=== PATIENT | female | born 2000 | race Caucasian/White ===

== ENCOUNTER 2025-03-13 12:27 | Emergency (ER) | payer MEDICAID, SELFPAY ==
[2025-03-13] VITALS (40 sets, daily range): BP systolic 80–126; BP diastolic 27–87; PULSE 64–148; RESP 12–30; TEMP 36.5–36.9; O2SAT 96–100
--- NOTE | 2025-03-13 12:30 | DI.CT_ITS ---
Exam(s) CT HEAD WO EXAM: CT HEAD WO CLINICAL HISTORY: Seizure like activity. TECHNIQUE: Imaging Protocol: Axial computed tomography images with coronal and sagittal reformatted images were created and reviewed COMPARISON: No exams were available for comparison FINDINGS: Ventricles and Extra axial spaces: Normal in size and morphology for the patient's age. Hemorrhage: None. Cerebral parenchyma: No evidence of acute infarct or mass. Midline shift: None. Brainstem/Cerebellum: Normal. Bones: No skull or facial fractures. Visualized Paranasal sinuses:Clear. Mastoids: Clear. Soft Tissues: Unremarkable. ORBITS: Unremarkable. PITUITARY: Not enlarged. IMPRESSION: No acute intracranial process. RADIATION DOSE DELIVERED: Total DLP DATA REPOSITORY: All CT scans at this facility are submitted to the National Radiology Data Registry (NRDR) Dose Index Registry (DIR) with the [employer] (A[employer]). RADIATION OPTIMIZATION: All CT scans at this facility use at least one of these dose optimization techniques: automated exposure control; mA and/or kV adjustment per patient size (includes targeted exams where dose is matched to clinical indication); or iterative reconstruction.
--- NOTE | 2025-03-13 12:30 | DI.RAD_ITS ---
Exam(s) XR CHEST 1V IN DI DEPT EXAM: XR CHEST 1V IN DI DEPT CLINICAL HISTORY: Seizure TECHNIQUE: 2D digital imaging was performed. COMPARISON: No exams were available for comparison FINDINGS: LUNGS: Clear. No pleural abnormality seen. HEART: Normal size. AORTA: Normal diameter. BONES: Unremarkable for age. Soft tissues: Unremarkable. IMPRESSION: No acute findings. DATA REPOSITORY: RADIATION DOSE DELIVERED:
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
[2025-03-13 12:46] LABS: Abs Immature Grans 0.02 10^3/uL (0.0-0.06); HCT 35.4 % (36.0-46.0); HGB 11.5 g/dL (11.2-15.7); Immature Grans % 0.3 %; MCH 28.8 pg (27.0-33.0); MCHC 32.5 % (32.0-36.0); MCV 89 fL (80-95); MPV 9.5 fL (8.0-11.0); Platelet Count 161 10^3/uL (130-400); RBC 3.99 10^6/uL (3.93-5.22); RDW 13.2 % (11.7-14.6); RDW-SD 43.0 fL; WBC 6.27 10^3/uL (4.4-10.8)
[2025-03-13 13:03] LABS: ALT 17 U/L (14-59); AST 14 U/L (15-37); Albumin 3.9 g/dL (3.4-5.0); Alkaline Phosphatase 54 U/L (46-116); Anion Gap 12.2 mmol/L (3-11); BUN 18 mg/dL (7-18); Bilirubin, Total 0.6 mg/dL (0.2-1.0); CO2 24.8 mmol/L (21.0-32.0); Calcium 9.0 mg/dL (8.5-10.1); Chloride 104 mmol/L (98-107); Estimated GFR 92.12 (mL/min/1.73m2); Glucose 126 mg/dL (74-106); Lipase 42 U/L (<78); Magnesium 1.7 mg/dL (1.8-2.4); Potassium 4.0 mmol/L (3.5-5.1); Sodium 141 mmol/L (136-145); Total Protein 7.2 g/dL (6.4-8.2)
[2025-03-13 13:06] LABS: Salicylate < 2.8 mg/dL (<2.8)
[2025-03-13 13:07] LABS: Acetaminophen < 2 ug/mL (10-30)
[2025-03-13] MEDS: diazePAM 10 MG/2 ML SYR (13:27)
[2025-03-13 13:46] LABS: INR 1.1 (0.9-1.1); PTT Activated 22.7 sec (20.6-30.2); Prothrombin Time 10.6 sec (9.1-11.1)
[2025-03-13 14:01] LABS: Glucose Negative (Negative)
[2025-03-13 14:11] LABS: RBC 0-2 HPF (0-2); WBC 0-2 HPF (0-5)
[2025-03-13 14:12] LABS: C & S Indicated? No
[2025-03-13] MEDS: Metoclopramide 10 MG/2 ML VIAL IVP (14:12)
[2025-03-13] MEDS: levETIRAcetam 1,000 MG in Normal Saline 100 ML 400 MG IVPB (14:12)
--- NOTE | 2025-03-13 14:13 | DI.US_ITS ---
Exam(s) US PELVIS EXAM: US PELVIS CLINICAL HISTORY: Lower abd PAin, Hx endometriosis TECHNIQUE: Transabdominal imaging was performed using standard protocol. COMPARISON: No exams were available for comparison FINDINGS: The bladder is unremarkable as visualized. UTERUS: Anteverted. 7.6 x 2.7 x 4.1 cm Endometrium: 6 -7 mm, homogeneous Myometrium: Unremarkable. Cervix: Unremarkable. Vagina: Tampon present. OVARIES: Right: Cyst or mass: None. Left: Cyst or mass: None. DOPPLER: Color: Symmetric and uniform flow to both ovaries. No hyperemia. CUL-DE-SAC: Free fluid: None. IMPRESSION: 1. Normal-appearing uterus with endometrial stripe within normal limits. 2. Unremarkable bilateral ovaries. DATA REPOSITORY:
[2025-03-13 14:17] LABS: Cannabinoids THC Positive (Negative); METHADONE URINE SCREEN Negative (Negative)
[2025-03-13 14:29] LABS: TSH (W/Ref FT4) 0.50 uIU/mL (0.36-3.74)
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
[2025-03-13 15:38] LABS: Creatine Kinase 61 U/L (26-192)
[2025-03-13 15:44] LABS: COVID-19 PCR Negative (Negative); RSV PCR Negative (Negative)
--- NOTE | 2025-03-13 16:49 | W.SUR.HO ---
Registration Status: REG ER Primary Language: Preferred Language: Faroese v v v v v v v v v Sending and/or Receiving Nurses: Please use comment section below to note any information pertinent to the patient hand-off not included above. Information / Comments: Report received from: Active Medications Generic Name Dose Route Start Last Admin Trade Name Freq PRN Reason Stop Dose Admin Acetaminophen 650 mg 03/13/25 15:22 Acetaminophen 325 Mg Tab PO Q4H PRN PRN Acetaminophen 0 mg 03/13/25 15:22 Acetaminophen 325 Mg Tab PO Q4H PRN PRN Al Hydrox/Mg Hydrox/Simethicone 30 ml 03/13/25 15:22 Mylanta Suspension 30 Ml Cup PO Q2H PRN PRN Docusate Sodium 100 mg 03/13/25 15:22 Docusate Sodium 100 Mg Cap PO TID PRN PRN Sodium Chloride 1,000 mls @ 125 mls/hr 03/13/25 15:30 Saline 1000ml Bag IV INFUSION [facility] IV Miscellaneous Supplies 1 each 03/13/25 12:45 Iv Access-Emergency Dept IV DIRECTED [facility] IV Miscellaneous Supplies 1 each 03/13/25 13:45 Iv Access IV DIRECTED [facility] Magnesium Hydroxide 30 ml 03/13/25 15:22 Milk Of Magnesia 30 Ml Cup PO DAILY PRN PRN Metoclopramide HCl 5 mg 03/13/25 15:36 Metoclopramide 10 Mg/2 Ml Vial IVP QID PRN Nausea / Vomiting Polyethylene Glycol 17 gm 03/13/25 15:22 Polyethylene Glycol 3350 17 Gm Packet PO DAILY PRN PRN Constipation Polyethylene Glycol 17 gm 03/13/25 15:22 Polyethylene Glycol 3350 17 Gm Packet PO DAILY PRN PRN Constipation Sodium Chloride 0 ml 03/13/25 12:34 Normal Saline Flush 10 Ml Syr IVP PRN PRN Sodium Chloride 0 ml 03/13/25 20:00 Normal Saline Flush 10 Ml Syr IVP BID COLLEEN Sodium Chloride 0 ml 03/13/25 12:34 Normal Saline 10 Ml Vial IJ DIRECTED PRN Sodium Chloride 0 ml 03/13/25 13:39 Normal Saline Flush 10 Ml Syr IVP PRN PRN Sodium Chloride 0 ml 03/13/25 20:00 Normal Saline Flush 10 Ml Syr IVP BID COLLEEN Sodium Chloride 0 ml 03/13/25 13:39 Normal Saline 10 Ml Vial IJ DIRECTED PRN Diet 03/13/25 Dinner Regular/Normal [DIET] Consults 03/13/25 15:24 TeleNeurology Consult [[facility] TeleNeurology Consult] [CONS] Routine Respiratory Pulse Oximetry 100 Pulse Oximetry 100 Pulse Oximetry 98 Pulse Oximetry 98 Pulse Oximetry 97 Pulse Oximetry 98 Pulse Oximetry 98 Pulse Oximetry 97 Pulse Oximetry 100 Pulse Oximetry 99 Pulse Oximetry 100 Pulse Oximetry 100 Pulse Oximetry 96 Pulse Oximetry 98 Pulse Oximetry 99 Pulse Oximetry 100 Pulse Oximetry 100 Pulse Oximetry 98 Pulse Oximetry 99 Pulse Oximetry 96 Pulse Oximetry 97 Pulse Oximetry 97 Pulse Oximetry 97 Pulse Oximetry 98 Pulse Oximetry 100 Oxygen Flow Rate 0 clonazepam (From Klonopin) Allergy (Unknown, Verified 03/13/25 13:45) unknown haloperidol (From Haldol) Adverse Reaction (Severe, Verified 03/13/25 13:45) Agitation hydromorphone (From Dilaudid) Adverse Reaction (Severe, Verified 03/13/25 13:45) Unknown lorazepam (From Ativan) Adverse Reaction (Intermediate, Verified 03/13/25 13:45) Agitation Resuscitation Status Full Code OXYGEN ENRICHMENT NEC (01) 03/13/25 12:24 03/13/25 13:25 03/13/25 13:32 Temperature 36.5 C Pulse 110 H 147 H Respiratory Rate 17 30 H Respiratory Effort Normal Respiratory Depth Shallow Respiratory Pattern Tachypnea Blood Pressure 95/50 L Blood Pressure Mean Blood Pressure Position Supine Pulse Oximetry 100 98 Oxygen Delivery Method Room Air Oxygen Flow Rate 0 Comment 03/13/25 13:35 03/13/25 13:37 03/13/25 13:38 Temperature Pulse 112 H 112 H 118 H Respiratory Rate 28 H 26 H Respiratory Effort Respiratory Depth Respiratory Pattern Blood Pressure 112/27 L 112/27 L 115/60 Blood Pressure Mean 57 57 69 Blood Pressure Position Pulse Oximetry 97 97 Oxygen Delivery Method Oxygen Flow Rate Comment 03/13/25 13:40 03/13/25 13:50 03/13/25 13:50 Temperature Pulse 120 H 105 H Respiratory Rate 24 19 Respiratory Effort Normal Non-Labored Respiratory Depth Normal Respiratory Pattern Normal Blood Pressure Blood Pressure Mean Blood Pressure Position Pulse Oximetry 97 96 Oxygen Delivery Method Oxygen Flow Rate Comment 03/13/25 13:52 03/13/25 14:00 03/13/25 14:01 Temperature Pulse 98 H 93 H 92 H Respiratory Rate 17 22 17 Respiratory Effort Respiratory Depth Respiratory Pattern Blood Pressure 80/47 L 98/62 L Blood Pressure Mean 56 68 Blood Pressure Position Pulse Oximetry 99 98 Oxygen Delivery Method Oxygen Flow Rate Comment provider aware continue with NS bolus 03/13/25 14:10 03/13/25 14:16 03/13/25 14:20 Temperature Pulse 87 78 88 Respiratory Rate 12 12 18 Respiratory Effort Respiratory Depth Respiratory Pattern Blood Pressure 104/62 Blood Pressure Mean 71 Blood Pressure Position Pulse Oximetry 100 100 99 Oxygen Delivery Method Oxygen Flow Rate Comment 03/13/25 14:50 03/13/25 14:53 03/13/25 15:01 Temperature Pulse 76 85 99 H Respiratory Rate 17 17 13 Respiratory Effort Respiratory Depth Respiratory Pattern Blood Pressure 93/47 L 115/63 Blood Pressure Mean 61 79 Blood Pressure Position Pulse Oximetry 98 96 100 Oxygen Delivery Method Oxygen Flow Rate Comment 03/13/25 15:02 03/13/25 15:10 03/13/25 15:16 Temperature Pulse 83 74 101 H Respiratory Rate 21 16 17 Respiratory Effort Respiratory Depth Respiratory Pattern Blood Pressure 99/61 L Blood Pressure Mean 75 Blood Pressure Position Pulse Oximetry 100 99 100 Oxygen Delivery Method Oxygen Flow Rate Comment 03/13/25 15:20 03/13/25 15:30 03/13/25 15:31 Temperature Pulse 76 75 73 Respiratory Rate 18 17 17 Respiratory Effort Respiratory Depth Respiratory Pattern Blood Pressure 102/46 L Blood Pressure Mean 65 Blood Pressure Position Pulse Oximetry 97 98 98 Oxygen Delivery Method Oxygen Flow Rate Comment 03/13/25 15:40 03/13/25 15:46 03/13/25 15:50 Temperature Pulse 71 74 77 Respiratory Rate 18 17 17 Respiratory Effort Respiratory Depth Respiratory Pattern Blood Pressure 88/50 L Blood Pressure Mean 61 Blood Pressure Position Pulse Oximetry 97 98 98 Oxygen Delivery Method Oxygen Flow Rate Comment 03/13/25 15:59 03/13/25 16:00 Temperature Pulse 72 64 Respiratory Rate 15 16 Respiratory Effort Respiratory Depth Respiratory Pattern Blood Pressure 100/62 96/52 L Blood Pressure Mean 71 64 Blood Pressure Position Pulse Oximetry 100 100 Oxygen Delivery Method Oxygen Flow Rate Comment v v v v v v v v v Sending and/or Receiving Nurses: Please use comment section below to note any information pertinent to the patient hand-off not included above. Information / Comments: Report received from: Hand off received from Ruthy prior to patient going to ultrasound approximately 1630. Awaiting arrival after ultrasound.
[2025-03-14 10:38] LABS: HSV 1 DNA Result Negative (Negative); HSV 2 DNA Result Negative (Negative)
[2025-03-14 12:11] LABS: Chlamydia Result Negative (Negative); GC Result Negative (Negative)
--- NOTE | 2025-03-14 17:10 | NUR.NOTE ---
Accessed Pt chart to check what images were taken for seizures, asked Radiology to push images to Tele Neuro for todays visit
== END 2025-03-13 17:18 | disposition short-term general hospital (02) ==
LOC: ER 15:59
PROVIDERS: Hospitalist; Emergency Provider Registered Nurse Emergency
DX: R56.9 Unspecified convulsions (principal); J02.9 Acute pharyngitis, unspecified; R11.2 Nausea with vomiting, unspecified; Z53.29 Procedure and treatment not carried out because of patient's decision for other reasons; R10.9 Unspecified abdominal pain; R19.7 Diarrhea, unspecified
CPT/HCPCS: 00123; 36416; 80053; 80307; 81025; 82550; 82962; 83690; 87491; 87529; 87591; 87637; 96365; 96375; 99291; 99292; 70450; 71045; 76856; 80185; 80320; 80329; 81003; 81015; 83605; 83735; 84146; 84443; 85025; 85610; 85730; 87070; J1953; J2765; J3360

== ENCOUNTER 2025-03-14 13:05 | Observation (INO) | payer MEDICAID, SELFPAY ==
[2025-03-14] VITALS (86 sets, daily range): BP systolic 73–127; BP diastolic 34–79; PULSE 45–113; RESP 11–24; TEMP 36.6–37.3; O2SAT 96–100
--- NOTE | 2025-03-14 13:28 | ED.GENADUL_ITS ---
Discharge Plan Discharge Details Chief Complaint: Nausea/Vomit/Diar Primary Care Provider: Tamar,Local ED Provider: Darin Barfield Home Meds and New Rx's Prescriptions: No Action Unable to Obtain HPI General Date/Time Provider Initiated Documentation: 03/14/25 13:12 . HPI Narrative: 24 year-old female presents to ED today by POV/ambulating with a chief complaint of returns after leaving AMA from the ER prior to going upstairs to Med-Surg after admission for possible seizure vs pseudo-seizure activity yesterday, having persitent nausea, and R sided abdominal pain with onset today. States she can't keep anything down. Quality described as nausea, and sharp abdominal pain with known PCOS- had U/S yesterday showing bilat normal ovaries, no radiation to chest pain, shortness of breath, further seizure activity, hematemesis, dysuria. Severity is described as severe. Palliating factors include took Zofran at home but not helping. Provoking factors include nothing specific. Patient not anticoagulated. Related Data Home Medications ?Medication ?Instructions ?Recorded ?Confirmed Unknown [Unable to Obtain] 03/13/25 Allergies Allergy/AdvReac Type Severity Reaction Status Date / Time clonazepam (From Klonopin) Allergy Unknown unknown Verified 03/13/25 13:45 haloperidol (From Haldol) AdvReac Severe Agitation Verified 03/13/25 13:45 hydromorphone (From Dilaudid) AdvReac Severe Unknown Verified 03/13/25 13:45 lorazepam (From Ativan) AdvReac Intermediate Agitation Verified 03/13/25 13:45 General Stated Complaint: Nausea/Vomit/Diar ALONA: 3 Review of Systems All systems reviewed & are unremarkable except as noted in HPI and below Exam Narrative Exam Narrative: GENERAL APPEARANCE: Well-nourished, non-toxic, awake and alert, atraumatic, mild acute distress. SKIN: Warm, pink, dry, intact, without rashes/lesions/ulcerations. HEAD: Normocephalic, atraumatic, normal hair distribution for gender/age. EYES: Normal conjunctiva, no exudates on lids/lashes. ENT: Nares patent, no circumoral cyanosis, no facial swelling NECK: Supple, trachea midline, painless cervical ROM. LUNGS/CHEST: Lungs CTA bilaterally-no rhonchi/rales/wheezes diffusely, non- labored respirations, normal A/P diameter, symmetrical expansion, no chest wall deformity HEART (CV/PV): Regular rate and rhythm without murmur, no peripheral edema, no JVD. ABDOMEN: Soft, non-distended, no guarding, right lower quadrant tenderness to McBurney's point, right upper quadrant tenderness with positive Martin sign, left CVA tenderness to percussion. MSK: Normal ROM, no swelling/deformity to bilateral UEs or LEs, moving all extremities without weakness, no cyanosis, spine midline without tenderness, normal curvature. NEURO: Mental Status AAOx4 - alert to person, place, time, events No facial droop, no forehead involvement. Motor: No focal weakness - strength 5/5 in bilateral UEs and LEs, proximal and distal, symmetric. Sensory: sensation intact to light touch globally. Gait normal: patient ambulated without ataxia into ED room. PSYCH: euthymic, cooperative, pleasant, appropriate speech Course Vital Signs Vital signs: Vital Signs Temperature 37.3 C 03/14/25 13:15 Pulse 70 03/14/25 13:15 Respiratory Rate 12 03/14/25 13:15 Blood Pressure 106/68 03/14/25 13:15 Pulse Oximetry 97 03/14/25 13:15 Temperature 37.3 C 03/14/25 13:15 Temperature Source Oral 03/14/25 13:15 Pulse 70 03/14/25 13:15 Respiratory Rate 12 03/14/25 13:15 Blood Pressure 106/68 03/14/25 13:15 Blood Pressure Position Sitting 03/14/25 13:15 Pulse Oximetry 97 03/14/25 13:15 Oxygen Delivery Method Room Air 03/14/25 13:15 Oxygen Flow Rate 0 03/14/25 13:15 Medical Decision Making This dictation utilizes [id number] dictation software and may contain unedited grammatical errors. 24 year-old female presents to ED today by POV/ambulating with a chief complaint of returns after leaving AMA from the ER prior to going upstairs to Med-Surg after admission for possible seizure vs pseudo-seizure activity yesterday, having persitent nausea, and R sided abdominal pain with onset today. States she can't keep anything down. Quality described as nausea, and sharp abdominal pain with known PCOS- had U/S yesterday showing bilat normal ovaries, no radiation to chest pain, shortness of breath, further seizure activity, hematemesis, dysuria. Severity is described as severe. Palliating factors include took Zofran at home but not helping. Provoking factors include nothing specific. Patients' medical history: Noncontributory. Family and social history: Recent emotional stressor with her partner. Pertinent exam findings / vital signs include right upper quadrant tenderness, right lower quadrant tenderness, left CVA tenderness to percussion, benign cardiopulmonary exam, neuro intact, nontoxic and afebrile. Differential / pathologies of concern include appendicitis, biliary colic, renal colic, gastritis, cyclic vomiting. Diagnostic studies of: - CBC, CMP, lactate, CRP, lipase, TSH, ultrasound of the abdomen and renal, CT ABD/pelvis with contrast. - CBC shows no leukocytosis, does show significant drop in her hemoglobin from yesterday's value of 11 today's value of 10.0 with normal platelet count - Lactate negative - CMP unremarkable - Magnesium within normal limits - CK negative - CRP negative - Lipase negative - TSH within normal limits - No abnormality of the biliary or renal system or other abdominal abnormality on ultrasound -CT pending at shift change Interventions of: -1L IVF NS, 10mg IV Reglan, 25mg IV Benadryl, 1g IV APAP, 15mg IV ketorolac. ED Course/Assessment/Plan: 24-year-old female presents with acute nausea and vomiting after being seen for possible seizure activity or pseudoseizure yesterday but left AGAINST MEDICAL ADVICE prior to being transitioned to [facility] upstairs. She reports nausea and vomiting unable to keep anything down today, she did have positive results on her UDS yesterday question cyclic vomiting versus cannabis hyperemesis, her labs are unremarkable save for an small drop in her hemoglobin without any reported symptoms of bleeding, normal pelvic ultrasound in the setting of PCOS yesterday with no ovarian cysts, normal abdominal ultrasound today, CT pending at shift change. Patient is signed out to oncoming provider Sandra Craig NP with CT pending. Findings not consistent with electrolyte abnormality, seizure activity with a negative CK and lactate, not consistent with ureteral colic or biliary colic, no hydronephrosis, patient did have a small bout of hypotension with systolic in the 80s so I do question BP cuff placement was given 1 L of fluid with improvement. Disposition of abdominal pain of unknown cause. Patient verbalized understanding of the plan and return to ED criteria and engaged in shared decision making. Medical Records Medical records reviewed: Yes I reviewed the patient's medical records. Imaging Data Radiologic Study: Attestation: I personally reviewed and interpreted this imaging study as follows: Imaging: Ultrasound Radiologist's impression: EXAM: US ABDOMEN RENAL CLINICAL HISTORY: RUQ, RLQ, flank pain TECHNIQUE: Ultrasound abdomen, kidneys and bladder performed using standard protocol. COMPARISON: No exams were available for comparison FINDINGS: LIVER: Normal size and echogenicity. No focal liver lesions are seen. GALLBLADDER: No evidence of cholelithiasis. No evidence of wall thickening. No pericholecystic fluid identified. MARTIN'S SIGN: Negative. BILIARY SYSTEM: No intrahepatic or extrahepatic biliary ductal dilation. KIDNEYS: Kidneys are symmetric in size. The right kidney measures 11.0 cm in length. The left kidney measures 9.4 cm in length. No evidence of renal calculi. No evidence of hydronephrosis. No renal mass or cyst identified. PANCREAS: Normal where visualized. SPLEEN: Not enlarged. ABDOMINAL AORTA AND IVC: Visualized portions normal caliber. ASCITES: None seen. The urinary bladder is unremarkable. Volume 27 cc. IMPRESSION: Normal sonographic appearance of the abdomen, kidneys and bladder. Lab Data Lab results reviewed: Yes I reviewed the patient's lab results. Labs: Laboratory Tests Range/Units 03/14/25 13:52 WBC (4.4-10.8) 10^3/uL 4.23 L RBC (3.93-5.22) 10^6/uL 3.49 L Hgb (11.2-15.7) g/dL 10.0 L Hct (36.0-46.0) % 31.0 L MCV (80-95) fL 89 MCH (27.0-33.0) pg 28.7 MCHC (32.0-36.0) % 32.3 RDW (11.7-14.6) % 13.3 Plt Count (130-400) 10^3/uL 151 MPV (8.0-11.0) fL 9.6 Immature Gran % % 0.2 Neutrophils % % 53.7 Lymphocytes % % 38.8 Monocytes % % 6.6 Eosinophils % % 0.5 Basophils % % 0.2 Nucleated RBC % (0.0-0.3) % 0.0 Absolute Neutrophils (1.2-6.7) 10^3/uL 2.27 Absolute Lymphocytes (1.2-3.4) 10^3/uL 1.64 Absolute Monocytes (0.1-0.8) 10^3/uL 0.28 Absolute Eosinophils (0.0-0.7) 10^3/uL 0.02 Absolute Basophils (0.0-0.2) 10^3/uL 0.01 VBG Lactate (<or=2.0) mmol/L 0.7 Sodium (136-145) mmol/L 140 Potassium (3.5-5.1) mmol/L 3.5 Chloride (98-107) mmol/L 105 Carbon Dioxide (21.0-32.0) mmol/L 28.8 Anion Gap (3-11) mmol/L 6.2 BUN (7-18) mg/dL 12 Creatinine (0.55-1.02) mg/dL 0.7 Est GFR (CKD-EPI 2020) (mL/min/1.73m2) 124.55 Glucose (74-106) mg/dL 89 Calcium (8.5-10.1) mg/dL 8.8 Magnesium (1.8-2.4) mg/dL 1.8 Total Bilirubin (0.2-1.0) mg/dL 0.6 AST (15-37) U/L 15 ALT (14-59) U/L 16 Alkaline Phosphatase (46-116) U/L 45 L Creatine Kinase (26-192) U/L 84 C-Reactive Protein (<or=0.5) mg/dL < 0.50 Total Protein (6.4-8.2) g/dL 6.4 Albumin (3.4-5.0) g/dL 3.5 Lipase (<78) U/L 39 TSH (0.36-3.74) uIU/mL 0.41 PFSH All Active Problems (Updated 03/13/25 @ 15:35 by Augusto Spencer MD) Nausea (Acute) Pharyngitis (Acute) Seizure (Acute) Social History Smoking/Tobacco Use Status: Never Smoking risk assessment performed?: Yes Alcohol Intake: never Drug use: Never Housing: other Do you feel safe at home: Yes Do you feel safe in your relationship?: Yes
--- NOTE | 2025-03-14 13:50 | DI.US_ITS ---
Exam(s) US ABDOMEN RENAL EXAM: US ABDOMEN RENAL CLINICAL HISTORY: RUQ, RLQ, flank pain TECHNIQUE: Ultrasound abdomen, kidneys and bladder performed using standard protocol. COMPARISON: No exams were available for comparison FINDINGS: LIVER: Normal size and echogenicity. No focal liver lesions are seen. GALLBLADDER: No evidence of cholelithiasis. No evidence of wall thickening. No pericholecystic fluid identified. HESS'S SIGN: Negative. BILIARY SYSTEM: No intrahepatic or extrahepatic biliary ductal dilation. KIDNEYS: Kidneys are symmetric in size. The right kidney measures 11.0 cm in length. The left kidney measures 9.4 cm in length. No evidence of renal calculi. No evidence of hydronephrosis. No renal mass or cyst identified. PANCREAS: Normal where visualized. SPLEEN: Not enlarged. ABDOMINAL AORTA AND IVC: Visualized portions normal caliber. ASCITES: None seen. The urinary bladder is unremarkable. Volume 27 cc. IMPRESSION: Normal sonographic appearance of the abdomen, kidneys and bladder. DATA REPOSITORY:
[2025-03-14 13:59] LABS: Abs Immature Grans 0.01 10^3/uL (0.0-0.06); HCT 31.0 % (36.0-46.0); HGB 10.0 g/dL (11.2-15.7); Immature Grans % 0.2 %; MCH 28.7 pg (27.0-33.0); MCHC 32.3 % (32.0-36.0); MCV 89 fL (80-95); MPV 9.6 fL (8.0-11.0); Platelet Count 151 10^3/uL (130-400); RBC 3.49 10^6/uL (3.93-5.22); RDW 13.3 % (11.7-14.6); RDW-SD 43.2 fL; WBC 4.23 10^3/uL (4.4-10.8)
[2025-03-14 14:32] LABS: ALT 16 U/L (14-59); AST 15 U/L (15-37); Albumin 3.5 g/dL (3.4-5.0); Alkaline Phosphatase 45 U/L (46-116); Anion Gap 6.2 mmol/L (3-11); BUN 12 mg/dL (7-18); Bilirubin, Total 0.6 mg/dL (0.2-1.0); CO2 28.8 mmol/L (21.0-32.0); Calcium 8.8 mg/dL (8.5-10.1); Chloride 105 mmol/L (98-107); Creatine Kinase 84 U/L (26-192); Estimated GFR 124.55 (mL/min/1.73m2); Glucose 89 mg/dL (74-106); Lipase 39 U/L (<78); Magnesium 1.8 mg/dL (1.8-2.4); Potassium 3.5 mmol/L (3.5-5.1); Sodium 140 mmol/L (136-145); TSH (W/Ref FT4) 0.41 uIU/mL (0.36-3.74); Total Protein 6.4 g/dL (6.4-8.2)
[2025-03-14 14:34] LABS: C-Reactive Protein < 0.50 mg/dL (<or=0.5)
[2025-03-14] MEDS: ACETAMINOPHEN 1,000 MG/100 ML BAG 400 MG IVPB (15:09)
[2025-03-14] MEDS: diphenhydrAMINE 50 MG/ML VIAL 25 MG IVP (15:10)
[2025-03-14] MEDS: Ketorolac 15 MG/ML VIAL IVP (15:10)
[2025-03-14] MEDS: Metoclopramide 10 MG/2 ML VIAL IVP (15:10)
[2025-03-14] MEDS: Normal Saline 1,000 ML 1000 ML IV (15:11)
[2025-03-14 15:37] LABS: Glucose Negative (Negative)
[2025-03-14 15:49] LABS: C & S Indicated? No; WBC 0-2 HPF (0-5)
--- NOTE | 2025-03-14 16:02 | W.EDPROG ---
Date of service: 03/14/25 Time of Service: 16:02 Medical Decision Making Care assumed from provider (SHAWN Siegel) Please see their initial HPI, PE, and documentation. Discussed patient details and case and pending workup and disposition. Patient is hemodynamically stable, and alert and oriented. Upon signout pending CT abdomen pelvis with IV contrast patient has had a full workup and left AMA yesterday after admission orders were placed. Today patient presents with nausea and vomiting. CBC shows white blood cell count of 4.23 hemoglobin 10.0 hematocrit 31, hemoglobin is down 1 point from yesterday, no leukocytosis or left shift, lactate within normal limits sodium potassium within normal limits urinalysis shows small blood 3-5 RBCs squamous contamination culture is not indicated at this time. There is heavy mucus noted. Patient also received an abdominal ultrasound while here today which shows nothing acute. Please see official report. 1625: Called to bedside where patient is convulsing with tonic-clonic seizure-like activity for approximately 5 minutes automated equipment engineer technician was at bedside to take patient for CT abdomen. Patient was pulling away from painful stimuli, did stop seizing with verbal reassurance. Patient did not have a telemetry neuroconsult prior to her leaving AMA yesterday. Will order that now and consider a mental health consult as well. CT Abd canceled. 174: Tele-Neuro consult in process at this time. 175: Spoke with Dr. 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 She is not currently on any antineuroleptics, antiseizure medications or any antipsychotic medications. Mental health consult ordered, will also reconsider admission if patient is agreeable. 182: Tele-psych consult ordered. 0: Called to bedside patient's blood pressure is 70/34 with repeat, patient appears pale, is nontachycardic heart rate is 61 O2 sat 99% on room air a liter of LR ordered, bedside fingerstick glucose is 75, will repeat CBC. Will call hospitalist for admission. MH is pending at this time. 2011: Spoke with Dr. Carvalho who would like to wait for CT result and then will re-convene before officially accepting patient for admission. CT shows periportal edema and inflammatory process rule out hepatitis, hepatitis panel added onto labs and tick and Lyme panel. 2114: Spoke with Dr. Carvalho again, regarding CT result and he agrees to accept patient for admission. Spoke with community health promoter page with ED who reports that Neva has no recommendations other than outpatient follow-up as far as mental health counseling and [facility] human services. Telepsych consult is pending at this time. Patient advised of admission status and is agreeable at this time of this dictation. At this time blood pressure is 98/59 MAP of 71 sinus bradycardia on the monitor, heart rate currently is 56 O2 sat 98% on room air respirate 17. Patient is resting in bed. No further episodes of seizure type activity noted for the remainder of patient's stay. No further vomiting noted. This text was generated using [id number] dictation system, please disregard any oddities of phrase or misspellings. Medical Records Medical records reviewed: Yes I reviewed the patient's medical records. Imaging Data Radiologic Study: Imaging: CT Scan Radiologist's impression: V rad CT abdomen pelvis with contrast result. 03/14/252002 p.m. US ABDOMEN RENAL 03/14/2025 1:57 PM FINDINGS: Liver: Periportal edema at the liver. Inflammatory process such as hepatitis is a consideration. Correlate clinically. No focal liver lesions present. Gallbladder and biliary ducts: Normal. No calcified stones. No ductal dilation. Pancreas: Normal. No ductal dilation. Spleen: Normal. No splenomegaly. Adrenal glands: Normal. No mass. Kidneys and ureters: Normal. No hydronephrosis. Stomach and bowel: Unremarkable. No obstruction. No mucosal thickening. Appendix: No evidence of appendicitis. Intraperitoneal space: Unremarkable. No free air. No significant fluid collection. Vasculature: Unremarkable. No abdominal aortic aneurysm. Lymph nodes: Unremarkable. No enlarged lymph nodes. Urinary bladder: Unremarkable as visualized. Reproductive: Unremarkable as visualized. Bones/joints: Unremarkable. No acute fracture. Soft tissues: Unremarkable. IMPRESSION: Periportal edema at the liver. Inflammatory process such as hepatitis is a consideration. Correlate clinically. Thank you for allowing us to participate in the care of your patient. Dictated and Authenticated by: Micha Zayas MD 03/14/2025 9:08 PM Eastern Time ([place] & [place]) Lab Data Lab results reviewed: Yes I reviewed the patient's lab results. Labs: Laboratory Tests Range/Units 03/14/25 03/14/25 13:52 15:19 WBC (4.4-10.8) 10^3/uL 4.23 L RBC (3.93-5.22) 10^6/uL 3.49 L Hgb (11.2-15.7) g/dL 10.0 L Hct (36.0-46.0) % 31.0 L MCV (80-95) fL 89 MCH (27.0-33.0) pg 28.7 MCHC (32.0-36.0) % 32.3 RDW (11.7-14.6) % 13.3 Plt Count (130-400) 10^3/uL 151 MPV (8.0-11.0) fL 9.6 Immature Gran % % 0.2 Neutrophils % % 53.7 Lymphocytes % % 38.8 Monocytes % % 6.6 Eosinophils % % 0.5 Basophils % % 0.2 Nucleated RBC % (0.0-0.3) % 0.0 Absolute Neutrophils (1.2-6.7) 10^3/uL 2.27 Absolute Lymphocytes (1.2-3.4) 10^3/uL 1.64 Absolute Monocytes (0.1-0.8) 10^3/uL 0.28 Absolute Eosinophils (0.0-0.7) 10^3/uL 0.02 Absolute Basophils (0.0-0.2) 10^3/uL 0.01 VBG Lactate (<or=2.0) mmol/L 0.7 Sodium (136-145) mmol/L 140 Potassium (3.5-5.1) mmol/L 3.5 Chloride (98-107) mmol/L 105 Carbon Dioxide (21.0-32.0) mmol/L 28.8 Anion Gap (3-11) mmol/L 6.2 BUN (7-18) mg/dL 12 Creatinine (0.55-1.02) mg/dL 0.7 Est GFR (CKD-EPI 2020) (mL/min/1.73m2) 124.55 Glucose (74-106) mg/dL 89 Calcium (8.5-10.1) mg/dL 8.8 Magnesium (1.8-2.4) mg/dL 1.8 Total Bilirubin (0.2-1.0) mg/dL 0.6 AST (15-37) U/L 15 ALT (14-59) U/L 16 Alkaline Phosphatase (46-116) U/L 45 L Creatine Kinase (26-192) U/L 84 C-Reactive Protein (<or=0.5) mg/dL < 0.50 Total Protein (6.4-8.2) g/dL 6.4 Albumin (3.4-5.0) g/dL 3.5 Lipase (<78) U/L 39 TSH (0.36-3.74) uIU/mL 0.41 Urine Color (Yellow) Yellow Urine Clarity (Clear) Clear Urine pH (5-8) 6.0 Ur Specific [place] (1.005-1.025) >= 1.030 H Urine Protein (Neg-Trace) mg/dL Negative Urine Ketones (Negative) mg/dL Negative Urine Blood (Negative) Small H Urine Nitrite (Negative) Negative Urine Bilirubin (Negative) Negative Urine Urobilinogen (Up to 0.2) mg/dL 0.2 Ur Leukocyte Esterase (Negative) Negative Urine RBC (0-2) HPF 3-5 H Urine WBC (0-5) HPF 0-2 Ur Epithelial Cells (Negative) HPF Moderate Urine Crystals (Negative) HPF Negative Urine Bacteria (Negative) HPF Moderate Urine Casts (Negative) LPF Negative Urine Mucus (Negative) Heavy Ur Culture Indicated? No Urine Glucose (Negative) mg/dL Negative Quality:SDOH Health Related Social Needs: Health related social needs inadequate housing risk of homeless food insecurity transpo insecurity house/econ circumstance finding work daily activities lonely/isolated Health related social needs details in [place] where pt was working previously Discharge Plan Disposition Patient Disposition: Admit to [facility] Condition: Stable Discharge Details Clinical Impression: Seizure Admit Date/Time: 03/14/25 21:58 Admit Provider: Micha Ceja Attending Provider: Micha Ceja Primary Care Provider: Tamar,Local ED Provider: Amna Woodruff
[2025-03-14] MEDS: Lactated Ringers 1,000 ML 1000 ML IV (19:15)
[2025-03-14 19:19] LABS: HCT 28.4 % (36.0-46.0); HGB 9.3 g/dL (11.2-15.7); MCH 28.9 pg (27.0-33.0); MCHC 32.7 % (32.0-36.0); MCV 88 fL (80-95); MPV 9.2 fL (8.0-11.0); Platelet Count 134 10^3/uL (130-400); RBC 3.22 10^6/uL (3.93-5.22); RDW 13.4 % (11.7-14.6); RDW-SD 43.9 fL; WBC 4.08 10^3/uL (4.4-10.8)
--- NOTE | 2025-03-14 19:45 | DI.CT_ITS ---
Exam(s) CT ABDOMEN PELVIS W EXAM: CT ABDOMEN PELVIS W CLINICAL HISTORY: Dropping Hbg, Abd pain. TECHNIQUE: Imaging Protocol: Axial computed tomography images with coronal and sagittal reformatted images were created and reviewed CONTRAST MATERIAL: Intravenous: Omnipaque 350 Contrast volume:75 ml Oral: no COMPARISON: CR XR CHEST 1V IN DI DEPT from 03/13/2025 US US PELVIS from 03/13/2025 US US ABDOMEN RENAL from 03/14/2025 FINDINGS: ABDOMEN and PELVIS: Lung Bases: No acute findings. Liver: Normal density. No suspicious mass. Periportal edema which could be secondary to vague wrist IV hydration. Hepatitis could also be considered. Gallbladder and biliary tract: No radiodense calculus. No wall thickening or pericholecystic fluid. No biliary dilation. Pancreas: Normal density. No abnormal calcifications or inflammatory process. No evidence of mass. Spleen: Normal. Kidneys: Normal size, contour and axis. No radiodense stones. No obstructive uropathy. No suspicious masses seen. Adrenal glands: No masses seen. Vasculature: Abdominal aorta non-dilated. The IVC is distended. This could be secondary to vigorous IV hydration. The portal and splenic veins are unremarkable. Soft tissues: Unremarkable. Bladder: No gross wall thickening. No calculi.No focal mass. Bowel: No obstruction. No bowel wall thickening. Appendix normal. Normal quantity of stool. Peritoneal cavity: No ascites. No focal collection. No mesenteric inflammatory response. No free air. Bones: Unremarkable for age. Reproductive organs: Unremarkable. Tampon in vagina. Lymph nodes: No pathologically enlarged lymph nodes. IMPRESSION:: There is periportal edema and distention of the inferior vena cava which could be secondary to visualize IV hydration. Hepatitis could also be considered. The preliminary [facility] report was reviewed. RADIATION DOSE DELIVERED: 277.63mGy.cm Total DLP DATA REPOSITORY: All CT scans at this facility are submitted to the National Radiology Data Registry (NRDR) Dose Index Registry (DIR) with the [employer] ([employer]). RADIATION OPTIMIZATION: All CT scans at this facility use at least one of these dose optimization techniques: automated exposure control; mA and/or kV adjustment per patient size (includes targeted exams where dose is matched to clinical indication); or iterative reconstruction.
[2025-03-14] MEDS: Normal Saline - Diluent 50 ML VIAL IJ (20:09)
[2025-03-14] MEDS: Normal Saline Flush 10 ML SYR IVP ×2 (20:10→23:25)
[2025-03-14] MEDS: Omnipaque 350 MG/ML 100 ML BTL IJ (20:10)
[2025-03-14 20:32] LABS: Cannabinoids THC Positive (Negative); METHADONE URINE SCREEN Negative (Negative)
--- NOTE | 2025-03-14 21:09 | DI.[facility]_ITS ---
PROCEDURE INFORMATION: Exam: CT Abdomen And Pelvis With Contrast Exam date and time: 03/14/2025 8:03 PM Age: 24 years old Clinical indication: Abdominal pain; Additional info: Dropping hbg, abd pain TECHNIQUE: Imaging protocol: Computed tomography of the abdomen and pelvis with contrast. Contrast material: OMNI 350; Contrast volume: 75 ml; Contrast route: INTRAVENOUS (IV); COMPARISON: US ABDOMEN RENAL 03/14/2025 1:57 PM FINDINGS: Liver: Periportal edema at the liver. Inflammatory process such as hepatitis is a consideration. Correlate clinically. No focal liver lesions present. Gallbladder and biliary ducts: Normal. No calcified stones. No ductal dilation. Pancreas: Normal. No ductal dilation. Spleen: Normal. No splenomegaly. Adrenal glands: Normal. No mass. Kidneys and ureters: Normal. No hydronephrosis. Stomach and bowel: Unremarkable. No obstruction. No mucosal thickening. Appendix: No evidence of appendicitis. Intraperitoneal space: Unremarkable. No free air. No significant fluid collection. Vasculature: Unremarkable. No abdominal aortic aneurysm. Lymph nodes: Unremarkable. No enlarged lymph nodes. Urinary bladder: Unremarkable as visualized. Reproductive: Unremarkable as visualized. Bones/joints: Unremarkable. No acute fracture. Soft tissues: Unremarkable. IMPRESSION: Periportal edema at the liver. Inflammatory process such as hepatitis is a consideration. Correlate clinically. Dictated and Authenticated by: Micha Zayas MD. Orderin Kacy Woo MD
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
[2025-03-14] MEDS: Normal Saline 1,000 ML 125 ML IV (23:25)
[2025-03-15 00:34] LABS: INR 1.1 (0.9-1.1); Prothrombin Time 11.3 sec (9.1-11.1)
--- NOTE | 2025-03-15 00:39 | W.PC.ACHO ---
Registration Status: ADM IN Primary Language: Preferred Language: Hungarian ED Information & Data Chief Complaint Nausea/Vomit/Diar 03/14/25 13:30 Chief Complaint Nausea/Vomit/Diar 03/14/25 13:28 Triage Note Here yesterday for seizures, 03/14/25 13:15 declined admission. Here today with nausea and vomiting. Most Recent Vital Signs Temperature 36.6 C 03/14/25 22:52 Temperature Source Tympanic 03/14/25 22:52 Pulse 62 03/14/25 22:52 Pulse 56 L 03/14/25 22:21 Respiratory Rate 16 03/14/25 22:52 Respiratory Effort Normal 03/14/25 22:57 Respiratory Depth Normal 03/14/25 22:57 Respiratory Pattern Normal 03/14/25 22:57 Blood Pressure 92/52 L 03/14/25 22:52 Blood Pressure Mean 65 03/14/25 22:52 Blood Pressure Position Sitting 03/14/25 13:15 Pulse Oximetry 96 03/14/25 22:52 Oxygen Delivery Method Room Air 03/14/25 22:24 Oxygen Flow Rate 0 03/14/25 22:24 Pain Level 0 03/14/25 22:38 Allergies clonazepam (From Klonopin) Allergy (Unknown, Verified 03/14/25 15:51) unknown haloperidol (From Haldol) Adverse Reaction (Severe, Verified 03/14/25 15:51) Agitation pt states med increases seizure activity hydromorphone (From Dilaudid) Adverse Reaction (Severe, Verified 03/14/25 15:51) Unknown pt states she lost track of days lorazepam (From Ativan) Adverse Reaction (Intermediate, Verified 03/14/25 15:51) Agitation pt states it makes me crazy Active Medications Generic Name Dose Route Start Last Admin Trade Name Freq PRN Reason Stop Dose Admin Sodium Chloride 1,000 mls @ 125 mls/hr 03/14/25 22:49 03/14/25 23:25 Saline 1000ml Bag IV 125 mls/hr INFUSION COLLEEN Administration Sodium Chloride 0 ml 03/14/25 22:49 03/14/25 23:25 Normal Saline Flush 10 Ml Syr IVP 10 ml PRN PRN Administration IV IV Catheter Type [Left Peripheral IV Antecubital] IV Catheter Gauge [Left 18 Antecubital] Diet Orders Category Date Time Status Regular/Normal [DIET] Nutrition 03/15/25 Breakfast Active Diagnostics 03/15/25 03/15/25 03/14/25 Range/Units 05:35 00:16 22:20 WBC Pending (4.4-10.8) 10^3/uL RBC Pending (3.93-5.22) 10^6/uL Hgb Pending (11.2-15.7) g/dL Hct Pending (36.0-46.0) % MCV Pending (80-95) fL MCH Pending (27.0-33.0) pg MCHC Pending (32.0-36.0) % RDW Pending (11.7-14.6) % Plt Count Pending (130-400) 10^3/uL MPV Pending (8.0-11.0) fL Immature Gran % % Neutrophils % % Lymphocytes % % Monocytes % % Eosinophils % % Basophils % % Nucleated RBC % (0.0-0.3) % Absolute Neutrophils (1.2-6.7) 10^3/uL Absolute Lymphocytes (1.2-3.4) 10^3/uL Absolute Monocytes (0.1-0.8) 10^3/uL Absolute Eosinophils (0.0-0.7) 10^3/uL Absolute Basophils (0.0-0.2) 10^3/uL PT Pending INR Pending VBG Lactate (<or=2.0) mmol/L Sodium Pending (136-145) mmol/L Potassium Pending (3.5-5.1) mmol/L Chloride Pending (98-107) mmol/L Carbon Dioxide Pending (21.0-32.0) mmol/L Anion Gap Pending (3-11) mmol/L BUN Pending (7-18) mg/dL Creatinine Pending (0.55-1.02) mg/dL Est GFR (CKD-EPI 2020) Pending (mL/min/1.73m2) Glucose Pending (74-106) mg/dL Calcium Pending (8.5-10.1) mg/dL Magnesium Pending (1.8-2.4) mg/dL Total Bilirubin Pending (0.2-1.0) mg/dL Conjugated Bilirubin Pending AST Pending (15-37) U/L ALT Pending (14-59) U/L Alkaline Phosphatase Pending (46-116) U/L Creatine Kinase (26-192) U/L C-Reactive Protein (<or=0.5) mg/dL Total Protein Pending (6.4-8.2) g/dL Albumin Pending (3.4-5.0) g/dL Lipase (<78) U/L TSH (0.36-3.74) uIU/mL Urine Color (Yellow) Urine Clarity (Clear) Urine pH (5-8) Ur Specific Ball (1.005-1.025) Urine Protein (Neg-Trace) mg/dL Urine Ketones (Negative) mg/dL Urine Blood (Negative) Urine Nitrite (Negative) Urine Bilirubin (Negative) Urine Urobilinogen (Up to 0.2) mg/dL Ur Leukocyte Esterase (Negative) Urine RBC (0-2) HPF Urine WBC (0-5) HPF Ur Epithelial Cells (Negative) HPF Urine Crystals (Negative) HPF Urine Bacteria (Negative) HPF Urine Casts (Negative) LPF Urine Mucus (Negative) Ur Culture Indicated? Urine Glucose (Negative) mg/dL U Noroxymorphone LCMSMS Urine Opiates Screen (Negative) Ur Buprenorphine Ur Norbuprenorphine U Noroxycodone LC/MS/MS Ur Oxycodone LC/MS/MS Ur Oxycodone Interp Ur Oxymorphone LC/MS/MS Urine Methadone Screen (Negative) Urine Fentanyl Screen Ur Barbiturates Screen (Negative) Ur Tricyclics Screen (Negative) Ur Amphetamines Screen (Negative) U Benzodiazepines Scrn (Negative) Urine Cocaine Screen (Negative) Ur THC Screen (Negative) Urine Xylazine B. divergens/MO-1 PCR Babesia duncani (PCR) Babesia microti DNA PCR Lyme Disease Antibody E.chaffeensis DNA (PCR) E.ewingii/canis DNA PCR E.muris eauclairensis (PCR) Hepatitis A IgM Ab Hep Bs Antigen Hep B Core Total Ab Hepatitis C Antibody A. phagocytophilum (PCR) Blood B. miyamotoi (PCR) ABO/Rh A Positive Antibody Screen NEGATIVE 03/14/25 03/14/25 03/14/25 Range/Units 21:27 19:13 15:19 WBC 4.08 L (4.4-10.8) 10^3/uL RBC 3.22 L (3.93-5.22) 10^6/uL Hgb 9.3 L (11.2-15.7) g/dL Hct 28.4 L (36.0-46.0) % MCV 88 (80-95) fL MCH 28.9 (27.0-33.0) pg MCHC 32.7 (32.0-36.0) % RDW 13.4 (11.7-14.6) % Plt Count 134 (130-400) 10^3/uL MPV 9.2 (8.0-11.0) fL Immature Gran % % Neutrophils % % Lymphocytes % % Monocytes % % Eosinophils % % Basophils % % Nucleated RBC % (0.0-0.3) % Absolute Neutrophils (1.2-6.7) 10^3/uL Absolute Lymphocytes (1.2-3.4) 10^3/uL Absolute Monocytes (0.1-0.8) 10^3/uL Absolute Eosinophils (0.0-0.7) 10^3/uL Absolute Basophils (0.0-0.2) 10^3/uL PT INR VBG Lactate (<or=2.0) mmol/L Sodium (136-145) mmol/L Potassium (3.5-5.1) mmol/L Chloride (98-107) mmol/L Carbon Dioxide (21.0-32.0) mmol/L Anion Gap (3-11) mmol/L BUN (7-18) mg/dL Creatinine (0.55-1.02) mg/dL Est GFR (CKD-EPI 2020) (mL/min/1.73m2) Glucose (74-106) mg/dL Calcium (8.5-10.1) mg/dL Magnesium (1.8-2.4) mg/dL Total Bilirubin (0.2-1.0) mg/dL Conjugated Bilirubin AST (15-37) U/L ALT (14-59) U/L Alkaline Phosphatase (46-116) U/L Creatine Kinase (26-192) U/L C-Reactive Protein (<or=0.5) mg/dL Total Protein (6.4-8.2) g/dL Albumin (3.4-5.0) g/dL Lipase (<78) U/L TSH (0.36-3.74) uIU/mL Urine Color Yellow (Yellow) Urine Clarity Clear (Clear) Urine pH 6.0 (5-8) Ur Specific Ball >= 1.030 H (1.005-1.025) Urine Protein Negative (Neg-Trace) mg/dL Urine Ketones Negative (Negative) mg/dL Urine Blood Small H (Negative) Urine Nitrite Negative (Negative) Urine Bilirubin Negative (Negative) Urine Urobilinogen 0.2 (Up to 0.2) mg/dL Ur Leukocyte Esterase Negative (Negative) Urine RBC 3-5 H (0-2) HPF Urine WBC 0-2 (0-5) HPF Ur Epithelial Cells Moderate (Negative) HPF Urine Crystals Negative (Negative) HPF Urine Bacteria Moderate (Negative) HPF Urine Casts Negative (Negative) LPF Urine Mucus Heavy (Negative) Ur Culture Indicated? No Urine Glucose Negative (Negative) mg/dL U Noroxymorphone LCMSMS Pending Urine Opiates Screen Negative (Negative) Ur Buprenorphine Pending Ur Norbuprenorphine Pending U Noroxycodone LC/MS/MS Pending Ur Oxycodone LC/MS/MS Pending Ur Oxycodone Interp Pending Ur Oxymorphone LC/MS/MS Pending Urine Methadone Screen Negative (Negative) Urine Fentanyl Screen Pending Ur Barbiturates Screen Negative (Negative) Ur Tricyclics Screen Negative (Negative) Ur Amphetamines Screen Negative (Negative) U Benzodiazepines Scrn Positive A (Negative) Urine Cocaine Screen Negative (Negative) Ur THC Screen Positive A (Negative) Urine Xylazine Pending B. divergens/MO-1 PCR Pending Babesia duncani (PCR) Pending Babesia microti DNA PCR Pending Lyme Disease Antibody Pending E.chaffeensis DNA (PCR) Pending E.ewingii/canis DNA PCR Pending E.muris eauclairensis (PCR) Pending Hepatitis A IgM Ab Pending Hep Bs Antigen Pending Hep B Core Total Ab Pending Hepatitis C Antibody Pending A. phagocytophilum (PCR) Pending Blood B. miyamotoi (PCR) Pending ABO/Rh Antibody Screen 03/14/25 Range/Units 13:52 WBC 4.23 L (4.4-10.8) 10^3/uL RBC 3.49 L (3.93-5.22) 10^6/uL Hgb 10.0 L (11.2-15.7) g/dL Hct 31.0 L (36.0-46.0) % MCV 89 (80-95) fL MCH 28.7 (27.0-33.0) pg MCHC 32.3 (32.0-36.0) % RDW 13.3 (11.7-14.6) % Plt Count 151 (130-400) 10^3/uL MPV 9.6 (8.0-11.0) fL Immature Gran % 0.2 % Neutrophils % 53.7 % Lymphocytes % 38.8 % Monocytes % 6.6 % Eosinophils % 0.5 % Basophils % 0.2 % Nucleated RBC % 0.0 (0.0-0.3) % Absolute Neutrophils 2.27 (1.2-6.7) 10^3/uL Absolute Lymphocytes 1.64 (1.2-3.4) 10^3/uL Absolute Monocytes 0.28 (0.1-0.8) 10^3/uL Absolute Eosinophils 0.02 (0.0-0.7) 10^3/uL Absolute Basophils 0.01 (0.0-0.2) 10^3/uL PT INR VBG Lactate 0.7 (<or=2.0) mmol/L Sodium 140 (136-145) mmol/L Potassium 3.5 (3.5-5.1) mmol/L Chloride 105 (98-107) mmol/L Carbon Dioxide 28.8 (21.0-32.0) mmol/L Anion Gap 6.2 (3-11) mmol/L BUN 12 (7-18) mg/dL Creatinine 0.7 (0.55-1.02) mg/dL Est GFR (CKD-EPI 2020) 124.55 (mL/min/1.73m2) Glucose 89 (74-106) mg/dL Calcium 8.8 (8.5-10.1) mg/dL Magnesium 1.8 (1.8-2.4) mg/dL Total Bilirubin 0.6 (0.2-1.0) mg/dL Conjugated Bilirubin AST 15 (15-37) U/L ALT 16 (14-59) U/L Alkaline Phosphatase 45 L (46-116) U/L Creatine Kinase 84 (26-192) U/L C-Reactive Protein < 0.50 (<or=0.5) mg/dL Total Protein 6.4 (6.4-8.2) g/dL Albumin 3.5 (3.4-5.0) g/dL Lipase 39 (<78) U/L TSH 0.41 (0.36-3.74) uIU/mL Urine Color (Yellow) Urine Clarity (Clear) Urine pH (5-8) Ur Specific Ball (1.005-1.025) Urine Protein (Neg-Trace) mg/dL Urine Ketones (Negative) mg/dL Urine Blood (Negative) Urine Nitrite (Negative) Urine Bilirubin (Negative) Urine Urobilinogen (Up to 0.2) mg/dL Ur Leukocyte Esterase (Negative) Urine RBC (0-2) HPF Urine WBC (0-5) HPF Ur Epithelial Cells (Negative) HPF Urine Crystals (Negative) HPF Urine Bacteria (Negative) HPF Urine Casts (Negative) LPF Urine Mucus (Negative) Ur Culture Indicated? Urine Glucose (Negative) mg/dL U Noroxymorphone LCMSMS Urine Opiates Screen (Negative) Ur Buprenorphine Ur Norbuprenorphine U Noroxycodone LC/MS/MS Ur Oxycodone LC/MS/MS Ur Oxycodone Interp Ur Oxymorphone LC/MS/MS Urine Methadone Screen (Negative) Urine Fentanyl Screen Ur Barbiturates Screen (Negative) Ur Tricyclics Screen (Negative) Ur Amphetamines Screen (Negative) U Benzodiazepines Scrn (Negative) Urine Cocaine Screen (Negative) Ur THC Screen (Negative) Urine Xylazine B. divergens/MO-1 PCR Babesia duncani (PCR) Babesia microti DNA PCR Lyme Disease Antibody E.chaffeensis DNA (PCR) E.ewingii/canis DNA PCR E.muris eauclairensis (PCR) Hepatitis A IgM Ab Hep Bs Antigen Hep B Core Total Ab Hepatitis C Antibody A. phagocytophilum (PCR) Blood B. miyamotoi (PCR) ABO/Rh Antibody Screen [id number] Documentation Fingerstick Glucose Start: 03/14/25 19:10 Freq: .Stat Status: Complete Protocol: Activity Type Activity Date Activity User E-sign Co-sign Detail Recorded Client Recorded Date Recorded By Document 03/14/25 19:10 NING LARIOS(3) [id number] 03/14/25 19:11 NING LARIOS(4) Intake and Output - 24 Hour Total 03/14/25 13:05 thru 03/14/25 23:53 Intake Total 2099 Balance 2099 Weight 53.524 kg Intake: IV 2099 Other: Urine Color Yellow Urine Appearance Clear Comment reported by patient Falls Risk Assessment History of Falls No History 03/14/25 22:57 Contributing Factors No Factors 03/14/25 22:57 Ambulatory Aids Independent 03/14/25 22:57 Tubes/Lines None 03/14/25 22:57 Gait Evaluation No gait disturbance 03/14/25 22:57 Cognition No cognitive impairment 03/14/25 22:57 Fall Total Score 0 03/14/25 22:57 Level of Risk Standard/Low Risk 03/14/25 22:57 Problems (Last Reviewed 03/14/25 @ 21:30 by Micha Ceja) Drug use disorder (Acute) Anemia (Acute) Abdominal pain (Acute) Acute dehydration (Acute) Seizure-like activity (Acute) Seizure (Acute) v v v v v v v v v Sending and/or Receiving Nurses: Please use comment section below to note any information pertinent to the patient hand-off not included above. Information tient patient presented to ER for nasea/vomiting, she was at ER yesterday and left AMA, not feelling good and comeback today, pt has hestory of seizures triggered by stress, pt A&Ox4 on RA, BP soft, received one littler of fluid at er, on tele she is NSR Report received from: Dolores JUNIOR
[2025-03-15 04:00] VITALS: BP 111/68; PULSE 65; RESP 16; TEMP 36.6; O2SAT 96
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
[2025-03-15 06:29] LABS: HCT 31.1 % (36.0-46.0); HGB 10.4 g/dL (11.2-15.7); MCH 29.9 pg (27.0-33.0); MCHC 33.4 % (32.0-36.0); MCV 89 fL (80-95); MPV 9.5 fL (8.0-11.0); Platelet Count 151 10^3/uL (130-400); RBC 3.48 10^6/uL (3.93-5.22); RDW 13.5 % (11.7-14.6); RDW-SD 44.3 fL; WBC 3.98 10^3/uL (4.4-10.8)
[2025-03-15 07:00] LABS: Anion Gap 7.4 mmol/L (3-11); BUN 7 mg/dL (7-18); CO2 25.6 mmol/L (21.0-32.0); Calcium 8.0 mg/dL (8.5-10.1); Chloride 109 mmol/L (98-107); Estimated GFR 124.55 (mL/min/1.73m2); Glucose 91 mg/dL (74-106); Magnesium 1.8 mg/dL (1.8-2.4); Potassium 3.5 mmol/L (3.5-5.1); Sodium 142 mmol/L (136-145)
[2025-03-15 07:05] LABS: ALT 32 U/L (14-59); AST 25 U/L (15-37); Albumin 3.0 g/dL (3.4-5.0); Alkaline Phosphatase 54 U/L (46-116); Bilirubin, Direct 0.2 mg/dL (0.0-0.2); Bilirubin, Total 0.5 mg/dL (0.2-1.0); Total Protein 5.7 g/dL (6.4-8.2)
[2025-03-15 07:51] VITALS: BP 101/65; PULSE 62; RESP 16; TEMP 36.6; O2SAT 100
[2025-03-15] MEDS: Metoclopramide 10 MG/2 ML VIAL IVP ×3 (08:02→22:26)
[2025-03-15] MEDS: Normal Saline Flush 10 ML SYR IVP ×2 (08:02→21:34)
[2025-03-15] MEDS: Normal Saline 1,000 ML 125 ML IV (08:04)
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
[2025-03-15 10:09] VITALS: BP 108/79; BP 108/91; BP 112/73; PULSE 67; PULSE 69; PULSE 74
[2025-03-15] MEDS: Ketorolac 15 MG/ML VIAL IVP (11:08)
[2025-03-15] MEDS: ACETAMINOPHEN 1,000 MG/100 ML BAG 400 MG IVPB ×3 (11:09→21:31)
[2025-03-15] MEDS: MORPHine 2 MG/ML SYR 1 MG IVP ×2 (13:19→22:39)
[2025-03-15 16:33] VITALS: BP 116/76; PULSE 72; RESP 18; TEMP 36.6; O2SAT 97
[2025-03-15] MEDS: Prochlorperazine 10 MG/2 ML VIAL 5 MG IVP (18:06)
[2025-03-15 19:03] LABS: Hepatitis A Antibody IgM Negative (Negative); Hepatitis C Ab w Rflx HCV PCR Negative (Negative)
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
[2025-03-15] MEDS: diazePAM 5 MG TAB PO (22:47)
[2025-03-16] MEDS: ACETAMINOPHEN 1,000 MG/100 ML BAG 400 MG IVPB ×2 (04:46→10:08)
[2025-03-16 07:21] LABS: HCT 32.3 % (36.0-46.0); HGB 10.6 g/dL (11.2-15.7); MCH 29.0 pg (27.0-33.0); MCHC 32.8 % (32.0-36.0); MCV 89 fL (80-95); MPV 9.4 fL (8.0-11.0); Platelet Count 170 10^3/uL (130-400); RBC 3.65 10^6/uL (3.93-5.22); RDW 13.2 % (11.7-14.6); RDW-SD 43.3 fL; WBC 3.70 10^3/uL (4.4-10.8)
[2025-03-16 08:29] LABS: ALT 28 U/L (14-59); AST 20 U/L (15-37); Albumin 3.4 g/dL (3.4-5.0); Alkaline Phosphatase 54 U/L (46-116); Anion Gap 8.7 mmol/L (3-11); BUN 5 mg/dL (7-18); Bilirubin, Total 0.6 mg/dL (0.2-1.0); CO2 26.3 mmol/L (21.0-32.0); Calcium 8.8 mg/dL (8.5-10.1); Chloride 107 mmol/L (98-107); Estimated GFR 124.55 (mL/min/1.73m2); Glucose 92 mg/dL (74-106); Magnesium 1.9 mg/dL (1.8-2.4); Potassium 3.7 mmol/L (3.5-5.1); Sodium 142 mmol/L (136-145); Total Protein 6.2 g/dL (6.4-8.2)
[2025-03-16 08:30] LABS: ALT 29 U/L (14-59); AST 19 U/L (15-37); Albumin 3.4 g/dL (3.4-5.0); Alkaline Phosphatase 55 U/L (46-116); Bilirubin, Direct 0.2 mg/dL (0.0-0.2); Bilirubin, Total 0.6 mg/dL (0.2-1.0); Total Protein 6.2 g/dL (6.4-8.2)
[2025-03-16] MEDS: Enoxaparin 40 MG/0.4 ML SYR SC (08:45)
[2025-03-16] MEDS: Normal Saline Flush 10 ML SYR IVP (08:46)
--- NOTE | 2025-03-16 09:18 | W.PM.PROGNOT ---
Date of Service Date of service: 03/16/25 Time of Service: 09:19 Objective Last Vital Signs Temp 36.6 C 03/15/25 16:33 Pulse 72 03/15/25 16:33 Resp 18 03/15/25 16:33 BP 116/76 03/15/25 16:33 Pulse Ox 97 03/15/25 16:33 Laboratory Results - last 24 hr 03/14/25 03/16/25 03/16/25 21:27 07:02 07:02 WBC 3.70 L RBC 3.65 L Hgb 10.6 L Hct 32.3 L MCV 89 MCH 29.0 MCHC 32.8 RDW 13.2 Plt Count 170 MPV 9.4 Sodium Cancelled 142 Potassium Cancelled Chloride Carbon Dioxide Anion Gap BUN Creatinine Est GFR (CKD-EPI 2020) Glucose Calcium Magnesium Total Bilirubin Conjugated Bilirubin AST ALT Alkaline Phosphatase Total Protein Albumin Hepatitis A IgM Ab Negative Hep Bs Antigen Negative Hep B Core Total Ab Negative Hepatitis C Antibody Negative 03/16/25 03/16/25 03/16/25 07:02 07:02 07:02 WBC RBC Hgb Hct MCV MCH MCHC RDW Plt Count MPV Sodium Potassium 3.7 Chloride Cancelled 107 Carbon Dioxide Cancelled 26.3 Anion Gap Cancelled BUN Creatinine Est GFR (CKD-EPI 2020) Glucose Calcium Magnesium Total Bilirubin Conjugated Bilirubin AST ALT Alkaline Phosphatase Total Protein Albumin Hepatitis A IgM Ab Hep Bs Antigen Hep B Core Total Ab Hepatitis C Antibody 03/16/25 03/16/25 03/16/25 07:02 07:02 07:02 WBC RBC Hgb Hct MCV MCH MCHC RDW Plt Count MPV Sodium Potassium Chloride Carbon Dioxide Anion Gap 8.7 BUN Cancelled 5 L Creatinine Cancelled 0.7 Est GFR (CKD-EPI 2020) Cancelled Glucose Calcium Magnesium Total Bilirubin Conjugated Bilirubin AST ALT Alkaline Phosphatase Total Protein Albumin Hepatitis A IgM Ab Hep Bs Antigen Hep B Core Total Ab Hepatitis C Antibody 03/16/25 03/16/25 03/16/25 07:02 07:02 07:02 WBC RBC Hgb Hct MCV MCH MCHC RDW Plt Count MPV Sodium Potassium Chloride Carbon Dioxide Anion Gap BUN Creatinine Est GFR (CKD-EPI 2020) 124.55 Glucose Cancelled 92 Calcium Cancelled 8.8 Magnesium Cancelled Total Bilirubin Conjugated Bilirubin AST ALT Alkaline Phosphatase Total Protein Albumin Hepatitis A IgM Ab Hep Bs Antigen Hep B Core Total Ab Hepatitis C Antibody 03/16/25 03/16/25 03/16/25 07:02 07:02 07:02 WBC RBC Hgb Hct MCV MCH MCHC RDW Plt Count MPV Sodium Potassium Chloride Carbon Dioxide Anion Gap BUN Creatinine Est GFR (CKD-EPI 2020) Glucose Calcium Magnesium 1.9 Total Bilirubin 0.6 0.6 Conjugated Bilirubin 0.2 AST 19 20 ALT 29 Alkaline Phosphatase Total Protein Albumin Hepatitis A IgM Ab Hep Bs Antigen Hep B Core Total Ab Hepatitis C Antibody 03/16/25 03/16/25 03/16/25 07:02 07:02 07:02 WBC RBC Hgb Hct MCV MCH MCHC RDW Plt Count MPV Sodium Potassium Chloride Carbon Dioxide Anion Gap BUN Creatinine Est GFR (CKD-EPI 2020) Glucose Calcium Magnesium Total Bilirubin Conjugated Bilirubin AST ALT 28 Alkaline Phosphatase 55 54 Total Protein 6.2 L 6.2 L Albumin 3.4 Hepatitis A IgM Ab Hep Bs Antigen Hep B Core Total Ab Hepatitis C Antibody 03/16/25 07:02 WBC RBC Hgb Hct MCV MCH MCHC RDW Plt Count MPV Sodium Potassium Chloride Carbon Dioxide Anion Gap BUN Creatinine Est GFR (CKD-EPI 2020) Glucose Calcium Magnesium Total Bilirubin Conjugated Bilirubin AST ALT Alkaline Phosphatase Total Protein Albumin 3.4 Hepatitis A IgM Ab Hep Bs Antigen Hep B Core Total Ab Hepatitis C Antibody
[2025-03-16] MEDS: Prochlorperazine 10 MG/2 ML VIAL 5 MG IVP ×2 (10:06→12:58)
[2025-03-16 10:30] LABS: Lyme Ab w Rflx to Lyme Confirm Negative (Negative)
[2025-03-16 11:31] LABS: Fentanyl Scr w/Rfx Confirm Negative ng/mL (<1)
[2025-03-16 12:07] VITALS: BP 122/54; PULSE 87; RESP 16; TEMP 37.1; O2SAT 99
[2025-03-16] MEDS: diazePAM 2 MG TAB PO (12:58)
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
--- NOTE | 2025-03-16 14:24 | PDOC.CMDIS ---
Date of service: 03/16/25 Time of Service: 15:20 LACE Index Scoring Tool Questions: Length of Stay (in days): 2 Was the patient admitted via the E.D.?: Yes Comorbidities: Mild Liver/Renal Disease E.D. Visits: 1 Answers: Total Score: 8 Risk of Readmission: Low Risk Care Management Discharge Plan Reason for Hospitalization: seizure like activity, dehydration, nausea Discharge Plan: Tash was discharged today with no new home care services. She was referred to [facility] today, referral and release were received as confirmed by email. She has been referred to [facility] to establish with a new PCP, and [facility] has been in contact with them as well to stress the importance of follow up. Yesterday she completed her intake with [facility], and she will be referred to psychiatry, therapy and a watch caser. This was confirmed by CM with [facility]. She was also given a copy of the local bus schedule, and her appointment stops were marked for her. Tash is fully aware of all of these referrals. Tash transported home with [employer] in a private vehicle, with the intent of stopping at the pharmacy for her medications. Patient/Family Education Needs: Review of discharge instructions, activity, limitations and discuss Ask me 3. SDOH Health Related Social Needs: Health related social needs inadequate housing risk of homeless food insecurity transpo insecurity house/econ circumstance finding work daily activities lonely/isolated Health related social needs details in [place] where pt was working previously Health related social needs details: in [place] where pt was working previously
[2025-03-17 09:41] LABS: Xylazine, Confirmation Urine Negative ng/mL (<50)
[2025-03-18 00:43] LABS: B. miyamotoi PCR Negative (Negative); Babesia divergens/MO-1 Negative (Negative); Ehrlichia muris eauclairensis Negative (Negative)
[2025-03-18 12:43] LABS: Noroxycodone-by LC-MS/MS Negative ng/mL (Cutoff: 25); Noroxymorphone-by LC-MS/MS Negative ng/mL (Cutoff: 25); Oxycodone-by LC-MS/MS Negative ng/mL (Cutoff: 25); Oxymorphone-by LC-MS/MS Negative ng/mL (Cutoff: 25)
== END 2025-03-16 14:33 | disposition home or self-care (01) ==
LOC: ER 22:16 → MS 03-15 08:30
PROVIDERS: Physician Assistant; Admitting Provider Family Medicine; Emergency Provider Registered Nurse Emergency; Responsible Provider Nurse Practitioner Acute Care; Visit Provider Family Medicine
DX: F44.5 Conversion disorder with seizures or convulsions (principal); E86.0 Dehydration; R10.30 Lower abdominal pain, unspecified; D72.819 Decreased white blood cell count, unspecified; Z79.899 Other long term (current) drug therapy; R11.2 Nausea with vomiting, unspecified; Z59.82 Transportation insecurity; F31.9 Bipolar disorder, unspecified; F43.10 Post-traumatic stress disorder, unspecified; F42.9 Obsessive-compulsive disorder, unspecified; F60.3 Borderline personality disorder; F12.90 Cannabis use, unspecified, uncomplicated; Z91.51 Personal history of suicidal behavior; F41.0 Panic disorder [episodic paroxysmal anxiety]; J02.9 Acute pharyngitis, unspecified; D64.9 Anemia, unspecified; F19.90 Other psychoactive substance use, unspecified, uncomplicated; E28.2 Polycystic ovarian syndrome; K58.9 Irritable bowel syndrome, unspecified; Z59.811 Housing instability, housed, with risk of homelessness; Z59.41 Food insecurity
CPT/HCPCS: 00123; 36415; 36416; 76770; 80048; 80053; 80076; 80307; 80348; 80365; 80375; 82550; 82962; 83690; 85027; 86704; 86709; 86803; 86850; 86900; 86901; 87340; 87798; 96127; 96361; 96365; 96366; 96372; 96375; 96376; 99285; J1650; 74177; 76700; 81003; 81015; 83605; 83735; 84443; 85025; 85610; 86140; 86618; 99223; 99233; 99239; G0378; J0131; J0780; J1200; J1885; J2270; J2765; J3490

== ENCOUNTER 2025-03-20 | Emergency (ER) | payer MEDICAID, SELFPAY ==
[2025-03-20] VITALS (25 sets, daily range): BP systolic 79–118; BP diastolic 39–70; PULSE 52–95; RESP 13–28; TEMP 36.6; O2SAT 96–100
--- NOTE | 2025-03-20 00:09 | W.ED.GENAD ---
Discharge Plan Disposition Patient Disposition: Home Condition: Improving Discharge Details Clinical Impression: Abdominal pain, Nausea and vomiting Primary Care Provider: Tamar,Local ED Provider: Augusto Williamson Meds and New Rx's Prescriptions: New metoclopramide HCl 10 mg tablet 10 mg PO QACHS Qty: 90 0RF sucralfate 1 gram tablet 1 g PO QAC Qty: 60 0RF omeprazole 20 mg capsule,delayed release(DR/EC) 20 mg PO BID Qty: 60 0RF Continued diazepam 2 mg Tablet 2 mg PO BID Qty: 30 0RF Rx Instructions: Take one in AM and one at bedtime acetaminophen 500 mg capsule 1,000 mg PO Q6H PRNQty: 30 0RF Discontinued prochlorperazine maleate [Compazine] 5 mg tablet 5 mg PO TID PRNQty: 30 0RF metoclopramide HCl [Reglan] 5 mg tablet 5 mg PO QAC Qty: 30 0RF Rx Instructions: administer 30 minutes before meals Discharge Instructions Additional Instructions: You were seen for recurrent abdominal pain and vomiting. Your exam and laboratory studies are reassuring and previous imaging was normal. It is possible that these symptoms are acid related in nature. As such I am adding 2 new medications and changing your dosing of the Reglan. Continue to work on securing primary care for follow-up. Stick with a bland diet over the next 1 to 2 weeks as you start these new medications. Return to ED for any significantly worsening or new pain, persistent vomiting, black or bloody stool, other concerns. HPI General Mode of arrival: ambulatory. Date/Time Provider Initiated Documentation: 03/20/25 00:01. Limitations to Documentation: no limitations. Information obtained by: patient, RN notes reviewed and old records reviewed. HPI Narrative: Patient presenting to ED with complaint of recurrent abdominal pain, nausea and vomiting. Patient had been admitted to this hospital on the to the for similar presentation. Workup at that time pretty unremarkable. She was discharged home on metoclopramide and acetaminophen and diazepam. She reports not taking any other medications. She had pizza and popcorn tonight which seem to set things off again. She feels that most of the pain is in her right upper quadrant. She does have some left sided back pain. She has no fever, cough, chest pain, shortness of breath. She took her metoclopramide and acetaminophen prior to coming in. Related Data Home Medications ?Medication ?Instructions ?Recorded ?Confirmed acetaminophen 500 mg capsule 1,000 mg (2 x 500 mg) PO Q6H PRN 03/16/25 03/20/25 #30 caps diazepam 2 mg tablet 2 mg PO BID #30 tabs 03/16/25 03/20/25 metoclopramide HCl 10 mg tablet 10 mg PO QACHS #90 tabs 03/20/25 omeprazole 20 mg capsule,delayed 20 mg PO BID #60 caps 03/20/25 release sucralfate 1 gram tablet 1 g PO QAC #60 tabs 03/20/25 Previous Rx's ?Medication ?Instructions ?Recorded acetaminophen 500 mg capsule 1,000 mg (2 x 500 mg) PO Q6H PRN 03/16/25 #30 caps diazepam 2 mg tablet 2 mg PO BID #30 tabs 03/16/25 metoclopramide HCl 10 mg tablet 10 mg PO QACHS #90 tabs 03/20/25 omeprazole 20 mg capsule,delayed 20 mg PO BID #60 caps 03/20/25 release sucralfate 1 gram tablet 1 g PO QAC #60 tabs 03/20/25 Allergies Allergy/AdvReac Type Severity Reaction Status Date / Time haloperidol (From Haldol) Allergy Severe Agitation Verified 03/20/25 00:16 gabapentin AdvReac Intermediate Agitation Verified 03/20/25 00:16 lorazepam (From Ativan) AdvReac Intermediate Agitation Verified 03/20/25 00:16 midazolam (From Versed) AdvReac Intermediate Psychosis Verified 03/20/25 00:16 clonazepam (From Klonopin) AdvReac Unknown unknown Verified 03/20/25 00:16 hydromorphone (From Dilaudid) AdvReac Unknown Unknown Verified 03/20/25 00:16 General ALONA: 3 Exam Narrative Exam Narrative: Const: WDWN female in NAD. VS per triage. HEENT: NC/AT. Normal facial exam. Neck: Supple. Trachea midline. Lungs: Normal respiratory effort. Lungs are clear. Cor: RRR without murmur. Good radial pulses. GI: Soft/ND. Complains of pain/tenderness throughout but has soft abdomen and no guarding. Neuro: A+O x 3. Normal speech, mentation, gait. Cranial nerves II - XII grossly intact. No gross motor or sensory deficit. Ext: No C/C/E. Medical Decision Making Patient to ED complaining of recurrent abdominal pain and vomiting. Previously admitted for same and had workup which included labs, CAT scan, ultrasound. I have reviewed these results. While the CT scan suggested some periportal findings her ultrasound was completely normal. She also had a pelvic ultrasound which was normal. This was done on the on her ED visit. At this time we will plan to place IV and medicate. She reports allergies to medications such as Haldol as well as benzodiazepines though she is taking Valium orally. She is already taking her metoclopramide. Will obtain EKG but plan for ondansetron, famotidine, prochlorperazine. Will recheck laboratory studies. Patient feeling the nurse that she does not like prochlorperazine. Was given diphenhydramine instead along with ondansetron and famotidine. Laboratory studies remained stable. She is anemic but baseline. VBG and lactic acid normal. Very slightly low potassium, calcium and magnesium. Liver function, lipase, kidney function normal. test negative. Patient had been sleeping but got up to use the restroom. Now complaining of abdominal pain once again. Will give Mylanta and pantoprazole, given that previous workup was pretty unremarkable we will treat for presumed acid related disease. Patient does report feeling better. She has not had any vomiting here. I have discussed that this may be acid related. I would like her to start a bland diet for the time being. Will start her on a PPI and Carafate as well as change her metoclopramide to 4 times daily. She is still in the process of obtaining primary care and follow-up from her discharge. Return precautions provided. Medical Records Medical records reviewed: Yes I reviewed the patient's medical records. Lab Data Lab results reviewed: Yes I reviewed the patient's lab results. ECG Data Attestation: I personally reviewed and interpreted this ECG (s) as follows: Quality:SDOH Health Related Social Needs: Health related social needs inadequate housing risk of homeless food insecurity transpo insecurity house/econ circumstance finding work daily activities lonely/isolated Health related social needs details in [place] where pt was working previously [facility] All Active Problems (Updated 03/20/25 @ 03:39 by Augusto Williamson MD) Nausea and vomiting (Acute) Abdominal pain (Acute) Leukocytosis (Acute) Anemia (Acute) Seizure-like activity (Acute) Nausea (Acute) Pharyngitis (Acute) Medical History Leukopenia Psychogenic nonepileptic seizure Drug use disorder Abdominal pain Seizure Social History Smoking/Tobacco Use Status: Never Smoking risk assessment performed?: Yes Alcohol Intake: current Alcohol Intake frequency: holidays/special occasions only Drug use: Never Substance use type: does not use Housing: homeless Do you feel safe at home: Yes Do you feel safe in your relationship?: Yes
--- NOTE | 2025-03-20 00:30 | RT.EKG_ITS ---
APPROVED REPORT Exam: Resting ECG Reason for Exam: interval monitoring Patient Location: E HR:77 bpm ECG Measurements Heart Rate 77 AXIS CO 161 P 66 QRSd 81 QRS 76 QT 383 T 57 QTc 435 Conclusion Sinus rhythm...normal P axis, V-rate 60- 99 Normal Electrocardiogram
[2025-03-20] MEDS: Normal Saline 1,000 ML 1000 ML IV (00:54)
[2025-03-20] MEDS: Famotidine 20 MG/2 ML VIAL IVP (00:55)
[2025-03-20] MEDS: diphenhydrAMINE 50 MG/ML VIAL IM/IVP (00:55)
[2025-03-20] MEDS: Ondansetron 4 MG/2 ML VIAL IVP (00:55)
[2025-03-20 01:02] LABS: BE (Venous) 1 mmol/L (-2-3); HCO3 (Venous) 26 mmol/L (23-28); O2 Sat (Venous) 84 %; TCO2 (Venous) 24 mmol/L (24-29); pCO2 (Venous) 46 mmHg (41-51); pO2 (Venous) 48 mmHg
[2025-03-20 01:04] LABS: Abs Immature Grans 0.02 10^3/uL (0.0-0.06); HCT 31.2 % (36.0-46.0); HGB 10.1 g/dL (11.2-15.7); Immature Grans % 0.3 %; MCH 28.7 pg (27.0-33.0); MCHC 32.4 % (32.0-36.0); MCV 89 fL (80-95); MPV 9.1 fL (8.0-11.0); Platelet Count 196 10^3/uL (130-400); RBC 3.52 10^6/uL (3.93-5.22); RDW 13.7 % (11.7-14.6); RDW-SD 44.5 fL; WBC 5.87 10^3/uL (4.4-10.8)
[2025-03-20 01:14] LABS: HCG Qual (Serum) Negative
[2025-03-20 01:21] LABS: ALT 17 U/L (14-59); AST 10 U/L (15-37); Albumin 3.3 g/dL (3.4-5.0); Alkaline Phosphatase 54 U/L (46-116); Anion Gap 7.5 mmol/L (3-11); BUN 12 mg/dL (7-18); Bilirubin, Total 0.3 mg/dL (0.2-1.0); CO2 28.5 mmol/L (21.0-32.0); Calcium 8.3 mg/dL (8.5-10.1); Chloride 105 mmol/L (98-107); Estimated GFR 106.11 (mL/min/1.73m2); Glucose 84 mg/dL (74-106); Lipase 70 U/L (<78); Magnesium 1.7 mg/dL (1.8-2.4); Potassium 3.4 mmol/L (3.5-5.1); Sodium 141 mmol/L (136-145); Total Protein 6.1 g/dL (6.4-8.2)
[2025-03-20] MEDS: Pantoprazole 40 MG VIAL IVP (03:05)
[2025-03-20] MEDS: Mylanta Suspension 30 ML CUP PO (03:05)
== END 2025-03-20 03:57 | disposition home or self-care (01) ==
PROVIDERS: Emergency Provider Emergency Medicine
DX: R10.11 Right upper quadrant pain (principal); R11.2 Nausea with vomiting, unspecified
CPT/HCPCS: 99284 ×2; 36415; 96374; 96375; 96372; 80053; 82805; 83690; 93005; 96361; 83605; 83735; 84703; 85025; 93010; J1200; J2405; J2470

== ENCOUNTER 2025-03-23 18:23 | Emergency (ER) | payer MEDICAID, SELFPAY ==
[2025-03-23] VITALS (42 sets, daily range): BP systolic 81–128; BP diastolic 45–73; PULSE 55–120; RESP 13–25; TEMP 37.1; O2SAT 94–100
--- NOTE | 2025-03-23 18:15 | RT.EKG_ITS ---
APPROVED REPORT Exam: Resting ECG Reason for Exam: Seizure Patient Location: E HR:100 bpm ECG Measurements Heart Rate 100 AXIS FL 155 P 67 QRSd 72 QRS 75 QT 329 T 58 QTc 425 Conclusion Sinus tachycardia...rate> 99 No STEMI
[2025-03-23] MEDS: levETIRAcetam 3,000 MG in Normal Saline 100 ML 400 MG IVPB (18:38)
[2025-03-23] MEDS: Lactated Ringers 1,000 ML 2000 ML IV (18:39)
[2025-03-23 18:43] LABS: Abs Immature Grans 0.03 10^3/uL (0.0-0.06); HCT 34.9 % (36.0-46.0); HGB 11.1 g/dL (11.2-15.7); Immature Grans % 0.4 %; MCH 28.5 pg (27.0-33.0); MCHC 31.8 % (32.0-36.0); MCV 90 fL (80-95); MPV 9.2 fL (8.0-11.0); Platelet Count 252 10^3/uL (130-400); RBC 3.90 10^6/uL (3.93-5.22); RDW 13.3 % (11.7-14.6); RDW-SD 44.2 fL; WBC 8.47 10^3/uL (4.4-10.8)
[2025-03-23 19:03] LABS: HCG Qual (Serum) Negative
--- NOTE | 2025-03-23 19:05 | W.ED.GENAD ---
Discharge Plan Disposition Patient Disposition: Home Discharge Details Clinical Impression: Seizure-like activity Primary Care Provider: Tamar,Local ED Provider: Dagoberto Chambers Home Meds and New Rx's Prescriptions: Continued diazepam 2 mg Tablet 2 mg PO BID Qty: 30 0RF Rx Instructions: Take one in AM and one at bedtime acetaminophen 500 mg capsule 1,000 mg PO Q6H PRNQty: 30 0RF metoclopramide HCl 10 mg tablet 10 mg PO QACHS Qty: 90 0RF sucralfate 1 gram tablet 1 g PO QAC Qty: 60 0RF omeprazole 20 mg capsule,delayed release(DR/EC) 20 mg PO BID Qty: 60 0RF Discharge Instructions Instructions: Seizures, Time to stop driving? Additional Instructions: Please follow-up with your primary care provider regarding your visit to the emergency department today. Be sure to discuss results of all test performed here today to include radiology, and laboratory testing as well as results for any pending cultures. Should your symptoms worsen, or if you develop new concerning symptoms, please return immediately emergency department for further evaluation. Given that you have had multiple seizures recently you should not operate a motor vehicle until you are cleared by neurologist. HPI General Date/Time Provider Initiated Documentation: 03/23/25 18:27. HPI Narrative: MDM/Narrative: 24-year-old female who is well-known to the emergency department for history of seizure versus pseudoseizure, and medication noncompliance, presents for seizure-like activity. Report from EMS meets criteria for status. Patient initially treated with midazolam 20 mg total by EMS. Will load of Keppra, and screen for metabolic infectious causes of her symptoms. During initial evaluation patient is not postictal is following directions and able to converse. She also notes that she had a syncopal episode several days ago and fell. Upon arrival patient is tachycardic. Differential: Epilepsy with medication noncompliance: Will load of Keppra continue to monitor Pseudoseizure: Will continue to monitor, patient without acute SI or HI currently with recent psychiatric evaluation several days ago during her ER stay. Tachycardia/syncope: Will obtain D-dimer to assess for potential PE. 2144 Results reviewed, D-dimer is negative, EKG without any evidence of arrhythmia, or ischemia. On reassessment patient is resting comfortably and sleeping Disposition: Home HPI: 24-year-old female with a past medical history of seizure disorder versus pseudoseizures, bipolar disorder, borderline personality, chronic abdominal pain, presents for evaluation of seizure-like activity. As per EMS, patient was at her mother living in the local hotel, when she suddenly had a tonic-clonic seizure event lasting several minutes. Upon arrival patient was no longer seizing and was treated with 10 mg of Ativan IM. Shortly thereafter patient again had another tonic-clonic seizure lasting approximately 10 minutes as per EMS and was treated again with 10 mg of Ativan. Chart review shows that patient has been evaluated in the emergency department several times for similar complaints, with no significant findings on her workup however with continued medication noncompliance. Patient also admits to a lengthy behavioral health history to include borderline personality syndrome, bipolar disorder, anxiety disorder for which she is currently being treated with Ativan 2 mg p.o. She denies any SI or HI. She does note several days ago she at some point was climbing a hill developed a rapid heart rate and passed out and states that she hit her head when she fell. ROS: Negative besides as mentioned above Exam: Gen: A&O NAD HEENT: NCAT, EOMI, not icteric. External ears normal. No rhinorrhea. Moist mucous membranes. Neck: Supple, full range of motion, no observable masses, No meningeal sign. Lungs: No Respiratory distress. CV: RRR, no edema. Abdomen: Soft, nondistended, No rebound tenderness. MSK: No joint swelling, no redness. Skin: No rashes, petechiae, lesions. Normal color per patient. Neuro: Normal Gait, Grossly intact. Psych: Appropriate for situation. Rhythm: Sinus tachycardia Rate: 100 bpm Leslie: Normal axis Intervals: Normal intervals Other findings: No acute ST segment or T wave changes to suggest acute ischemia. Labs: [] Radiology: [] Related Data Home Medications ?Medication ?Instructions ?Recorded ?Confirmed acetaminophen 500 mg capsule 1,000 mg (2 x 500 mg) PO Q6H PRN 03/16/25 03/23/25 #30 caps diazepam 2 mg tablet 2 mg PO BID #30 tabs 03/16/25 03/23/25 metoclopramide HCl 10 mg tablet 10 mg PO QACHS #90 tabs 03/20/25 03/23/25 omeprazole 20 mg capsule,delayed 20 mg PO BID #60 caps 03/20/25 03/23/25 release sucralfate 1 gram tablet 1 g PO QAC #60 tabs 03/20/25 03/23/25 Previous Rx's ?Medication ?Instructions ?Recorded acetaminophen 500 mg capsule 1,000 mg (2 x 500 mg) PO Q6H PRN 03/16/25 #30 caps diazepam 2 mg tablet 2 mg PO BID #30 tabs 03/16/25 metoclopramide HCl 10 mg tablet 10 mg PO QACHS #90 tabs 03/20/25 omeprazole 20 mg capsule,delayed 20 mg PO BID #60 caps 03/20/25 release sucralfate 1 gram tablet 1 g PO QAC #60 tabs 03/20/25 Allergies Allergy/AdvReac Type Severity Reaction Status Date / Time haloperidol (From Haldol) Allergy Severe Agitation Verified 03/23/25 21:10 gabapentin AdvReac Intermediate Agitation Verified 03/23/25 21:10 lorazepam (From Ativan) AdvReac Intermediate Agitation Verified 03/23/25 21:10 midazolam (From Versed) AdvReac Intermediate Psychosis Verified 03/20/25 00:16 clonazepam (From Klonopin) AdvReac Unknown unknown Verified 03/20/25 00:16 hydromorphone (From Dilaudid) AdvReac Unknown Unknown Verified 03/20/25 00:16 General Stated Complaint: Seizure ALONA: 3 Course Vital Signs Vital signs: Vital Signs Temperature 37.1 C 03/23/25 18:24 Pulse 120 H 03/23/25 18:24 Respiratory Rate 17 03/23/25 18:24 Pulse Oximetry 99 03/23/25 18:24 Temperature 37.1 C 03/23/25 18:24 Pulse 90 03/23/25 18:50 Pulse 90 03/23/25 18:50 Respiratory Rate 16 03/23/25 18:50 Respiratory Effort Normal, Non-Labored 03/23/25 18:57 Respiratory Depth Normal 03/23/25 18:57 Respiratory Pattern Normal 03/23/25 18:57 Blood Pressure 105/52 L 03/23/25 18:46 Blood Pressure Mean 67 03/23/25 18:46 Blood Pressure Position Supine 03/23/25 18:24 Pulse Oximetry 94 03/23/25 18:50 Oxygen Delivery Method Nasal Cannula 03/23/25 18:24 Oxygen Flow Rate 2 03/23/25 18:24 Lab/Test Results Lab/Test Results: Laboratory Tests Range/Units 03/23/25 18:25 WBC (4.4-10.8) 10^3/uL 8.47 RBC (3.93-5.22) 10^6/uL 3.90 L Hgb (11.2-15.7) g/dL 11.1 L Hct (36.0-46.0) % 34.9 L MCV (80-95) fL 90 MCH (27.0-33.0) pg 28.5 MCHC (32.0-36.0) % 31.8 L RDW (11.7-14.6) % 13.3 Plt Count (130-400) 10^3/uL 252 MPV (8.0-11.0) fL 9.2 Immature Gran % % 0.4 Neutrophils % % 61.2 Lymphocytes % % 28.9 Monocytes % % 6.6 Eosinophils % % 2.5 Basophils % % 0.4 Nucleated RBC % (0.0-0.3) % 0.0 Absolute Neutrophils (1.2-6.7) 10^3/uL 5.19 Absolute Lymphocytes (1.2-3.4) 10^3/uL 2.45 Absolute Monocytes (0.1-0.8) 10^3/uL 0.56 Absolute Eosinophils (0.0-0.7) 10^3/uL 0.21 Absolute Basophils (0.0-0.2) 10^3/uL 0.03 Serum HCG, Qual Negative Medical Decision Making Quality:SDOH Health Related Social Needs: Health related social needs inadequate housing risk of homeless food insecurity transpo insecurity house/econ circumstance finding work daily activities lonely/isolated Health related social needs details in [place] where pt was working previously PFSH All Active Problems (Updated 03/23/25 @ 22:21 by Dagoberto Chambers MD) Nausea and vomiting (Acute) Abdominal pain (Acute) Leukocytosis (Acute) Anemia (Acute) Seizure-like activity (Acute) Nausea (Acute) Pharyngitis (Acute) Medical History Leukopenia Psychogenic nonepileptic seizure Drug use disorder Abdominal pain Seizure Social History Smoking/Tobacco Use Status: Never Smoking risk assessment performed?: Yes Alcohol Intake: current Alcohol Intake frequency: holidays/special occasions only Drug use: Socially Substance use type: marijuana Housing: homeless Do you feel safe at home: Yes Do you feel safe in your relationship?: Yes
[2025-03-23 19:09] LABS: ALT 19 U/L (14-59); AST 15 U/L (15-37); Albumin 3.6 g/dL (3.4-5.0); Alkaline Phosphatase 59 U/L (46-116); Anion Gap 8.0 mmol/L (3-11); BUN 11 mg/dL (7-18); Bilirubin, Total 0.4 mg/dL (0.2-1.0); CO2 27.0 mmol/L (21.0-32.0); Calcium 8.7 mg/dL (8.5-10.1); Chloride 104 mmol/L (98-107); Estimated GFR 92.12 (mL/min/1.73m2); Glucose 91 mg/dL (74-106); Magnesium 1.6 mg/dL (1.8-2.4); Potassium 3.8 mmol/L (3.5-5.1); Sodium 139 mmol/L (136-145); TSH 0.71 uIU/mL (0.36-3.74); Total Protein 6.7 g/dL (6.4-8.2)
[2025-03-23 19:12] LABS: Troponin I < 4 ng/L (<or=51)
[2025-03-23 19:16] LABS: D-Dimer 180 ng/mlFEU (<500)
[2025-03-23 19:58] LABS: Troponin I < 4 ng/L (<or=51)
[2025-03-23] MEDS: MAGNESIUM SULFATE 2 GM/50 ML BAG IV_INF (20:24)
== END 2025-03-23 22:50 | disposition home or self-care (01) ==
PROVIDERS: Emergency Provider General Practice
DX: R56.9 Unspecified convulsions (principal); Z59.10 Inadequate housing, unspecified; Z59.41 Food insecurity; Z59.82 Transportation insecurity
CPT/HCPCS: 80053; 93005; 96365; 96366; 96367; 99284; 83735; 84443; 84484; 84703; 85025; 85379; 93010; J1953; J3475

== ENCOUNTER 2025-03-29 14:08 | Emergency (ER) | payer MEDICAID, SELFPAY ==
[2025-03-29 14:11] VITALS: BP 113/68; PULSE 105; RESP 15; TEMP 35.7; O2SAT 98
--- NOTE | 2025-03-29 14:15 | DI.RAD_ITS ---
Exam(s) XR HAND RT COMPLETE XR WRIST RT COMPLETE EXAM: XR WRIST RT COMPLETE CLINICAL HISTORY: trauma. TECHNIQUE: 2D digital imaging was performed. Three views of the wrist and hand. COMPARISON: CR XR HAND RT COMPLETE from 03/29/2025 FINDINGS: BONES: No acute fracture is present. No bony destructive lesion is seen. Chronic appearing deformity of the 5th metacarpal which could be congenital. JOINTS: The carpal bones are normally aligned. SOFT TISSUE: Normal. IMPRESSION: No acute abnormality in the hand or wrist. DATA REPOSITORY: RADIATION DOSE DELIVERED:
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
[2025-03-29] MEDS: Ibuprofen 600 MG TAB PO (14:35)
== END 2025-03-29 15:29 | disposition home or self-care (01) ==
PROVIDERS: Emergency Provider General Practice
DX: S60.221A Contusion of right hand, initial encounter (principal); W22.01XA Walked into wall, initial encounter
CPT/HCPCS: 99284; 99283; 73110; 73130

== ENCOUNTER 2025-03-30 21:25 | Emergency (ER) | payer MEDICAID, SELFPAY ==
[2025-03-30 21:25] VITALS: BP 134/74; PULSE 96; RESP 15; TEMP 36.8; O2SAT 97
[2025-03-30 22:01] LABS: Abs Immature Grans 0.01 10^3/uL (0.0-0.06); HCT 34.0 % (36.0-46.0); HGB 11.0 g/dL (11.2-15.7); Immature Grans % 0.2 %; MCH 28.7 pg (27.0-33.0); MCHC 32.4 % (32.0-36.0); MCV 89 fL (80-95); MPV 9.5 fL (8.0-11.0); Platelet Count 208 10^3/uL (130-400); RBC 3.83 10^6/uL (3.93-5.22); RDW 13.2 % (11.7-14.6); RDW-SD 43.1 fL; WBC 6.24 10^3/uL (4.4-10.8)
--- NOTE | 2025-03-30 22:19 | NUR.NOTE ---
Provider, Lico notified in person of lactate of 4.1 as reported by lab. Read back acknowledgement.
[2025-03-30 22:26] LABS: ALT 18 U/L (14-59); AST 13 U/L (15-37); Albumin 3.8 g/dL (3.4-5.0); Alkaline Phosphatase 56 U/L (46-116); Anion Gap 11.2 mmol/L (3-11); BUN 10 mg/dL (7-18); Bilirubin, Total 0.6 mg/dL (0.2-1.0); CO2 26.8 mmol/L (21.0-32.0); Calcium 9.1 mg/dL (8.5-10.1); Chloride 102 mmol/L (98-107); Creatine Kinase 72 U/L (26-192); Estimated GFR 81.18 (mL/min/1.73m2); Glucose 75 mg/dL (74-106); Lipase 45 U/L (<78); Magnesium 1.6 mg/dL (1.8-2.4); Potassium 3.7 mmol/L (3.5-5.1); Sodium 140 mmol/L (136-145); TSH (W/Ref FT4) 0.92 uIU/mL (0.36-3.74); Total Protein 7.0 g/dL (6.4-8.2)
[2025-03-30 22:30] LABS: Ammonia < 10 umol/L (11-32)
--- NOTE | 2025-03-30 22:34 | ED.GENADUL_ITS ---
Discharge Plan Disposition Patient Disposition: Home Condition: Stable Discharge Details Clinical Impression: Seizure-like activity Primary Care Provider: Tamar,Local ED Provider: Darin Barfield Home Meds and New Rx's Prescriptions: Continued diazepam 2 mg Tablet 2 mg PO BID Qty: 30 0RF Rx Instructions: Take one in AM and one at bedtime metoclopramide HCl 10 mg tablet 10 mg PO QACHS Qty: 90 0RF ibuprofen 600 mg tablet 600 mg PO Q6H PRNQty: 30 0RF Discharge Instructions Instructions: Time to stop driving?, Seizures, Adult ED Additional Instructions: You were seen in the emergency department for your seizure-like activity, you are on your 2 mg twice daily Valium, you refused Keppra here, I am referring you to [facility] for help in obtaining counseling plus or minus psychiatry, you can talk to your primary care provider which I am recommending you establish and I have sent a referral for about outpatient referral to neurology for EEG to definitively rule out any physiologic seizures. Referrals: [facility] [Provider Group] [facility] [Provider Group] [facility] [Provider Group] [facility] [Outside] HPI General Date/Time Provider Initiated Documentation: 03/30/25 21:34 . HPI Narrative: 24 year-old female presents to ED today by EMS with a chief complaint of witnessed seizure activity while on video chat with her boyfriend, then further witnessed brief seizure activity by EMS en route with onset tonight. Patient has been seen multiple times for this in the past few months question seizure vs pseudoseizure- seen by [facility] tele-neuro recommended against starting Keppra but was started on 2mg BID valium which she missed a dose of today. Quality described as doesn't remember what happened, no radiation to bite of tongue, incontinence, fever, profound weakness, denies intoxication, endorses trouble sleeping lately. Severity is described as unable to quantify. Palliating factors include nothing given en route. Provoking factors include nothing specific. Patient not anticoagulated. Related Data Home Medications ?Medication ?Instructions ?Recorded ?Confirmed diazepam 2 mg tablet 2 mg PO BID #30 tabs 5 03/30/25 metoclopramide HCl 10 mg tablet 10 mg PO QACHS #90 tab s 03/20/25 03/30/25 ibuprofen 600 mg tablet 600 mg PO Q6H PRN #30 tabs 0 9/03/25 09/04/25 Previous Rx's ?Medication ?Instructions ?Recorded diazepam 2 mg tablet 2 mg PO BID #30 tabs 5 metoclopramide HCl 10 mg tablet 10 mg PO QACHS #90 tab s 03/20/25 ibuprofen 600 mg tablet 600 mg PO Q6H PRN #30 tabs 0 03/29/25 Allergies Allergy/AdvReac Type Severity Reaction Status Date / Time haloperidol (From Haldol) Allergy Severe Agitation Verified 03/30/25 21:31 gabapentin AdvReac Intermediate Agitation Verified 03/30/25 21:31 lorazepam (From Ativan) AdvReac Intermediate Agitation Verified 03/30/25 21:31 midazolam (From Versed) AdvReac Intermediate Psychosis Verified 03/30/25 21:31 clonazepam (From Klonopin) AdvReac Unknown unknown Verified 03/30/25 21:31 hydromorphone (From Dilaudid) AdvReac Unknown Unknown Verified 03/30/25 21:31 General Stated Complaint: Seizure ALONA: 2 Review of Systems All systems reviewed & are unremarkable except as noted in HPI and below Exam Narrative Exam Narrative: GENERAL APPEARANCE: Well-nourished, non-toxic, awake and alert but slow to respond, atraumatic, mild acute distress. SKIN: Warm, pink, dry, intact, without rashes/lesions/ulcerations. HEAD: Normocephalic, atraumatic, normal hair distribution for gender/age. EYES: Normal conjunctiva, no exudates on lids/lashes. ENT: Nares patent, no circumoral cyanosis, no facial swelling NECK: Supple, trachea midline, painless cervical ROM. LUNGS/CHEST: Lungs CTA bilaterally- no rhonchi/rales/wheezes diffusely, non- labored respirations, normal A/P diameter, symmetrical expansion, no chest wall deformity HEART (CV/PV): Regular rate and rhythm without murmur, no peripheral edema, no JVD. ABDOMEN: Soft, non-distended, no guarding. MSK: Normal ROM, no swelling/deformity to bilateral UEs or LEs, moving all extremities without weakness, no cyanosis, spine midline without tenderness, normal curvature. NEURO: Mental Status AAOx4 - alert to person, place, time, events No facial droop, no forehead involvement. Motor: No focal weakness - strength 5/5 in bilateral UEs and LEs, proximal and distal, symmetric. Sensory: sensation intact to light touch globally. Gait normal: patient ambulated without ataxia into ED room. PSYCH: dysthymic, cooperative, pleasant, appropriate speech Course Vital Signs Vital signs: Vital Signs Temperature 36.8 C 03/30/25 21:25 Pulse 96 H 03/30/25 21:25 Respiratory Rate 15 03/30/25 21:25 Blood Pressure 134/74 03/30/25 21:25 Pulse Oximetry 97 03/30/25 21:25 Temperature 36.8 C 03/30/25 21:25 Temperature Source Tympanic 03/30/25 21: Pulse 96 H 03/30/25 21:25 Respiratory Rate 15 03/30/25 21:25 Respiratory Effort Normal, Non-Labored 03/30/25 21:34 Respiratory Depth Normal 03/30/25 21:34 Respiratory Pattern Normal 03/30/25 21:34 Blood Pressure 134/74 03/30/25 21:25 Blood Pressure Position Sitting 03/30/25 21:25 Pulse Oximetry 97 03/30/25 21:25 Oxygen Delivery Method Room Air 03/30/25 21:25 Oxygen Flow Rate 0 03/30/25 21:25 Lab/Test Results Lab/Test Results: Laboratory Tests Range/Units 03/30/25 03/30/25 21:33 22:10 WBC (4.4-10.8) 10^3/uL 6.24 RBC (3.93-5.22) 10^6/uL 3.83 L Hgb (11.2-15.7) g/dL 11.0 L Hct (36.0-46.0) % 34.0 L MCV (80-95) fL 89 MCH (27.0-33.0) pg 28.7 MCHC (32.0-36.0) % 32.4 RDW (11.7-14.6) % 13.2 Plt Count (130-400) 10^3/uL 208 MPV (8.0-11.0) fL 9.5 Immature Gran % % 0.2 Neutrophils % % 58.0 Lymphocytes % % 30.6 Monocytes % % 8.7 Eosinophils % % 2.2 Basophils % % 0.3 Nucleated RBC % (0.0-0.3) % 0.0 Absolute Neutrophils (1.2-6.7) 10^3/uL 3.62 Absolute Lymphocytes (1.2-3.4) 10^3/uL 1.91 Absolute Monocytes (0.1-0.8) 10^3/uL 0.54 Absolute Eosinophils (0.0-0.7) 10^3/uL 0.14 Absolute Basophils (0.0-0.2) 10^3/uL 0.02 VBG Lactate (<or=2.0) mmol/L 4.1 H* Sodium (136-145) mmol/L 140 Potassium (3.5-5.1) mmol/L 3.7 Chloride (98-107) mmol/L 102 Carbon Dioxide (21.0-32.0) mmol/L 26.8 Anion Gap (3-11) mmol/L 11.2 H BUN (7-18) mg/dL 10 Creatinine (0.55-1.02) mg/dL 1.0 Est GFR (CKD-EPI 2020) (mL/min/1.73m2) 81.18 Glucose (74-106) mg/dL 75 Calcium (8.5-10.1) mg/dL 9.1 Magnesium (1.8-2.4) mg/dL 1.6 L Total Bilirubin (0.2-1.0) mg/dL 0.6 AST (15-37) U/L 13 L ALT (14-59) U/L 18 Alkaline Phosphatase (46-116) U/L 56 Ammonia (11-32) umol/L < 10 L Creatine Kinase (26-192) U/L 72 Total Protein (6.4-8.2) g/dL 7.0 Albumin (3.4-5.0) g/dL 3.8 Lipase (<78) U/L 45 TSH (0.36-3.74) uIU/mL 0.92 Medical Decision Making This dictation utilizes [id number] dictation software and may contain unedited grammatical errors. 24 year-old female presents to ED today by EMS with a chief complaint of witnessed seizure activity while on video chat with her boyfriend, then further witnessed brief seizure activity by EMS en route with onset tonight. Patient has been seen multiple times for this in the past few months question seizure vs pseudoseizure- seen by [facility] tele-neuro recommended against starting Keppra but was started on 2mg BID valium which she missed a dose of today. Quality described as doesn't remember what happened, no radiation to bite of tongue, incontinence, fever, profound weakness, denies intoxication, endorses trouble sleeping lately. Severity is described as unable to quantify. Palliating factors include nothing given en route. Provoking factors include nothing specific. Patients' medical history: Psychogenic nonepileptic seizure, drug use disorder. Family and social history: Lives at home with family, denies EtOH or illicit substance use. Pertinent exam findings / vital signs include semipostictal on arrival, does not remember events, mild tachycardia 102, benign abdomen, no focal weakness. Differential / pathologies of concern include seizure activity, pseudoseizure, not stroke, not syncope. Diagnostic studies of: - CBC, CMP, CK, lactate, ammonia, UDS, alcohol level, lipase, magnesium, TSH, urinalysis, urine test -CBC shows no leukocytosis - Lactate 4.1 - CK within normal limits - Ammonia negative - CMP without actionable abnormality - Alcohol level negative - UDS pending - Urinalysis pending - Urine test pending - TSH within normal limits - Magnesium mildly low at 1.6 Interventions of: -2 g loading dose of Keppra, patient refused initially but I counseled her that she is refusing a possibly life-saving medication should she have another further seizure event here and she might end up intubated, she reluctantly excepted Keppra. - Patient became irate, refused orange juice despite a blood sugar on arrival of 80- refused to eat or drink anything. Refused Keppra- then reluctantly agreed to it, then started having a tantrum when tele-neuro came on screen as she was on videochat with her boyfriend and possibly recording the visit through these means. Her keppra was stopped by request, she had received minimal amounts- and took her own 2mg Valium in ED. She continued to yell at RN and provider. - Patient was then informed if she would not engage with the visit she would be signing out against medical advice with short-term referral to outpatient neurology for EEG study, with no change advised by [facility] tele-neuro to her BID valium. She reneg'd and agreed to see tele-neurology. - Patient did later calm down and engaged with teleneuro, likely psychogenic nonepileptic episodes, patient is not taking any medications for her psych conditions, I will have [facility] follow-up with her to arrange her for counseling plus or minus psychiatry, as well as PCP and care management for complex issues. Patient needs guidance for obtaining proper consults and care. Needs non- emergent possible referral to Neuro for EEG at some point. ED Course/Assessment/Plan: 24-year-old female presents by EMS with seizure-like activity, has question of seizure versus pseudoseizure, recent admission for this started on Valium twice daily, missed a dose. Performing teleneurology for recommendation on EEG, they recommend psychiatry and other mental health referrals. No med changes recommended. Findings not consistent with status epilepticus. Disposition of Seizure-like Activity. Patient verbalized understanding of the plan and return to ED criteria and engaged in shared decision making. Medical Records Medical records reviewed: Yes I reviewed the patient's medical records. Lab Data Lab results reviewed: Yes I reviewed the patient's lab results. Labs: Laboratory Tests Range/Units 03/30/25 03/30/25 21:33 22:10 WBC (4.4-10.8) 10^3/uL 6.24 RBC (3.93-5.22) 10^6/uL 3.83 L Hgb (11.2-15.7) g/dL 11.0 L Hct (36.0-46.0) % 34.0 L MCV (80-95) fL 89 MCH (27.0-33.0) pg 28.7 MCHC (32.0-36.0) % 32.4 RDW (11.7-14.6) % 13.2 Plt Count (130-400) 10^3/uL 208 MPV (8.0-11.0) fL 9.5 Immature Gran % % 0.2 Neutrophils % % 58.0 Lymphocytes % % 30.6 Monocytes % % 8.7 Eosinophils % % 2.2 Basophils % % 0.3 Nucleated RBC % (0.0-0.3) % 0.0 Absolute Neutrophils (1.2-6.7) 10^3/uL 3.62 Absolute Lymphocytes (1.2-3.4) 10^3/uL 1.91 Absolute Monocytes (0.1-0.8) 10^3/uL 0.54 Absolute Eosinophils (0.0-0.7) 10^3/uL 0.14 Absolute Basophils (0.0-0.2) 10^3/uL 0.02 VBG Lactate (<or=2.0) mmol/L 4.1 H* Sodium (136-145) mmol/L 140 Potassium (3.5-5.1) mmol/L 3.7 Chloride (98-107) mmol/L 102 Carbon Dioxide (21.0-32.0) mmol/L 26.8 Anion Gap (3-11) mmol/L 11.2 H BUN (7-18) mg/dL 10 Creatinine (0.55-1.02) mg/dL 1.0 Est GFR (CKD-EPI 2020) (mL/min/1.73m2) 81.18 Glucose (74-106) mg/dL 75 Calcium (8.5-10.1) mg/dL 9.1 Magnesium (1.8-2.4) mg/dL 1.6 L Total Bilirubin (0.2-1.0) mg/dL 0.6 AST (15-37) U/L 13 L ALT (14-59) U/L 18 Alkaline Phosphatase (46-116) U/L 56 Ammonia (11-32) umol/L < 10 L Creatine Kinase (26-192) U/L 72 Total Protein (6.4-8.2) g/dL 7.0 Albumin (3.4-5.0) g/dL 3.8 Lipase (<78) U/L 45 TSH (0.36-3.74) uIU/mL 0.92 Ethyl Alcohol (<10) mg/dL < 3.0 Quality:SDOH Health Related Social Needs: Health related social needs inadequate housing risk of homeless food insecurity transpo insecurity house/econ circumstance finding work daily acti vities lonely/isolated Health related social needs details in [place] w here pt was working previously PFSH All Active Problems (Updated 03/30/25 @ 23:04 by SHAWN Delaney) Seizure-like activity (Acute) Contusion of hand, right (Acute) Nausea and vomiting (Acute) Abdominal pain (Acute) Leukocytosis (Acute) Anemia (Acute) Seizure-like activity (Acute) Nausea (Acute) Pharyngitis (Acute) Medical History Leukopenia Psychogenic nonepileptic seizure Drug use disorder Abdominal pain Seizure Social History Smoking/Tobacco Use Status: Never Smoking risk assessment performed?: Yes Alcohol Intake: current Alcohol Intake frequency: holidays/special occasions only Drug use: Socially Substance use type: marijuana Housing: homeless Do you feel safe at home: Yes Do you feel safe in your relationship?: Yes
[2025-03-30] MEDS: levETIRAcetam 2,000 MG in Normal Saline 100 ML 400 MG IVPB (22:36)
[2025-03-31 00:48] VITALS: BP 148/68; PULSE 104; RESP 16; TEMP 36.8; O2SAT 100
== END 2025-03-31 01:29 | disposition home or self-care (01) ==
PROVIDERS: Emergency Provider Physician Assistant
DX: R56.9 Unspecified convulsions (principal); Z59.10 Inadequate housing, unspecified; Z59.41 Food insecurity; Z59.82 Transportation insecurity; Z59.89 Other problems related to housing and economic circumstances; Z60.8 Other problems related to social environment
CPT/HCPCS: 80053; 82550; 83690; 96365; 99284; 80320; 82140; 83605; 83735; 84443; 85025; J1953

== ENCOUNTER 2025-04-11 11:13 | Emergency (ER) | payer MEDICAID, SELFPAY ==
[2025-04-11] VITALS (16 sets, daily range): BP systolic 86–130; BP diastolic 35–80; PULSE 57–88; RESP 12–21; TEMP 36.8–37; O2SAT 96–100
--- NOTE | 2025-04-11 11:39 | W.ED.GENAD ---
Discharge Plan Disposition Patient Disposition: Home Discharge Details Clinical Impression: History of benzodiazepine use Primary Care Provider: Tamar,Local ED Provider: Frankie Cunningham Home Meds and New Rx's Prescriptions: Continued metoclopramide HCl 10 mg tablet 10 mg PO QACHS Qty: 90 0RF ibuprofen 600 mg tablet 600 mg PO Q6H PRNQty: 30 0RF Discontinued diazepam 2 mg Tablet 2 mg PO BID Qty: 30 0RF Rx Instructions: Take one in AM and one at bedtime Discharge Instructions Additional Instructions: You are seen in the emergency department for your nausea. Your blood work shows your kidneys are working well. Please return to the emergency department if you develop any fevers chills nausea or vomiting. Otherwise please follow-up with your primary care provider later this week. Discharge Data Discharge Date/Time-TO BE ENTERED AT DEPARTURE: 04/11/25 14:17 HPI General Date/Time Provider Initiated Documentation: 04/11/25 11:39. HPI Narrative: MDM This is an overall quite well-appearing afebrile and not tachycardic female with subjective nausea and visual disturbances for which patient will undergo ED observation. With nursing patient scored in the mid 30s for CIWA score. On my exam she did endorse visual hallucinations this morning but has no tongue fasciculations nor tremors no diaphoresis nor hypertension nor tachycardia to suggest withdrawal from benzodiazepines. Furthermore patient has been on a low dose of benzodiazepines which she reportedly last took last week. In the absence of concomitant alcohol use I am not suspicious for benzodiazepine withdrawal. Furthermore I feel that the risk of additional benzodiazepine prescription outweigh the benefits. I talked to Dr. Guadalupe from [facility] with patient has seen Dr. Erazo in the past. Dr. Guadalupe will help to arrange close outpatient follow-up for the patient later this week. I considered seizure however the patient has no signs of any tongue trauma to tongue and denies any loss of bowel or bladder control. Furthermore she does not appear postictal so I did not feel that she required a neurological consultation in the ED. She did endorse visual hallucinations I offered to have her seen by a painter plate. She declined. She was not suicidal nor homicidal. I considered sepsis however the patient did not have vitals consistent with sepsis. I considered intra-abdominal infection however the patient has soft, nontender abdomen with no rebound or guarding so I did not feel that she required an emergent CT scan of her abdomen. Specifically in the absence of right lower quadrant tenderness I was not suspicious for appendicitis. No right upper quadrant tenderness to suggest acute cholecystitis. Patient not alcoholic and has no epigastric tenderness so is not suspicious for pancreatitis and did not send a lipase. Given the patient's age I felt that the risks of ongoing benzodiazepines outweighed the benefits. Given that the patient appears quite well off of benzodiazepines the risks of possible addiction to benzodiazepines outweighed the benefits of further prescribing. Will obtain basic labs treat nausea with ondansetron and reassess. 12:33 PM CBC with mild improved normocytic anemia. No leukocytosis nor thrombocytopenia. 12:47 PM I was called to the patient's room. She was initially nonverbal. She had some facial grimacing. She was able to follow commands squeeze my hands. I offered her something to drink. She responded and said that she wanted to go to the bathroom. This did not appear consistent with a seizure given no postictal state and no tonic clonic activity. I reviewed the [facility] EMR. Patient has had multiple ED encounters at [facility], since February 24. Chart review indicates that she has a history of chronic abdominal pain. Of note patient was on diazepam 5 mg tablets 1 tablet by mouth daily as needed. Patient was in the emergency department at [facility] on March 07, 2025. Patient reportedly has followed with neurology at [facility] and has had negative EEGs during prior episodes of convulsions. She was suspected to have nonepileptic seizures.Comprehensive metabolic panel showing no SHERMAN. No acute LFT abnormalities. No acute electrolyte abnormalities. 1:07 PM I reassessed the patient. She was on her phone in no acute distress. Her heart rates were in the 70s. 1:55 PM Urinalysis nitrite negative, not consistent with UTI. Microscopy showing rare bacteria. Mild hematuria. Reassessed the patient. She was feeling improved. Of note her blood pressure was 89/60 at the time of discharge. This is quite in range with multiple prior episodes of hypotension in the recent past for the patient in the ED. She was not symptomatic given her weight at 56 kg and her age I do not feel that this is an unreasonable blood pressure for her at this time. She is tolerating p.o. and certainly not at risk for ongoing hypotension. In reviewing patient's multiple ED visits in [place] in the recent past she has also had episodes of hypotension with pressures of 92/61. Repeat CIWA score with nursing was 18. Given that these are not primarily based upon subjective components I do not feel that the patient is at risk for withdrawal from benzodiazepines. We discussed that she should return if she developed any fevers chills nausea or vomiting that did not stop. She understood the return indications and was discharged with an empiric trial of expectant outpatient management. HPI This is a patient with a history of seizures presenting with tremors, confusion, and difficulty sleeping. The patient reports experiencing constant tremors, shaking, and confusion. She has been having trouble sleeping for several days and started feeling nauseated, leading to vomiting today. She mentions intermittent headaches and visual hallucinations, such as seeing a black cat that was not present, which she finds very frightening. Additionally, she describes feeling dizzy, weak, and disconnected from her body, as if she is present but not fully aware. Her mood has been unstable, with increased feelings of depression. She stopped taking Valium about a week ago due to running out of the medication and has noticed these symptoms since then. She also reports a burning and poking sensation on her scalp. She does not drink alcohol or use tobacco. Her breathing is generally fine, although she experienced shallow breathing on one or two occasions. She is currently seeking a primary care physician. She is new to this area and currently resides in a group home. She was staying with her mother when the incident occurred. She experienced a seizure this morning, which lasted about 5 minutes, during which she was shaking. She did not bite her tongue or lose control of her bowels or bladder. She has a history of seizures and is currently trying to see a neurologist. Exam General: Well-appearing in no acute distress speaking in complete sentences. Head: Normocephalic, atraumatic. Eye:[Pupils equal, round reactive to light.] Extraocular eye movements intact. No conjunctival injection. No scleral icterus. Ear, nose, mouth, throat: Grossly normal inspection. Normal voice, handling secretions normally. No sign of trauma to the tongue. No tongue fasciculations. Neck: Trachea midline. Cardiovascular: Well-perfused distal extremities. Respiratory: Nonlabored respiration. Gastrointestinal: Nondistended abdomen.Endorses visual but not auditory hallucinations. Denies suicidal ideation. Musculoskeletal: No edema. Moving all 4 extremities spontaneously. Skin: Normal for age and race, grossly normal temperature and turgor. No acute rash.Not diaphoretic. Neurologic: Alert and appropriate, no apparent acute deficits.GCS 15. Cranial nerves II through XII intact grossly. No tremor. Psychiatric: Mood and manner are appropriate. Grooming and personal hygiene are appropriate.Endorses visual but not auditory hallucinations. Denies suicidal ideation. Related Data Home Medications ?Medication ?Instructions ?Recorded ?Confirmed metoclopramide HCl 10 mg tablet 10 mg PO QACHS #90 tabs 03/20/25 04/11/25 ibuprofen 600 mg tablet 600 mg PO Q6H PRN #30 tabs 03/29/25 04/11/25 Previous Rx's ?Medication ?Instructions ?Recorded metoclopramide HCl 10 mg tablet 10 mg PO QACHS #90 tabs 03/20/25 ibuprofen 600 mg tablet 600 mg PO Q6H PRN #30 tabs 03/29/25 Allergies Allergy/AdvReac Type Severity Reaction Status Date / Time haloperidol (From Haldol) Allergy Severe Agitation Verified 04/11/25 11:59 gabapentin AdvReac Intermediate Agitation Verified 04/11/25 11:59 lorazepam (From Ativan) AdvReac Intermediate Agitation Verified 04/11/25 11:59 midazolam (From Versed) AdvReac Intermediate Psychosis Verified 04/11/25 11:59 clonazepam (From Klonopin) AdvReac Unknown unknown Verified 04/11/25 11:59 hydromorphone (From Dilaudid) AdvReac Unknown Unknown Verified 04/11/25 11:59 General Stated Complaint: DrugWithdr/MAT ALONA: 4 Course Vital Signs Vital signs: Vital Signs Temperature 36.8 C 04/11/25 11:16 Pulse 88 04/11/25 11:16 Respiratory Rate 16 04/11/25 11:16 Blood Pressure 130/80 04/11/25 11:16 Pulse Oximetry 96 04/11/25 11:16 Temperature 36.8 C 04/11/25 11:16 Pulse 88 04/11/25 11:16 Respiratory Rate 16 04/11/25 11:16 Blood Pressure 130/80 04/11/25 11:16 Pulse Oximetry 96 04/11/25 11:16 Pain Level 0 04/11/25 11:16 Medical Decision Making Quality:SDOH Health Related Social Needs: Health related social needs inadequate housing risk of homeless food insecurity transpo insecurity house/econ circumstance finding work daily activities lonely/isolated Health related social needs details in [place] where pt was working previously PFSH All Active Problems (Updated 04/11/25 @ 13:58 by Frankie Cunningham MD) History of benzodiazepine use (Acute) Seizure-like activity (Acute) Contusion of hand, right (Acute) Nausea and vomiting (Acute) Abdominal pain (Acute) Leukocytosis (Acute) Anemia (Acute) Seizure-like activity (Acute) Nausea (Acute) Pharyngitis (Acute) Medical History Leukopenia Psychogenic nonepileptic seizure Drug use disorder Abdominal pain Seizure Social History Smoking/Tobacco Use Status: Never Smoking risk assessment performed?: Yes Alcohol Intake: current Alcohol Intake frequency: holidays/special occasions only Drug use: Daily Substance use type: marijuana Housing: homeless Do you feel safe at home: Yes Do you feel safe in your relationship?: Yes
[2025-04-11 12:19] LABS: Abs Immature Grans 0.01 10^3/uL (0.0-0.06); HCT 33.7 % (36.0-46.0); HGB 11.1 g/dL (11.2-15.7); Immature Grans % 0.2 %; MCH 28.6 pg (27.0-33.0); MCHC 32.9 % (32.0-36.0); MCV 87 fL (80-95); MPV 9.5 fL (8.0-11.0); Platelet Count 175 10^3/uL (130-400); RBC 3.88 10^6/uL (3.93-5.22); RDW 13.0 % (11.7-14.6); RDW-SD 40.8 fL; WBC 4.64 10^3/uL (4.4-10.8)
[2025-04-11 12:38] LABS: ALT 13 U/L (14-59); AST 12 U/L (15-37); Albumin 3.6 g/dL (3.4-5.0); Alkaline Phosphatase 51 U/L (46-116); Anion Gap 8.8 mmol/L (3-11); BUN 11 mg/dL (7-18); Bilirubin, Total 0.6 mg/dL (0.2-1.0); CO2 27.2 mmol/L (21.0-32.0); Calcium 8.8 mg/dL (8.5-10.1); Chloride 104 mmol/L (98-107); Estimated GFR 124.55 (mL/min/1.73m2); Glucose 90 mg/dL (74-106); Potassium 4.0 mmol/L (3.5-5.1); Sodium 140 mmol/L (136-145); Total Protein 7.0 g/dL (6.4-8.2)
[2025-04-11] MEDS: Ondansetron 4 MG/2 ML VIAL IVP (12:53)
[2025-04-11] MEDS: Normal Saline 1,000 ML 1000 ML IV (12:53)
[2025-04-11 13:03] LABS: HCG Qual (Serum) Negative
[2025-04-11 13:39] LABS: Glucose Negative (Negative)
[2025-04-11 13:44] LABS: C & S Indicated? No; WBC 0-2 HPF (0-5)
== END 2025-04-11 14:17 | disposition home or self-care (01) ==
PROVIDERS: Emergency Provider Emergency Medicine
DX: R11.0 Nausea (principal); Z59.41 Food insecurity; Z59.82 Transportation insecurity; Z59.811 Housing instability, housed, with risk of homelessness; Z59.89 Other problems related to housing and economic circumstances; Z60.8 Other problems related to social environment; Z87.898 Personal history of other specified conditions
CPT/HCPCS: 36415; 80053; 96361; 96374; 99284; 81003; 81015; 84703; 85025; 99283; J2405

== ENCOUNTER 2025-05-01 23:14 | Emergency (ER) | payer MEDICAID, SELFPAY ==
[2025-05-01] VITALS (8 sets, daily range): BP systolic 109–122; BP diastolic 66–91; PULSE 101–126; RESP 15–27; TEMP 36.9; O2SAT 94–98
--- NOTE | 2025-05-01 23:00 | RT.EKG_ITS ---
APPROVED REPORT Exam: Resting ECG Reason for Exam: overdose Patient Location: E HR:119 bpm ECG Measurements Heart Rate 119 AXIS HI 157 P 75 QRSd 81 QRS 69 QT 307 T 48 QTc 431 Conclusion Sinus tachycardia...rate> 99 Normal [place]/Interval NS ST changes likely rate related
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
[2025-05-01 23:47] LABS: BE (Venous) -4 mmol/L (-2-3); HCO3 (Venous) 22 mmol/L (23-28); O2 Sat (Venous) 86 %; TCO2 (Venous) 21 mmol/L (24-29); pCO2 (Venous) 43 mmHg (41-51); pO2 (Venous) 54 mmHg
[2025-05-01 23:49] LABS: Abs Immature Grans 0.02 10^3/uL (0.0-0.06); HCT 35.1 % (36.0-46.0); HGB 11.5 g/dL (11.2-15.7); Immature Grans % 0.3 %; MCH 28.2 pg (27.0-33.0); MCHC 32.8 % (32.0-36.0); MCV 86 fL (80-95); MPV 9.5 fL (8.0-11.0); Platelet Count 237 10^3/uL (130-400); RBC 4.08 10^6/uL (3.93-5.22); RDW 13.0 % (11.7-14.6); RDW-SD 40.0 fL; WBC 6.85 10^3/uL (4.4-10.8)
[2025-05-02] VITALS (22 sets, daily range): BP systolic 87–138; BP diastolic 50–109; PULSE 62–132; RESP 8–24; O2SAT 93–99
[2025-05-02 00:08] LABS: Magnesium 1.5 mg/dL (1.8-2.4)
[2025-05-02 00:09] LABS: Salicylate < 2.8 mg/dL (<2.8)
[2025-05-02 00:10] LABS: Acetaminophen < 2 ug/mL (10-30)
[2025-05-02 00:12] LABS: ALT 14 U/L (14-59); AST 15 U/L (15-37); Albumin 3.7 g/dL (3.4-5.0); Alkaline Phosphatase 63 U/L (46-116); Anion Gap 12.6 mmol/L (3-11); BUN 12 mg/dL (7-18); Bilirubin, Total 0.6 mg/dL (0.2-1.0); CO2 24.4 mmol/L (21.0-32.0); Calcium 8.4 mg/dL (8.5-10.1); Chloride 103 mmol/L (98-107); Estimated GFR 72.41 (mL/min/1.73m2); Glucose 147 mg/dL (74-106); Potassium 3.2 mmol/L (3.5-5.1); Sodium 140 mmol/L (136-145); Total Protein 6.9 g/dL (6.4-8.2)
[2025-05-02 00:44] LABS: Glucose Negative (Negative)
[2025-05-02] MEDS: diazePAM 2 MG TAB PO (00:44)
[2025-05-02] MEDS: MAGNESIUM SULFATE 2 GM/50 ML BAG IV_INF (00:44)
[2025-05-02 00:53] LABS: RBC Negative HPF (0-2); WBC 0-2 HPF (0-5)
[2025-05-02 01:06] LABS: Cannabinoids THC Positive (Negative); METHADONE URINE SCREEN Positive (Negative)
== END 2025-05-02 02:51 | disposition home or self-care (01) ==
PROVIDERS: Emergency Provider Emergency Medicine
DX: F41.9 Anxiety disorder, unspecified (principal); R11.0 Nausea; E83.42 Hypomagnesemia
CPT/HCPCS: 99284 ×2; 36415; 82962; 36416; 80053; 80307; 82805; 93005; 96365; 96366; 80320; 80329; 81003; 81015; 83735; 85025; 93010; J3475

== ENCOUNTER 2025-05-12 10:53 | Emergency (ER) | payer MEDICAID, SELFPAY ==
[2025-05-12] VITALS (35 sets, daily range): BP systolic 94–125; BP diastolic 50–80; PULSE 55–144; RESP 13–34; TEMP 36.7; O2SAT 85–100
--- NOTE | 2025-05-12 11:00 | DI.CT_ITS ---
Exam(s) CT BRAIN NECK CTA EXAM: CT BRAIN NECK CTA CLINICAL HISTORY: [employer] [place], seizure. TECHNIQUE: Imaging Protocol: Axial CT angiography was performed with multi- slice acquisition and multi-planar and MIP reconstructions. CONTRAST MATERIAL: Intravenous: Omnipaque 350 Contrast volume:70 mL COMPARISON: CT CT HEAD WO from 03/13/2025 FINDINGS: CT Head W/O and W contrast: Ventricles and Extra axial spaces: Normal in size and morphology for the patient's age. Hemorrhage: None. Cerebral parenchyma: No evidence of acute infarct or mass. Midline shift: None. Brainstem/Cerebellum: No acute findings.. Calvarium: Normal. Visualized Paranasal sinuses/Mastoids: Clear. Soft Tissues: Unremarkable. Enhancement: Normal. Venous sinuses are patent. CTA Brain W: Internal Carotid Arteries: Right: No aneurysm, occlusion or significant stenosis. Left: No aneurysm, occlusion or significant stenosis. Middle Cerebral Arteries: Right: No aneurysm, occlusion or significant stenosis. Left: No aneurysm, occlusion or significant stenosis. Anterior Cerebral Arteries: Right: No aneurysm, occlusion or significant stenosis. Left: No aneurysm, occlusion or significant stenosis. Posterior cerebral Arteries: Right: No aneurysm, occlusion or significant stenosis. Left: No aneurysm, occlusion or significant stenosis. Vertebral Arteries: Right: No aneurysm, occlusion or significant stenosis. Left: No aneurysm, occlusion or significant stenosis. Basilar Artery: No aneurysm, occlusion or significant stenosis. CTA Neck W: Visualized aorta: Unremarkable. Visualized pulmonary arteries: Unremarkable. Subclavian arteries: Unremarkable. Common Carotid: Right: No dissection, occlusion or significant stenosis. Left: No dissection, occlusion or significant stenosis. External Carotid: Right: No dissection, occlusion or significant stenosis. Left: No dissection, occlusion or significant stenosis. Internal Carotid: Right: No dissection, occlusion or significant stenosis. Left: No dissection, occlusion or significant stenosis. Vertebral Artery: Right: No dissection, occlusion or significant stenosis. Left: No dissection, occlusion or significant stenosis. Lung Apices: No acute findings. Bones: No acute abnormality. Soft Tissues: Normal. IMPRESSION: 1. CTA brain: Normal CTA examination of the [place]. 2. Head CT: No acute abnormality. 3. CTA neck: No evidence of occlusion, significant stenosis or dissection. RADIATION DOSE DELIVERED: 1,920.21mGy.cm Total DLP DATA REPOSITORY: All CT scans at this facility are submitted to the National Radiology Data Registry (NRDR) Dose Index Registry (DIR) with the [employer] (ACR). RADIATION OPTIMIZATION: All CT scans at this facility use at least one of these dose optimization techniques: automated exposure control; mA and/or kV adjustment per patient size (includes targeted exams where dose is matched to clinical indication); or iterative reconstruction.
[2025-05-12] MEDS: Midazolam 2 MG/2 ML VIAL 5 MG IVP ×2 (11:20→11:45)
[2025-05-12 11:46] LABS: Abs Immature Grans 0.01 10^3/uL (0.0-0.06); HCT 34.7 % (36.0-46.0); HGB 11.3 g/dL (11.2-15.7); Immature Grans % 0.2 %; MCH 27.8 pg (27.0-33.0); MCHC 32.6 % (32.0-36.0); MCV 86 fL (80-95); MPV 9.8 fL (8.0-11.0); Platelet Count 167 10^3/uL (130-400); RBC 4.06 10^6/uL (3.93-5.22); RDW 13.1 % (11.7-14.6); RDW-SD 40.5 fL; WBC 5.64 10^3/uL (4.4-10.8)
[2025-05-12 11:52] LABS: Glucose Negative (Negative)
[2025-05-12 12:00] LABS: ALT 12 U/L (14-59); AST 12 U/L (15-37); Albumin 3.6 g/dL (3.4-5.0); Alkaline Phosphatase 55 U/L (46-116); Anion Gap 9.9 mmol/L (3-11); BUN 12 mg/dL (7-18); Bilirubin, Total 0.4 mg/dL (0.2-1.0); CO2 25.1 mmol/L (21.0-32.0); Calcium 8.8 mg/dL (8.5-10.1); Chloride 105 mmol/L (98-107); Estimated GFR 92.12 (mL/min/1.73m2); Glucose 85 mg/dL (74-106); HCG Qual (Serum) Negative; Magnesium 1.8 mg/dL (1.8-2.4); Potassium 4.1 mmol/L (3.5-5.1); Sodium 140 mmol/L (136-145); Total Protein 7.0 g/dL (6.4-8.2)
[2025-05-12 12:01] LABS: C & S Indicated? No; WBC 0-2 HPF (0-5)
[2025-05-12] MEDS: ACETAMINOPHEN 1,000 MG/100 ML BAG 400 MG IVPB (12:08)
[2025-05-12] MEDS: Normal Saline - Diluent 50 ML VIAL IJ (12:08)
[2025-05-12] MEDS: Omnipaque 350 MG/ML 100 ML BTL IJ (12:09)
--- NOTE | 2025-05-12 12:11 | RESPIRATORY ---
Addendum entered by Nadia Mcintosh 05/12/25 12:20: Approx [id number] checked in on patient to find patient had fallen on floor. MANAGER DEVELOPMENTAL had called for RN and RNs/MD responded to room and patient was lifted back into bed. Pt maintaining airway/oxygenation. This RT went to CT with patient and RN and returned with no complications. Original Note: 05/12/2025 Approx 1055 Responded to ED for seizure patient. Airway supplies, suction, BVM at bedside. Patient placed on ETCO2 monitoring and room air. Patient protecting airway and maintaining oxygenation/ventilation. Checked in with MD before leaving.
[2025-05-12 12:12] LABS: Cannabinoids THC Positive (Negative); METHADONE URINE SCREEN Negative (Negative)
[2025-05-12] MEDS: Lactated Ringers 1,000 ML 1000 ML IV (12:12)
--- NOTE | 2025-05-12 12:16 | ED.GENADUL_ITS ---
Discharge Plan Disposition Patient Disposition: Against Medical Advice Condition: Stable Discharge Details Clinical Impression: Seizure-like activity Primary Care Provider: TamarLocal ED Provider: Suad Churchill Home Meds and New Rx's Prescriptions: No Action diazepam 2 mg tablet 2 mg PO BID Patient Comments: 2 mg orally twice a day; Take one in AM and one at bedtime metoclopramide HCl 10 mg tablet 10 mg PO QACHS Qty: 90 0RF ibuprofen 600 mg tablet 600 mg PO Q6H PRNQty: 30 0RF HPI General Mode of arrival: EMS . Date/Time Provider Initiated Documentation: 05/12/25 11:00 . Limitations to Documentation: no limitations . Information obtained by: patient, EMS and old records reviewed . HPI Narrative: This is a 24-year-old female patient with a past medical history significant for PNES, anemia, anxiety, brought in by EMS for seizure activity. The patient was at her workplace, and had an approximately 5-minute episode of seizure activity. Per EMS, when they arrived the patient appeared postictal, but began to have tonic-clonic activity shortly after they arrived. She received 10 mg of intramuscular Versed, with resolution of the seizure. She reports that she typically takes diazepam for seizure management, recently moved up here and has not had a prescriber who can give her this medication. On arrival at our facility the patient is awake and able to answer questions. She states that prior to the seizure she did experience a severe and sudden headache, which is not typical for her. She reports no other significant changes in her health, no recent illnesses. Related Data Home Medications ?Medication ?Instructions ?Recorded ?Confirmed metoclopramide HCl 10 mg tablet 10 mg PO QACHS #90 tab s 03/20/25 05/12/25 ibuprofen 600 mg tablet 600 mg PO Q6H PRN #30 tabs 0 03/29/25 05/12/25 diazepam 2 mg tablet 2 mg PO BID 05/01/25 5 Previous Rx's ?Medication ?Instructions ?Recorded metoclopramide HCl 10 mg tablet 10 mg PO QACHS #90 tab s 03/20/25 ibuprofen 600 mg tablet 600 mg PO Q6H PRN #30 tabs 0 03/29/25 Allergies Allergy/AdvReac Type Severity Reaction Status Date / Time haloperidol (From Haldol) Allergy Severe Agitation Verified 05/12/25 12:35 gabapentin AdvReac Intermediate Agitation Verified 05/12/25 12:35 lorazepam (From Ativan) AdvReac Intermediate Agitation Verified 05/12/25 12:35 midazolam (From Versed) AdvReac Intermediate Psychosis Verified 05/12/25 12:35 clonazepam (From Klonopin) AdvReac Unknown unknown Verified 05/12/25 12:35 hydromorphone (From Dilaudid) AdvReac Unknown Unknown Verified 05/12/25 12:35 General Stated Complaint: Seizure ALONA: 2 Exam Narrative Exam Narrative: Gen: Awake and alert HEENT: Non-icteric sclera, PERRL at 4 mm, patient endorsing photophobia. EOMs full, tracks appropriately Neck: Supple, full range of motion without meningismus Lungs: No apparent respiratory distress, normal respiratory effort. Lung sounds clear and equal bilaterally without wheezes, rhonchi, rales CV: Appears well perfused, heart with tachycardic rate but regular rhythm, strong distal pulses Abdomen: Non-distended, soft, nontender MSK: Moves 4 extremities without apparent limitation in ROM. No peripheral edema Skin: Visualized skin without rashes, cyanosis. Neuro: No obvious focal deficits or facial asymmetry, follows commands x 4 extremities, denies sensory deficits. Speaks in full, clear sentences. Psych: Appropriate for situation. Course Vital Signs Vital signs: Vital Signs Temperature 36.7 C 05/12/25 10:59 Pulse 106 H 05/12/25 10:59 Respiratory Rate 23 05/12/25 10:59 Blood Pressure 125/62 05/12/25 10:59 Pulse Oximetry 98 05/12/25 10:59 Temperature 36.7 C 05/12/25 10:59 Temperature Source Tympanic 05/12/25 10:59 Pulse 94 H 05/12/25 11:45 Respiratory Rate 17 05/12/25 11:45 Blood Pressure 113/60 05/12/25 11:45 Blood Pressure Position Sitting 05/12/25 10:59 Pulse Oximetry 99 05/12/25 11:45 Oxygen Delivery Method Room Air 05/12/25 11:45 Oxygen Flow Rate 0 05/12/25 11:45 Lab/Test Results Lab/Test Results: Laboratory Tests Range/Units 05/12/25 05/12/25 11:25 11:40 WBC (4.4-10.8) 10^3/uL 5.64 RBC (3.93-5.22) 10^6/uL 4.06 Hgb (11.2-15.7) g/dL 11.3 Hct (36.0-46.0) % 34.7 L MCV (80-95) fL 86 MCH (27.0-33.0) pg 27.8 MCHC (32.0-36.0) % 32.6 RDW (11.7-14.6) % 13.1 Plt Count (130-400) 10^3/uL 167 MPV (8.0-11.0) fL 9.8 Immature Gran % % 0.2 Neutrophils % % 66.0 Lymphocytes % % 27.0 Monocytes % % 5.9 Eosinophils % % 0.7 Basophils % % 0.2 Nucleated RBC % (0.0-0.3) % 0.0 Absolute Neutrophils (1.2-6.7) 10^3/uL 3.73 Absolute Lymphocytes (1.2-3.4) 10^3/uL 1.52 Absolute Monocytes (0.1-0.8) 10^3/uL 0.33 Absolute Eosinophils (0.0-0.7) 10^3/uL 0.04 Absolute Basophils (0.0-0.2) 10^3/uL 0.01 VBG Lactate (<or=2.0) mmol/L 2.8 H* Sodium (136-145) mmol/L 140 Potassium (3.5-5.1) mmol/L 4.1 Chloride (98-107) mmol/L 105 Carbon Dioxide (21.0-32.0) mmol/L 25.1 Anion Gap (3-11) mmol/L 9.9 BUN (7-18) mg/dL 12 Creatinine (0.55-1.02) mg/dL 0.9 Est GFR (CKD-EPI 2020) (mL/min/1.73m2) 92.12 Glucose (74-106) mg/dL 85 Calcium (8.5-10.1) mg/dL 8.8 Magnesium (1.8-2.4) mg/dL 1.8 Total Bilirubin (0.2-1.0) mg/dL 0.4 AST (15-37) U/L 12 L ALT (14-59) U/L 12 L Alkaline Phosphatase (46-116) U/L 55 Total Protein (6.4-8.2) g/dL 7.0 Albumin (3.4-5.0) g/dL 3.6 Serum HCG, Qual Negative Urine Color (Yellow) Yellow Urine Clarity (Clear) Sl Cloudy Urine pH (5-8) 5.5 Ur Specific [place] (1.005-1.025) >= 1.030 H Urine Protein (Neg-Trace) mg/dL Negative Urine Ketones (Negative) mg/dL Trace H Urine Blood (Negative) Trace-intact H Urine Nitrite (Negative) Negative Urine Bilirubin (Negative) Negative Urine Urobilinogen (Up to 0.2) mg/dL 0.2 Ur Leukocyte Esterase (Negative) Negative Urine RBC (0-2) HPF 5-10 H Urine WBC (0-5) HPF 0-2 Ur Epithelial Cells (Negative) HPF Moderate Urine Crystals (Negative) HPF Negative Urine Bacteria (Negative) HPF Few Urine Casts (Negative) LPF Negative Urine Mucus (Negative) Trace Ur Culture Indicated? No Urine Glucose (Negative) mg/dL Negative Urine Opiates Screen (Negative) Negative Urine Methadone Screen (Negative) Negative Ur Barbiturates Screen (Negative) Negative Ur Tricyclics Screen (Negative) Negative Ur Amphetamines Screen (Negative) Negative U Benzodiazepines Scrn (Negative) Positive A Urine Cocaine Screen (Negative) Negative Ur THC Screen (Negative) Positive A POC- Test(urine) Negative Medical Decision Making This is a 24-year-old female patient presenting for evaluation after seizure- like activity. Differential includes but is not limited to seizure, PNES episode, certainly considered benzodiazepine withdrawal given the patient's history of chronic benzodiazepine use and recent loss of that prescription. Considered metabolic and electrolyte derangement, especially hypoglycemia and hyponatremia. Considered intracranial abnormalities including subarachnoid hemorrhage, dissection/aneurysm, mass effect. No neurodeficits to significantly increase my concern for stroke. We will obtain a CT of the brain and neck to evaluate for intracranial pathology, and obtain labs to include CBC, CMP, magnesium, lactate, beta hCG, and urinalysis with UDS. The patient did have an episode of tonic-clonic seizure activity shortly after arrival to the hospital, received 5 mg of Versed IV to good effect, did have a rather rapid return to awareness and was able to answer questions, denies recollection of the event. Will load the patient with Keppra, 60 mg/kg. - While attempting to provide a urine sample, the patient experienced another episode of tonic-clonic seizure activity, and fell to the ground. Her head was protected by the staff member who was with her. Received a second dose of IV Versed. - I independently interpreted the laboratory studies, which show no significant leukocytosis, anemia, or thrombocytopenia. The chemistry panel is without evidence of electrolyte abnormality, kidney dysfunction, or liver injury. Lactate slightly elevated at 2.8, will provide her with IV fluids. The patient endorsing a headache for which she will receive Tylenol. Serum hCG was negative, urinalysis noninfectious, though she does have trace blood. UDS positive for THC and benzodiazepines (given by EMS). CTA of the brain and neck reviewed and read as normal by radiology. Teleneurology was consulted and evaluated the patient. He feels that these episodes are most likely development representative of PNES, but given the significant increase in frequency the patient would benefit from transfer to an EEG capable facility. I did discuss this case with Dr. Heredia, who after discussion with the teleneurologist feel that this patient does not require inpatient EEG nor transfer given the significant concern for PNES rather than epileptic seizures. I attempted to reach out to the neurology team at [facility] where the patient is establishing care, as I am unable to have EEG performed in this facility over t he weekend. Unfortunately, while attempting to complete this coordination of care, the patient states that she will not be waiting in the ED any longer, pulled out her IV and left this hospital AGAINST MEDICAL ADVICE. I was able to have an AMA discussion with her, but she refused to sign the paperwork, her coworker was present and witnessed the discussion and provided a signature that it had occurred. This was witnessed by her nurse as well. The patient left our facility after this discussion, did not stay for any printed paperwork. We were able to provide a new contact number to [facility] and I hope that she will be able to follow-up with them in a timely fashion. She was also informed that she could always return to care for reevaluation if she had recurrence of her symptoms. Suad Churchill MD Quality:SDOH Health Related Social Needs: Health related social needs inadequate housing risk of homeless food insecurity transpo insecurity house/econ circumstance finding work daily activities lonely/isolated Health related social needs details in [place] w here pt was working previously [facility] All Active Problems (Updated 05/12/25 @ 15:26 by Suad Churchill MD) Hypomagnesemia (Acute) Anxiety (Chronic) Leukopenia (Acute) Leukocytosis (Acute) Anemia (Acute) Seizure-like activity (Acute) Nausea (Acute) Medical History (Updated 05/12/25 @ 15:26 by Suad Churchill MD) POTS (postural orthostatic tachycardia syndrome) ISAÍAS (generalized anxiety disorder) PTSD (post-traumatic stress disorder) OCD (obsessive compulsive disorder) Psychogenic nonepileptic seizure Social History Smoking/Tobacco Use Status: Never Smoking risk assessment performed?: Yes Alcohol Intake: current Alcohol Intake frequency: holidays/special occasions only Drug use: Daily Substance use type: marijuana Housing: homeless Do you feel safe at home: Yes Do you feel safe in your relationship?: Yes
--- NOTE | 2025-05-12 12:17 | NUR.NOTE ---
Jose pt nurse asked me to help pt use bedside commode to get Ua, Patient got up okay to use bedside comode provides ua, when pt got up she fell, I called for help, pt was assistied back up to bed.Nursing Note:
== END 2025-05-12 15:20 | disposition left against medical advice (07) ==
PROVIDERS: Emergency Provider Emergency Medicine
DX: R56.9 Unspecified convulsions (principal); Z53.29 Procedure and treatment not carried out because of patient's decision for other reasons; Z59.10 Inadequate housing, unspecified; Z59.811 Housing instability, housed, with risk of homelessness; Z59.41 Food insecurity; Z59.82 Transportation insecurity; Z59.89 Other problems related to housing and economic circumstances; Z60.8 Other problems related to social environment; Z73.9 Problem related to life management difficulty, unspecified
CPT/HCPCS: 36416; 70496; 70498; 80053; 80307; 81025; 82962; 96361; 96365; 96375; 99285; 81003; 81015; 83605; 83735; 84703; 85025; 99284; J0131; J1953; J2250; J3490

== ENCOUNTER 2025-05-13 22:31 | Emergency (ER) | payer MEDICAID, SELFPAY ==
[2025-05-13] VITALS (15 sets, daily range): BP systolic 81–103; BP diastolic 42–62; PULSE 57–122; RESP 15–21; TEMP 36.9; O2SAT 94–100
--- NOTE | 2025-05-13 22:15 | RT.EKG_ITS ---
APPROVED REPORT Exam: Resting ECG Reason for Exam: Seizure Patient Location: E HR:105 bpm ECG Measurements Heart Rate 105 AXIS HI 161 P 61 QRSd 80 QRS 75 QT 333 T 52 QTc 439 Conclusion Sinus tachycardia...rate> 99 Probable left atrial enlargement...P >50mS, <-0.10mV V1 no ST segment or T wave abnormalities to suggest occlusive NE
--- NOTE | 2025-05-13 22:28 | ED.GENADUL_ITS ---
Discharge Plan Disposition Patient Disposition: Home Condition: Good Discharge Details Clinical Impression: Witnessed seizure-like activity [facility]: Amita Willson Home Meds and New Rx's Prescriptions: New levetiracetam [Keppra] 500 mg tablet 500 mg PO BID Qty: 60 0RF Continued metoclopramide HCl 10 mg tablet 10 mg PO QACHS Qty: 90 0RF ibuprofen 600 mg tablet 600 mg PO Q6H PRNQty: 30 0RF Discontinued diazepam 2 mg tablet 2 mg PO BID Patient Comments: 2 mg orally twice a day; Take one in AM and one at bedtime Discharge Instructions Instructions: Seizures, Adult ED Additional Instructions: -Start taking 500mg of Keppra twice a day for seizures. -Do not drive, swim, take baths, operate machinery, or engage in any activity during which losing consciousnesses could result in injury or to yourself of others until cleared by neurology or your PCP. Do not use alcohol or recreational drugs. -You will need to followup with neurology to get an EEG, MRI, and to manage your medications. A referral was sent to [facility] yesterday; please call them at [phone] on Thursday morning to schedule an appointment for as soon as possible. -Call your primary care doctor in the morning to schedule an appointment for within the next 72 hours to followup on your visit here. At that visit discuss your seizures and your potassium and magnesium which were low here today. You may need to have these levels rechecked. Electrolyte abnormalities such as these can lead to seizures, cardiac arrhythmias, or . -Return to the emergency department for new or worsening symptoms, including if you have another seizure, develop any of the symptoms listed on your discharge paperwork, or if you have any other concerns. Stand Alone Forms: Work Release HPI General Mode of arrival: EMS . Date/Time Provider Initiated Documentation: 05/13/25 22:44 . Limitations to Documentation: no limitations . Information obtained by: patient, EMS and old records reviewed (ED visit note yesterday) . 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 Was at work this evening when around 2145 began to have tonic-clonic motions for about 5 minutes, per EMS was post-ictal on arrival and then began to have seizure like activity again for about 3 minutes for which she was given 10mg IM Versed and again appeared post ictal. Did not fall or strike her head. She again developed seizure like activity just prior to arrival, ongoing while being wheeled into the ED. Similar presentation yesterday (see that note for details); seizure like activity at work and appeared post-ictal for EMS and then more seizure like activity, given 10mg of IM Versed. Alert and oriented on arrival to the ED though had another episode of seizure like activity for which she recieved 5mg IV Versed and was loaded with keppra. Workup with reassuring labs and head CT; saw teleneurology with sergey for outpatient EEG with referral sent to [place]. Today after sternal rub on arrival, alert and oriented x 3, reports nausea and fatigue. Denies any other symptoms currently including no headache, numbness, weakness, vertigo, or vision changes. States she takes valium for seizures but has not had it for several months; no other seizure medications. States no one will prescribe me anything for my seizures they just send me to mental health. She was in her usual state of health today before this event with no fevers, chills, rash, nausea, vomiting, abodminal pain, chest pain, shortness of breath, dysuria, hematuria, or other concerns. Related Data Home Medications ?Medication ?Instructions ?Recorded ?Confirmed metoclopramide HCl 10 mg tablet 10 mg PO QACHS #90 tab s 03/20/25 05/13/25 ibuprofen 600 mg tablet 600 mg PO Q6H PRN #30 tabs 0 03/29/25 05/13/25 levetiracetam 500 mg tablet 500 mg PO BID #60 tabs (Keppra) Previous Rx's ?Medication ?Instructions ?Recorded metoclopramide HCl 10 mg tablet 10 mg PO QACHS #90 tab s 03/20/25 ibuprofen 600 mg tablet 600 mg PO Q6H PRN #30 tabs 0 03/29/25 levetiracetam 500 mg tablet 500 mg PO BID #60 tabs (Keppra) Allergies Allergy/AdvReac Type Severity Reaction Status Date / Time haloperidol (From Haldol) Allergy Severe Agitation Verified 05/13/25 23:40 gabapentin AdvReac Intermediate Agitation Verified 05/13/25 23:40 lorazepam (From Ativan) AdvReac Intermediate Agitation Verified 05/13/25 23:40 midazolam (From Versed) AdvReac Intermediate Psychosis Verified 05/13/25 23:40 clonazepam (From Klonopin) AdvReac Unknown unknown Verified 05/13/25 23:40 hydromorphone (From Dilaudid) AdvReac Unknown Unknown Verified 05/13/25 23:40 General ALONA: 2 Review of Systems Narrative: see HPI Exam Narrative Exam Narrative: General: Alert, well appearing, well nourished, in no acute distress. Head: Normocephalic, atraumatic Neck: Trachea midline, ?Neck supple. ENT: ?MMM.? No oropharygeal lesions or exudate. Cardiac: ?RRR, no murmurs appreciated Resp: No respiratory distress. CTAB. Abd: ?Soft, non-distended, nontender : ?No suprapubic tenderness. No CVA tenderness. Extremities: ?No deformities.? No peripheral edema. Neuro: ? GCS 15.? PERRL.? EOMI.? Fluent speech, no dysarthria. Motor- 5/5 strength symmetric bilateral upper and lower extrmeties including shoulder abductors/adductors, elbow flexors/extensors, wrist flexors/extensors, finger abductors/adductors, hipflexors/extensors, knee flexors/extensors, ankle dorsiflexors and planter flexors. Sensation- ?Intact to light touch and symmetric multiple dermatomes including upper and lower extrmeities Coordination- No dysmetria on finger to nose Reflexes- 2/4 achilles & patellar, no clonus Gait/station: ?Normal stance.? No truncal ataxia. Steady gait with equal normal steps CRANIAL NERVES: II: Pupils equal and reactive, III, IV, : EOM intact, no gaze preference or deviation, no nystagmus. V: normal sensation in V1, V2, and V3 segments bilaterally VII: no asymmetry, no nasolabial fold flattening VIII: normal hearing to speech IX, X: normal palatal elevation, no uvular deviation XI: 5/5 head turn and 5/5 shoulder shrug bilaterally XII: midline tongue protrusion Medical Decision Making 24yo F with hx PNES, anemia, presenting via EMS for seizure like activity; received 10mg IM Versed prior to arrival. Alert and oriented on arrival to the ED though had another episode of seizure like activity for which she received 5mg IV Versed and was loaded with keppra. Workup at that visit with reassuring labs and head CT; saw teleneurology with plain for outpatient EEG with referral sent to [place]. Tachycardiac to 120's on arrival (rapidly improved to low 100's without intervention) with borderline hypotension 96/42 in the setting of recent IM versed. She arrives with mild whole-body tonic clonic activity and eyes closed; sternal rubbed and became responsive, alert, not post-ictal. Normal neurologic exam. Will give 1L IVFB and 4mg IV zofran for symptoms. Plan for EKG, labs, UA; with normal head CT yesterday and no head injury today will not repeat at this time. Will hold off on keppra or other anti-epileptics pending teleneuro consult; my exam and ED provider exam yesterday are more suggestive of PNES rather than epileptic seizures however EMS has reported that she did seem post- ictal to them on their evaluation. Based on whole of provided history and my exam, I think it is unlikely that she has been in status. -EKG sinus tachcyardia to 100's, appropriate intervals, no ST segment or T wave abnormalities to suggest occlusive MA. -Labs reviewed as below, CBC reassuring with no leukocytosis or anemia, CMP with borderline hypokalemia at 3.4 (oral replacement ordered), Mg slightly low at 1.7 (oral replacement ordered), VBG with slight metabolic acidosis with respiratory compensation, lactate markedly elevated at 8.6 (explains VBG and elevated anion gap) , negative, UA not infected. -HR improved 70's-80's, BP good after fluids. Repeat lactate normalized. -Despite seemingly most consistent with PNES here, cannot disregard EMS report as well as elevated lactate; will get repeat teleneurology consult today. Teleneurology evaluated patient (see their note for details) and discussed with me; also feel this is not status, concerned for PNES vs epileptic seizures or combination of the two. Advised outpatient neurology referral for EEG and MRI (this was sent to [facility] yesterday) as well as 1000mg IV keppra load and starting 500mg keppra PO BID. Hospitalization/transfer for further workup not indicated at this time. On reassessment patient awake, alert, normal neurologic exam, reassuring vital signs, requests discharge home which is reasonable. Discharge instructions including the importance of outpatient followup and adhering to seizure precautions was reviewed with patient who verbalized understanding. All qeustio ns were answered and she is in full agreement with the plan. Lab Data Lab results reviewed: Yes I reviewed the patient's lab results. Labs: Laboratory Tests Range/Units 05/13/25 05/13/25 05/14/25 22:31 23:36 00:12 WBC (4.4-10.8) 10^3/uL 6.04 RBC (3.93-5.22) 10^6/uL 4.09 Hgb (11.2-15.7) g/dL 11.3 Hct (36.0-46.0) % 35.4 L MCV (80-95) fL 87 MCH (27.0-33.0) pg 27.6 MCHC (32.0-36.0) % 31.9 L RDW (11.7-14.6) % 13.2 Plt Count (130-400) 10^3/uL 174 MPV (8.0-11.0) fL 9.9 Immature Gran % % 0.2 Neutrophils % % 47.0 Lymphocytes % % 43.4 Monocytes % % 7.8 Eosinophils % % 1.3 Basophils % % 0.3 Nucleated RBC % (0.0-0.3) % 0.0 Absolute Neutrophils (1.2-6.7) 10^3/uL 2.84 Absolute Lymphocytes (1.2-3.4) 10^3/uL 2.62 Absolute Monocytes (0.1-0.8) 10^3/uL 0.47 Absolute Eosinophils (0.0-0.7) 10^3/uL 0.08 Absolute Basophils (0.0-0.2) 10^3/uL 0.02 VBG pH (7.31-7.41) 7.32 VBG pCO2 (41-51) mmHg 34 L VBG pO2 mmHg 94 VBG HCO3 (23-28) mmol/L 18 L VBG Total CO2 (24-29) mmol/L 16 L VBG O2 Saturation % 98 VBG Base Excess (-2-3) mmol/L -9 L VBG Lactate (<or=2.0) mmol/L 8.6 H* 1.3 Sodium (136-145) mmol/L 142 Potassium (3.5-5.1) mmol/L 3.4 L Chloride (98-107) mmol/L 105 Carbon Dioxide (21.0-32.0) mmol/L 18.4 L Anion Gap (3-11) mmol/L 18.6 H BUN (7-18) mg/dL 12 Creatinine (0.55-1.02) mg/dL 1.0 Est GFR (CKD-EPI 2020) (mL/min/1.73m2) 81.18 Glucose (74-106) mg/dL 77 Calcium (8.5-10.1) mg/dL 8.4 L Magnesium (1.8-2.4) mg/dL 1.7 L Total Bilirubin (0.2-1.0) mg/dL 0.3 AST (15-37) U/L 19 ALT (14-59) U/L 13 L Alkaline Phosphatase (46-116) U/L 55 Total Protein (6.4-8.2) g/dL 6.9 Albumin (3.4-5.0) g/dL 3.6 Urine Color (Yellow) Yellow Urine Clarity (Clear) Clear Urine pH (5-8) 6.0 Ur Specific Karthaus (1.005-1.025) >= 1.030 H Urine Protein (Neg-Trace) mg/dL Negative Urine Ketones (Negative) mg/dL Negative Urine Blood (Negative) Trace-intact H Urine Nitrite (Negative) Negative Urine Bilirubin (Negative) Negative Urine Urobilinogen (Up to 0.2) mg/dL 0.2 Ur Leukocyte Esterase (Negative) Negative Urine RBC (0-2) HPF 3-5 H Urine WBC (0-5) HPF Negative Ur Epithelial Cells (Negative) HPF Rare Urine Crystals (Negative) HPF Negative Urine Bacteria (Negative) HPF Rare Urine Casts (Negative) LPF Negative Urine Mucus (Negative) Trace Ur Culture Indicated? No Urine Glucose (Negative) mg/dL Negative Quality:SDOH Health Related Social Needs: Health related social needs inadequate housing risk of homeless food insecurity transpo insecurity house/econ circumstance finding work daily activities lonely/isolated Health related social needs details in [place] w here pt was working previously [employer] All Active Problems (Updated 05/14/25 @ 00:36 by Amita Willson MD) Witnessed seizure-like activity (Acute) Hypomagnesemia (Acute) Anxiety (Chronic) Leukopenia (Acute) Leukocytosis (Acute) Anemia (Acute) Seizure-like activity (Acute) Nausea (Acute) Medical History (Updated 05/14/25 @ 00:36 by Amita Willson MD) POTS (postural orthostatic tachycardia syndrome) ISAÍAS (generalized anxiety disorder) PTSD (post-traumatic stress disorder) OCD (obsessive compulsive disorder) Psychogenic nonepileptic seizure Social History Smoking/Tobacco Use Status: Never Smoking risk assessment performed?: Yes Alcohol Intake: current Alcohol Intake frequency: holidays/special occasions only Drug use: Daily Substance use type: marijuana Housing: homeless Do you feel safe at home: Yes Do you feel safe in your relationship?: Yes
[2025-05-13 22:40] LABS: BE (Venous) -9 mmol/L (-2-3); HCO3 (Venous) 18 mmol/L (23-28); O2 Sat (Venous) 98 %; TCO2 (Venous) 16 mmol/L (24-29); pCO2 (Venous) 34 mmHg (41-51); pO2 (Venous) 94 mmHg
[2025-05-13] MEDS: Normal Saline 1,000 ML 1000 ML IV ×2 (22:40→23:16)
[2025-05-13 22:41] LABS: Abs Immature Grans 0.01 10^3/uL (0.0-0.06); HCT 35.4 % (36.0-46.0); HGB 11.3 g/dL (11.2-15.7); Immature Grans % 0.2 %; MCH 27.6 pg (27.0-33.0); MCHC 31.9 % (32.0-36.0); MCV 87 fL (80-95); MPV 9.9 fL (8.0-11.0); Platelet Count 174 10^3/uL (130-400); RBC 4.09 10^6/uL (3.93-5.22); RDW 13.2 % (11.7-14.6); RDW-SD 41.9 fL; WBC 6.04 10^3/uL (4.4-10.8)
[2025-05-13] MEDS: Ondansetron 4 MG/2 ML VIAL (22:50)
[2025-05-13 22:59] LABS: ALT 13 U/L (14-59); AST 19 U/L (15-37); Albumin 3.6 g/dL (3.4-5.0); Alkaline Phosphatase 55 U/L (46-116); Anion Gap 18.6 mmol/L (3-11); BUN 12 mg/dL (7-18); Bilirubin, Total 0.3 mg/dL (0.2-1.0); CO2 18.4 mmol/L (21.0-32.0); Calcium 8.4 mg/dL (8.5-10.1); Chloride 105 mmol/L (98-107); Estimated GFR 81.18 (mL/min/1.73m2); Glucose 77 mg/dL (74-106); Magnesium 1.7 mg/dL (1.8-2.4); Potassium 3.4 mmol/L (3.5-5.1); Sodium 142 mmol/L (136-145); Total Protein 6.9 g/dL (6.4-8.2)
[2025-05-14] VITALS (10 sets, daily range): BP systolic 94–107; BP diastolic 51–66; PULSE 66–106; RESP 12–22; O2SAT 97–100
[2025-05-14] MEDS: levETIRAcetam 1,000 MG in Normal Saline 100 ML 400 MG IVPB
[2025-05-14 00:21] LABS: Glucose Negative (Negative)
[2025-05-14 00:25] LABS: WBC Negative HPF (0-5)
[2025-05-14 00:26] LABS: C & S Indicated? No
[2025-05-14] MEDS: levETIRAcetam 500 MG TAB 2000 MG PO (00:49)
[2025-05-14] MEDS: Potassium Chloride 20 MEQ TABCR PO (00:55)
[2025-05-14] MEDS: Magnesium Gluconate 500 MG TAB 1000 MG PO (00:55)
== END 2025-05-14 01:26 | disposition home or self-care (01) ==
PROVIDERS: Emergency Provider Student in an Organized Health Care Education/Training Program
DX: R56.9 Unspecified convulsions (principal)
CPT/HCPCS: 99284 ×2; 36415; 81025; 80053; 82805; 93005; 96361; 96365; 81003; 81015; 83605; 83735; 85025; 93010; J1953; J2405

== ENCOUNTER 2025-05-18 12:07 | Emergency (ER) | payer MEDICAID, SELFPAY ==
[2025-05-18 12:26] VITALS: BP 114/78; PULSE 98; RESP 20; TEMP 37.3; O2SAT 99
--- NOTE | 2025-05-18 12:39 | W.ED.GENAD ---
Discharge Plan Disposition Patient Disposition: Home Discharge Details Clinical Impression: Follow-up exam Primary Care Provider: Glenn Roy ED Provider: Frankie Cunningham Home Meds and New Rx's Prescriptions: Continued metoprolol succinate 25 mg tablet extended release 24 hr 25 mg PO DAILY Qty: 90 1RF albuterol sulfate [Ventolin HFA] 90 mcg/actuation HFA aerosol inhaler 2 puff inhalation Q6H PRN (Reason: shortness of breath or wheezing) Qty: 8.5 0RF levetiracetam [Keppra] 500 mg tablet 500 mg PO BID Qty: 60 0RF Discharge Instructions Additional Instructions: Patient seen in the emergency department for follow-up. She is cleared to return to work. If she has any concerns she may return to the emergency department. I have spoken with a imaging account manager at [facility] for [facility]. They will accept this note and allow you to return to work. Stand Alone Forms: Work Release HPI General Date/Time Provider Initiated Documentation: 05/18/25 12:39. HPI Narrative: MDM This is an overall quite well-appearing normothermic and not tachycardic 24-year-old female with no acute medical complaints here for a work release. Chart review indicates patient has a history of POTS and seizure-like activity. Patient was seen in the emergency department on 05/12/2025. She had a 5-minute episode of seizure activity. She had a CT scan performed of her head. She had a normal CT angiogram. Neurology was consulted at patient's visit last week. Neurology felt that episodes were [employer] service of PNES. Neurology nonetheless recommended EEG be performed. Neurology did not feel that the patient required inpatient EEG. Patient ultimately signed out AGAINST MEDICAL ADVICE. She subsequently was back in the emergency department and then discharged. Patient works in housekeeping. With her permission I called [facility]. I advised that patient was cleared for working. I advised patient to return to the emergency department if she had any other concerns. HPI This is a patient presenting for a work note. The patient is accompanied by her mother. She is employed at [employer] and requires a work note to resume her duties. Her imaging account manager provided her with specific forms last Thursday, which she has been attempting to complete over the past few days. However, she was informed that these forms were not initially available, a claim she disputes. She is unable to return to work until these forms are completed, as per her employer's protocol. Despite her efforts to contact her workplace to request a reissue of the forms, she has received no response. She has previously attempted to use a doctor's note to return to work, but her employer insists on their own specific paperwork. Exam General: Well-appearing in no acute distress speaking in complete sentences. Head: Normocephalic, atraumatic. Eye: Extraocular eye movements intact. No conjunctival injection. No scleral icterus. Ear, nose, mouth, throat: Grossly normal inspection. Normal voice, handling secretions normally. Neck: Trachea midline. Cardiovascular: Well-perfused distal extremities. Respiratory: Nonlabored respiration. Gastrointestinal: Nondistended abdomen. Musculoskeletal: No edema. Moving all 4 extremities spontaneously. Skin: Normal for age and race, grossly normal temperature and turgor. No acute rash. Neurologic: Alert and appropriate, no apparent acute deficits. Related Data Home Medications ?Medication ?Instructions ?Recorded ?Confirmed levetiracetam 500 mg tablet 500 mg PO BID #60 tabs 05/13/25 05/18/25 (Keppra) albuterol sulfate 90 mcg/actuation 2 puff inhalation Q6H PRN 05/16/25 05/18/25 aerosol inhaler (Ventolin HFA) shortness of breath or wheezing #8.5 grams metoprolol succinate 25 mg 25 mg PO DAILY #90 tabs 05/16/25 05/18/25 tablet,extended release 24 hr Previous Rx's ?Medication ?Instructions ?Recorded levetiracetam 500 mg tablet 500 mg PO BID #60 tabs 05/13/25 (Keppra) albuterol sulfate 90 mcg/actuation 2 puff inhalation Q6H PRN 05/16/25 aerosol inhaler (Ventolin HFA) shortness of breath or wheezing #8.5 grams metoprolol succinate 25 mg 25 mg PO DAILY #90 tabs 05/16/25 tablet,extended release 24 hr Allergies Allergy/AdvReac Type Severity Reaction Status Date / Time haloperidol (From Haldol) Allergy Severe Agitation Verified 05/18/25 12:32 prochlorperazine (From AdvReac Severe Anaphylaxis Verified 05/18/25 12:32 Compazine) gabapentin AdvReac Intermediate Agitation Verified 05/18/25 12:32 lorazepam (From Ativan) AdvReac Intermediate Agitation Verified 05/18/25 12:32 midazolam (From Versed) AdvReac Intermediate Psychosis Verified 05/18/25 12:32 clonazepam (From Klonopin) AdvReac Unknown unknown Verified 05/18/25 12:32 hydromorphone (From Dilaudid) AdvReac Unknown Unknown Verified 05/18/25 12:32 General Stated Complaint: Seizure ALONA: 3 Course Vital Signs Vital signs: Vital Signs Temperature 37.3 C 05/18/25 12:26 Pulse 98 H 05/18/25 12:26 Respiratory Rate 20 05/18/25 12:26 Blood Pressure 114/78 05/18/25 12:26 Pulse Oximetry 99 05/18/25 12:26 Temperature 37.3 C 05/18/25 12:26 Pulse 98 H 05/18/25 12:26 Respiratory Rate 20 05/18/25 12:26 Blood Pressure 114/78 05/18/25 12:26 Blood Pressure Position Sitting 05/18/25 12:26 Pulse Oximetry 99 05/18/25 12:26 Oxygen Delivery Method Room Air 05/18/25 12:26 Oxygen Flow Rate 0 05/18/25 12:26 Medical Decision Making Quality:SDOH Health Related Social Needs: Health related social needs inadequate housing risk of homeless food insecurity transpo insecurity house/econ circumstance finding work daily activities lonely/isolated Health related social needs details in [place] where pt was working previously [facility] All Active Problems (Updated 05/18/25 @ 12:53 by Frankie Cunningham MD) Follow-up exam (Acute) POTS (postural orthostatic tachycardia syndrome) (Acute) Witnessed seizure-like activity (Acute) Hypomagnesemia (Acute) Anxiety (Chronic) Leukopenia (Acute) Leukocytosis (Acute) Anemia (Acute) Seizure-like activity (Acute) Nausea (Acute) Medical History (Updated 05/18/25 @ 12:53 by Frankie Cunningham MD) ISAÍAS (generalized anxiety disorder) PTSD (post-traumatic stress disorder) OCD (obsessive compulsive disorder) Psychogenic nonepileptic seizure Social History Smoking/Tobacco Use Status: Never Smoking risk assessment performed?: Yes Alcohol Intake: current Alcohol Intake frequency: holidays/special occasions only Drug use: Daily Substance use type: marijuana Housing: homeless Do you feel safe at home: Yes Do you feel safe in your relationship?: Yes
== END 2025-05-18 13:18 | disposition home or self-care (01) ==
PROVIDERS: Emergency Provider Emergency Medicine; PCP Family Medicine
DX: G40.909 Epilepsy, unspecified, not intractable, without status epilepticus (principal); G90.A Postural orthostatic tachycardia syndrome [POTS]
CPT/HCPCS: 99282

== ENCOUNTER 2025-05-21 21:01 | Emergency (ER) | payer MEDICAID, SELFPAY ==
--- NOTE | 2025-05-21 21:00 | DI.CT_ITS ---
Exam(s) CT ABDOMEN PELVIS W EXAM: CT ABDOMEN PELVIS W CLINICAL HISTORY: RLQ pain with poor appetite, diarrhea TECHNIQUE: Imaging Protocol: Axial computed tomography images with coronal and sagittal reformatted images were created and reviewed. CONTRAST MATERIAL: Intravenous: Omnipaque 350 Contrast volume:75 mL Oral: No COMPARISON: CT CT ABDOMEN PELVIS W from 03/14/2025 FINDINGS: ABDOMEN: Lung Bases: No acute abnormality. Liver: Normal density. No measurable mass. Portal, Superior Mesenteric, and Splenic Veins: Unremarkable. Gallbladder and Biliary Tract: No radiodense calculus or dilation. Pancreas: Normal density, no abnormal calcifications or inflammatory process. Spleen: Normal. Adrenals: No masses seen. Kidneys: Normal size, contour and axis. No radiodense stones or obstructive uropathy. No masses seen. Abdominal Aorta: Abdominal portion non-dilated. Bowel: No obstruction or bowel wall thickening. The appendix appears unremarkable. Peritoneal Cavity: There is a trace amount of fluid in the cul-de-sac which is likely physiologic. No free air. Lymph Nodes: Within normal limits. Bones: Within normal limits for the patient's age. Soft Tissues: There is a small fat containing umbilical hernia. PELVIS: Bladder: Symmetric distention, no gross wall thickening. Reproductive Organs: There is a 3.5 x 3 cm simple left ovarian cyst. Lymph Nodes: Within normal limits. Bones: Within normal limits for the patient's age. IMPRESSION: 1. No acute abdominal or pelvic process. 2. There is a 3.5 x 3 cm simple left ovarian cyst which is likely physiologic. 3. There is a normal appendix present. 4. The preliminary [facility] report was reviewed. RADIATION DOSE DELIVERED: 279.46mGy.cm Total DLP DATA REPOSITORY: All CT scans at this facility are submitted to the National Radiology Data Registry (NRDR) Dose Index Registry (DIR) with the [employer] (A[employer]). RADIATION OPTIMIZATION: All CT scans at this facility use at least one of these dose optimization techniques: automated exposure control; mA and/or kV adjustment per patient size (includes targeted exams where dose is matched to clinical indication); or iterative reconstruction.
[2025-05-21 21:01] VITALS: BP 106/82; PULSE 74; RESP 18; TEMP 36.8; O2SAT 99
[2025-05-21 21:16] VITALS: BP 106/82; PULSE 74; RESP 18; TEMP 36.8; O2SAT 99
[2025-05-21 21:22] LABS: Abs Immature Grans 0.01 10^3/uL (0.0-0.06); HCT 36.0 % (36.0-46.0); HGB 11.8 g/dL (11.2-15.7); Immature Grans % 0.2 %; MCH 28.3 pg (27.0-33.0); MCHC 32.8 % (32.0-36.0); MCV 86 fL (80-95); MPV 9.3 fL (8.0-11.0); Platelet Count 191 10^3/uL (130-400); RBC 4.17 10^6/uL (3.93-5.22); RDW 13.5 % (11.7-14.6); RDW-SD 42.0 fL; WBC 4.73 10^3/uL (4.4-10.8)
[2025-05-21] MEDS: Ondansetron 4 MG/2 ML VIAL IVP ×2 (21:24→22:32)
[2025-05-21] MEDS: ACETAMINOPHEN 1,000 MG/100 ML BAG 400 MG IVPB (21:24)
[2025-05-21] MEDS: HYDROmorphone 2 MG/ML SYR 0.5 MG IVP (21:32)
[2025-05-21] MEDS: Lactated Ringers 1,000 ML 1000 ML IV (21:32)
[2025-05-21 21:39] LABS: HCG Qual (Serum) Negative
[2025-05-21 21:44] LABS: ALT 19 U/L (14-59); AST 14 U/L (15-37); Albumin 3.6 g/dL (3.4-5.0); Alkaline Phosphatase 58 U/L (46-116); Anion Gap 9.6 mmol/L (3-11); BUN 13 mg/dL (7-18); Bilirubin, Total 0.6 mg/dL (0.2-1.0); CO2 26.4 mmol/L (21.0-32.0); Calcium 8.3 mg/dL (8.5-10.1); Chloride 105 mmol/L (98-107); Estimated GFR 106.11 (mL/min/1.73m2); Glucose 84 mg/dL (74-106); Lipase 59 U/L (<78); Magnesium 1.9 mg/dL (1.8-2.4); Potassium 3.8 mmol/L (3.5-5.1); Sodium 141 mmol/L (136-145); Total Protein 7.0 g/dL (6.4-8.2)
--- NOTE | 2025-05-21 21:45 | W.ED.GENAD ---
Discharge Plan Disposition Patient Disposition: Home Condition: Stable Discharge Details Clinical Impression: Abdominal pain of unknown etiology, Nausea vomiting and diarrhea, Fatty liver, Cyst of left ovary Primary Care Provider: Glenn Roy ED Provider: Suad Churchill Home Meds and New Rx's Prescriptions: No Action metoprolol succinate 25 mg tablet extended release 24 hr 25 mg PO DAILY Qty: 90 1RF albuterol sulfate [Ventolin HFA] 90 mcg/actuation HFA aerosol inhaler 2 puff inhalation Q6H PRN (Reason: shortness of breath or wheezing) Qty: 8.5 0RF levetiracetam [Keppra] 500 mg tablet 500 mg PO BID Qty: 60 0RF Discharge Instructions Instructions: Abdominal Pain, Adult ED Additional Instructions: You were seen in the emergency department today for evaluation of abdominal pain with nausea, vomiting, and diarrhea. In our department he had a full physical examination performed, and had laboratory studies that were quite reassuring. You had a CT scan that did not show any sign of appendicitis, blockages in your colon, or other concerning symptoms that would explain your pain. I did note incidentally that you have changes in your liver consistent with fatty liver disease, as well as an ovarian cyst on the left side, which is the opposite side from your pain. You received medications for management of your nausea and were able to tolerate oral liquids. I recommend that you continue to maintain good hydration and nutrition, take all of your medications as prescribed, and follow-up with your primary care provider to discuss this visit and any symptoms that change, worsen, or persist. Thank you for allowing us to be part of your care. HPI General Mode of arrival: EMS. Date/Time Provider Initiated Documentation: 05/21/25 21:02. Limitations to Documentation: no limitations. Information obtained by: patient, EMS and old records reviewed. HPI Narrative: This is a 24-year-old female patient with a past medical history significant for PNES, anemia, and POTS, presenting for evaluation of abdominal pain. Her pain started tonight, is located in her right inguinal region and radiates up towards her mid and upper right sided abdomen. This pain seems to come in waves and she has not identified any propagating or palliating factors. She reports that she was supposed to get her period 8 days ago, but has not. She had a small amount of blood in her urine at her last ER visit and she suspected that she was going to start it but never did. She has not had her typical breast tenderness that she expects around this time of the month. Denies sexual activity and has no concern for . She reports that she has had some diarrhea, and nausea. Related Data Home Medications ?Medication ?Instructions ?Recorded ?Confirmed levetiracetam 500 mg tablet 500 mg PO BID #60 tabs 05/13/25 05/21/25 (Keppra) albuterol sulfate 90 mcg/actuation 2 puff inhalation Q6H PRN 05/16/25 05/21/25 aerosol inhaler (Ventolin HFA) shortness of breath or wheezing #8.5 grams metoprolol succinate 25 mg 25 mg PO DAILY #90 tabs 05/16/25 05/21/25 tablet,extended release 24 hr Previous Rx's ?Medication ?Instructions ?Recorded levetiracetam 500 mg tablet 500 mg PO BID #60 tabs 05/13/25 (Keppra) albuterol sulfate 90 mcg/actuation 2 puff inhalation Q6H PRN 05/16/25 aerosol inhaler (Ventolin HFA) shortness of breath or wheezing #8.5 grams metoprolol succinate 25 mg 25 mg PO DAILY #90 tabs 05/16/25 tablet,extended release 24 hr Allergies Allergy/AdvReac Type Severity Reaction Status Date / Time haloperidol (From Haldol) Allergy Severe Agitation Verified 05/21/25 21:07 prochlorperazine (From AdvReac Severe Anaphylaxis Verified 05/21/25 21:07 Compazine) gabapentin AdvReac Intermediate Agitation Verified 05/21/25 21:07 lorazepam (From Ativan) AdvReac Intermediate Agitation Verified 05/21/25 21:07 midazolam (From Versed) AdvReac Intermediate Psychosis Verified 05/21/25 21:07 clonazepam (From Klonopin) AdvReac Unknown unknown Verified 05/21/25 21:07 hydromorphone (From Dilaudid) AdvReac Unknown Unknown Verified 05/21/25 21:07 General Stated Complaint: Abd Prob ALONA: 3 Exam Narrative Exam Narrative: Gen: Awake and alert, in no apparent distress HEENT: Non-icteric sclera Neck: Supple Lungs: No apparent respiratory distress, normal respiratory effort. CV: Appears well perfused, heart with regular rate and rhythm, strong distal pulses Abdomen: Non-distended, soft, tender to palpation in the right lower and right upper quadrants without rigidity, rebound, though the patient does have some guarding. MSK: Moves 4 extremities without apparent limitation in ROM Skin: Visualized skin without rashes, cyanosis. Neuro: Normal Gait, no obvious focal deficits or facial asymmetry. Speaks in full, clear sentences. Psych: Appropriate for situation. Course Vital Signs Vital signs: Vital Signs Temperature 36.8 C 05/21/25 21:01 Pulse 74 05/21/25 21:01 Respiratory Rate 18 05/21/25 21:01 Blood Pressure 106/82 05/21/25 21:01 Pulse Oximetry 99 05/21/25 21:01 Temperature 36.8 C 05/21/25 21:16 Pulse 74 05/21/25 21:16 Respiratory Rate 18 05/21/25 21:16 Blood Pressure 106/82 05/21/25 21:16 Pulse Oximetry 99 05/21/25 21:16 Oxygen Delivery Method Room Air 05/21/25 21:16 Oxygen Flow Rate 0 05/21/25 21:16 Pain Level 5 05/21/25 21:16 Lab/Test Results Lab/Test Results: Laboratory Tests Range/Units 05/21/25 21:15 WBC (4.4-10.8) 10^3/uL 4.73 RBC (3.93-5.22) 10^6/uL 4.17 Hgb (11.2-15.7) g/dL 11.8 Hct (36.0-46.0) % 36.0 MCV (80-95) fL 86 MCH (27.0-33.0) pg 28.3 MCHC (32.0-36.0) % 32.8 RDW (11.7-14.6) % 13.5 Plt Count (130-400) 10^3/uL 191 MPV (8.0-11.0) fL 9.3 Immature Gran % % 0.2 Neutrophils % % 49.3 Lymphocytes % % 39.3 Monocytes % % 8.9 Eosinophils % % 2.1 Basophils % % 0.2 Nucleated RBC % (0.0-0.3) % 0.0 Absolute Neutrophils (1.2-6.7) 10^3/uL 2.33 Absolute Lymphocytes (1.2-3.4) 10^3/uL 1.86 Absolute Monocytes (0.1-0.8) 10^3/uL 0.42 Absolute Eosinophils (0.0-0.7) 10^3/uL 0.10 Absolute Basophils (0.0-0.2) 10^3/uL 0.01 Serum HCG, Qual Negative Medical Decision Making This is a 24-year-old female patient presenting for evaluation of nausea with vomiting, diarrhea, and abdominal pain. My differential includes, but is not limited to, gastritis/PUD, gastroenteritis, pancreatitis, cholecystitis and gallbladder pathology, hepatitis, appendicitis, diverticulitis, small bowel obstruction. Considered urinary pathology including UTI, nephrolithiasis. Considered mesenteric ischemia, aortic pathology, though this is less concerning based on the patient's history and physical exam. Considered ectopic , PID/TOA, ovarian cyst, ovarian torsion. Also considered cyclical vomiting syndrome, metabolic electrolyte derangement, dehydration. We will provide the patient with a liter of IV fluids, as well as Tylenol and Zofran. If Tylenol is not successful in managing her symptoms she will be provided with a small dose of Dilaudid. We will obtain labs to include CBC, CMP, magnesium, lipase, beta-hCG, and urinalysis. I will obtain a CT scan of the abdomen and pelvis. - I independently interpreted the laboratory studies, which show no significant leukocytosis, anemia, or thrombocytopenia. The chemistry panel is without evidence of electrolyte abnormality, kidney dysfunction, or liver injury. Lipase is low, beta qual is negative, and the urinalysis shows trace blood but actually fewer RBCs than were noted on her most recent urinalysis. No infectious findings appreciated. CT scan was obtained and reviewed by myself, does show an incidental note of fatty liver disease and a left ovarian cyst, which is opposite the location of the patient's pain. She does not have any evidence of right ovarian pathology, appendicitis, bowel obstruction, or other acute abnormalities identified on CT scan to explain her symptoms. She continues to complain of nausea despite redosing of Zofran, she was provided with droperidol and Benadryl to good effect. She tolerated oral fluids well in the emergency department, and is desiring of discharge home. I feel that this is reasonable even though her etiology of her abdominal pain has not been definitively elucidated. She will contact her primary care provider tomorrow to schedule a reevaluation visit. At this time, the patient has had a full medical evaluation and is safe for discharge to home. They are hemodynamically stable, ambulatory, and tolerating PO. They are understanding of the follow-up plan and return precautions. They left our facility without incident. Suad Churchill MD Quality:SDOH Health Related Social Needs: Health related social needs inadequate housing risk of homeless food insecurity transpo insecurity house/econ circumstance finding work daily activities lonely/isolated Health related social needs details in [place] where pt was working previously PFS All Active Problems (Updated 05/22/25 @ 00:20 by Suad Churchill MD) Cyst of left ovary (Acute) Fatty liver (Acute) Nausea vomiting and diarrhea (Acute) Abdominal pain of unknown etiology (Acute) Follow-up exam (Acute) POTS (postural orthostatic tachycardia syndrome) (Acute) Witnessed seizure-like activity (Acute) Hypomagnesemia (Acute) Anxiety (Chronic) Leukopenia (Acute) Leukocytosis (Acute) Anemia (Acute) Seizure-like activity (Acute) Nausea (Acute) Medical History (Updated 05/22/25 @ 00:20 by Suad Churchill MD) ISAÍAS (generalized anxiety disorder) PTSD (post-traumatic stress disorder) OCD (obsessive compulsive disorder) Psychogenic nonepileptic seizure Social History Smoking/Tobacco Use Status: Never Smoking risk assessment performed?: Yes Alcohol Intake: current Alcohol Intake frequency: holidays/special occasions only Drug use: Daily Substance use type: marijuana Housing: homeless Do you feel safe at home: Yes Do you feel safe in your relationship?: Yes
[2025-05-21] MEDS: Omnipaque 350 MG/ML 100 ML BTL IJ (21:57)
[2025-05-21] MEDS: Normal Saline - Diluent 50 ML VIAL IJ (21:57)
[2025-05-21] MEDS: Ketorolac 15 MG/ML VIAL IVP (22:33)
--- NOTE | 2025-05-21 22:45 | DI.VRAD_ITS ---
PROCEDURE INFORMATION: Exam: CT Abdomen And Pelvis With Contrast Exam date and time: 05/21/2025 9:48 PM Age: 24 years old Clinical indication: Other: Rlq pain with poor appetite, diarrhea TECHNIQUE: Imaging protocol: Computed tomography of the abdomen and pelvis with contrast. Contrast material: 350; Contrast volume: 75 ml; Contrast route: INTRAVENOUS (IV); COMPARISON: CT ABDOMEN PELVIS W 03/14/2025 8:03 PM FINDINGS: Lungs: Lung bases are clear. Pleural spaces: No pleural effusion. Heart: Normal heart size. No pericardial effusion. No coronary artery atherosclerotic calcium. Liver: Diffuse moderate fat liver change. Gallbladder and biliary ducts: The gallbladder is normal in size and shape. No stones or inflammatory changes. Pancreas: The pancreas is normal in contour and attenuation. Spleen: The spleen is normal in size, contour and attenuation. Adrenal glands: The adrenal glands are normal in size and contour bilaterally. Kidneys and ureters: The kidneys bilaterally are unremarkable. Normal attenutation. No hydronephrosis. No calculi. Stomach and bowel: Gastric morphology is unremarkable. No edema. No gastric outlet obstruction.Small bowel loops are normal in course and caliber. There is no mucosal edema or bowel wall thickening. No obstructive features.The colon contains formed fecal material. There is no bowel wall thickening. No inflammatory features. No obstruction. Appendix: A non inflamed appendix is identified containing air. See coronal series 4: Images 30 through 32. Intraperitoneal space: Unremarkable. No free air. No significant fluid collection. Vasculature: Unremarkable. No abdominal aortic aneurysm. Lymph nodes: Unremarkable. No enlarged lymph nodes. Urinary bladder: Unremarkable as visualized. Reproductive: Uterus is unremarkable. A nonspecific left ovarian cyst is identified measuring 36 x 31 mm. Series 8: Image 78. Bones/joints: Unremarkable. No acute fracture. Soft tissues: Abdominal wall soft tissues are unremarkable. IMPRESSION: 1. No bowel inflammation, edema, or obstructive features. 2. A non inflamed appendix is identified. 3. Fatty liver. 4. No acute biliary tract findings. 5. No acute urinary tract findings. 6. Incidental note of a left ovarian 36 x 31 mm thin walled cyst. 7. No free fluid. No free air. Dictated and Authenticated by: Vikram Yanes MD. Orderin St. Medhat Borjas MD
[2025-05-21 22:57] LABS: Glucose Negative (Negative)
[2025-05-21 23:07] LABS: C & S Indicated? No; RBC 0-2 HPF (0-2); WBC Negative HPF (0-5)
[2025-05-21] MEDS: Droperidol 5 MG/2 ML VIAL 1.25 MG IVP (23:33)
[2025-05-21] MEDS: diphenhydrAMINE 50 MG/ML VIAL 25 MG IVP (23:33)
[2025-05-22 00:37] VITALS: BP 96/50; PULSE 70; RESP 16; O2SAT 100
== END 2025-05-22 01:17 | disposition home or self-care (01) ==
PROVIDERS: Emergency Provider Emergency Medicine; PCP Family Medicine
DX: R10.31 Right lower quadrant pain (principal); R11.2 Nausea with vomiting, unspecified; R19.7 Diarrhea, unspecified; K76.0 Fatty (change of) liver, not elsewhere classified; N83.202 Unspecified ovarian cyst, left side; Z59.10 Inadequate housing, unspecified; Z59.41 Food insecurity; Z59.82 Transportation insecurity; Z59.811 Housing instability, housed, with risk of homelessness
CPT/HCPCS: 99284; 99285; 36415; 96375; 96376; 80053; 83690; 96365; 74177; 81003; 81015; 83735; 84703; 85025; J0131; J1171; J1200; J1790; J1885; J2405; J3490

== ENCOUNTER 2025-05-25 10:36 | Emergency (ER) | payer MEDICAID, SELFPAY ==
[2025-05-25 10:39] VITALS: BP 136/87; PULSE 108; RESP 20; TEMP 36.7; O2SAT 95
[2025-05-25 10:59] VITALS: BP 136/87; PULSE 108; RESP 20; TEMP 36.7; O2SAT 95
--- NOTE | 2025-05-25 11:30 | DI.US_ITS ---
Exam(s) US PELVIS EXAM: US PELVIS CLINICAL HISTORY: LLQ pain, hx ovarian cyst, ?torsion TECHNIQUE: Ultrasound of the pelvis was performed transabdominally. Patient apparently declined transvaginal study.. COMPARISON: US US ABDOMEN RENAL from 03/14/[address] ABDOMEN PELVIS W from 05/21/2025 FINDINGS: UTERUS: Anteverted and nongravid Measures 6.6 cm length x 3.1 cm AP x 0.3 cm wide. There are no uterine fibroids. Endometrial thickness measures 3 mm. There is no fluid in the endometrial canal. CERVIX: There are no obvious nabothian cysts. RIGHT OVARY: Measures 2.7 x 2.6 x 2.0 cm No significant cysts nor masses evident in the right ovary. Normal vascular flow. LEFT OVARY: Measures 2.8 x 3.1 x 3.5 cm. Normal vascular flow. The previously described 3.5 x 3 cm left ovarian cyst seen on recent CT scan appears to have decreased in size, presently measuring 2 x 1.3 x 1.1 cm. There are no other ovarian nor extra ovarian adnexal masses and there is no free fluid in the adnexal regions. CUL-DE-SAC: No free fluid evident. IMPRESSION: 1. Normal appearing uterus and age-appropriate endometrium. 2. The recently described a 3.5 x 3.0 cm left ovarian cyst appears to have decreased in size when compared to 05/21/2025, presently measuring 2.0 x 1.3 x 1.1 cm. No additional ovarian findings. Normal blood flow demonstrated in both ovaries and there is no free adnexal fluid nor fluid in the cul-de-sac. DATA REPOSITORY:
--- NOTE | 2025-05-25 11:34 | W.ED.GENAD ---
Discharge Plan Disposition Patient Disposition: Home Condition: Good Discharge Details Clinical Impression: Cyst of left ovary, Abdominal pain Primary Care Provider: Glenn Roy ED Provider: Yin Rodriguez Home Meds and New Rx's Prescriptions: Continued metoprolol succinate 25 mg tablet extended release 24 hr 25 mg PO DAILY Qty: 90 1RF albuterol sulfate [Ventolin HFA] 90 mcg/actuation HFA aerosol inhaler 2 puff inhalation Q6H PRN (Reason: shortness of breath or wheezing) Qty: 8.5 0RF levetiracetam [Keppra] 500 mg tablet 500 mg PO BID Qty: 60 0RF Discharge Instructions Instructions: Ovarian Cyst ED Additional Instructions: As we discussed, your labs and imaging are reassuring here today. The cyst appears to be shrinking some on the left side, this could be associated with changes in your hormones which is normal throughout the course of a month. The bleeding you are experiencing is likely menstrual bleeding. I would like for you to follow-up with women's wellness, number listed below. Please call to schedule follow-up appointment. If you develop any increased pain, inability stay hydrated or other new/worsening symptom please seek care urgently once again. Please continue to try and request your records from your previous FACILITIES DIRECTOR provider so that these may be reviewed by the care team here. Stand Alone Forms: Work Release Referrals: Shanti Hobbs NP [NURSE PRACTITIONER, Gynecology Medical] Discharge Data Discharge Date/Time-TO BE ENTERED AT DEPARTURE: 05/25/25 14:19 HPI General Date/Time Provider Initiated Documentation: 05/25/25 11:34. Limitations to Documentation: no limitations. Information obtained by: patient, family, RN notes reviewed and old records reviewed. History of Present Illness 24 year old F presents to the emergency department with the chief complaint of LLQ pain, described as severe, Quality is described as stabbing, and is localized to the abdomen. Patient reports no radiation. Patient started experiencing this day(s) (1) and it has been constant. No relieving factors improve symptom(s), No exacerbating factors reported . Patient notes loss of appetite, malaise and nausea/vomiting; denies chest pain, diaphoresis, fever/chills, rash, shortness of breath and syncope. Patient did receive the following treatments prior to arrival, none Related Data Home Medications Medication Instructions Recorded Confirmed levetiracetam 500 mg tablet 500 mg PO BID #60 tabs 05/13/25 05/25/25 (Keppra) albuterol sulfate 90 mcg/actuation 2 puff inhalation Q6H PRN 05/16/25 05/25/25 aerosol inhaler (Ventolin HFA) shortness of breath or wheezing #8.5 grams metoprolol succinate 25 mg 25 mg PO DAILY #90 tabs 05/16/25 05/25/25 tablet,extended release 24 hr Previous Rx's Medication Instructions Recorded levetiracetam 500 mg tablet 500 mg PO BID #60 tabs 05/13/25 (Keppra) albuterol sulfate 90 mcg/actuation 2 puff inhalation Q6H PRN 05/16/25 aerosol inhaler (Ventolin HFA) shortness of breath or wheezing #8.5 grams metoprolol succinate 25 mg 25 mg PO DAILY #90 tabs 05/16/25 tablet,extended release 24 hr Allergies Allergy/AdvReac Type Severity Reaction Status Date / Time haloperidol (From Haldol) Allergy Severe Agitation Verified 05/25/25 10:43 prochlorperazine (From AdvReac Severe Anaphylaxis Verified 05/25/25 10:43 Compazine) gabapentin AdvReac Intermediate Agitation Verified 05/25/25 10:43 lorazepam (From Ativan) AdvReac Intermediate Agitation Verified 05/25/25 10:43 midazolam (From Versed) AdvReac Intermediate Psychosis Verified 05/25/25 10:43 clonazepam (From Klonopin) AdvReac Unknown unknown Verified 05/25/25 10:43 hydromorphone (From Dilaudid) AdvReac Unknown Unknown Verified 05/25/25 10:43 General Stated Complaint: Abd Prob ALONA: 3 Review of Systems Constitutional Constitutional: Reports as per HPI, Denies chills and Denies fever(s) Cardiovascular Cardiovascular: Reports as per HPI, Denies chest pain and Denies dyspnea Respiratory Respiratory: Reports as per HPI, Denies cough and Denies dyspnea Gastrointestinal Gastrointestinal: Reports as per HPI Musculoskeletal Musculoskeletal: Reports as per HPI and Denies back pain Integumentary/Breasts Skin/Breast: Reports as per HPI and Denies rash Neurologic Neurologic: Reports as per HPI Exam Const General: cooperative, healthy appearing, uncomfortable, no acute distress, well developed and anxious Nutritional Appearance: average body habitus and well nourished Orientation: alert and awake [facility] Head: normal to inspection Mouth: moist mucous membranes Resp Effort & Inspection: normal respiratory effort, able to speak in complete sentences and no respiratory distress Auscultation: clear to auscultation bilaterally, no rales, no rhonchi and no wheezes Cardio Rate: regular rate Rhythm: regular rhythm Heart Sounds: S1 normal and S2 normal GI Inspection: normal to inspection Palpation: soft, no hepatosplenomegaly, no guarding, no masses, no pulsatile masses, not rigid and tender in the LLQ Percussion: normal to percussion Auscultation: normal bowel sounds Back/Spine/Pelvis Back: no CVA tenderness Skin General skin exam: no rashes or lesions noted Trauma: no lacerations or abrasions Neuro General: patient alert and patient awake Cognition: normal cognition Speech: speech normal Gait: normal gait Course Vital Signs Vital signs: Vital Signs Temperature 36.7 C 05/25/25 10:39 Pulse 108 H 05/25/25 10:39 Respiratory Rate 20 05/25/25 10:39 Blood Pressure 136/87 05/25/25 10:39 Pulse Oximetry 95 05/25/25 10:39 Temperature 36.7 C 05/25/25 10:59 Pulse 108 H 05/25/25 10:59 Respiratory Rate 20 05/25/25 10:59 Blood Pressure 136/87 05/25/25 10:59 Blood Pressure Position Sitting 05/25/25 10:59 Pulse Oximetry 95 05/25/25 10:59 Oxygen Delivery Method Room Air 05/25/25 10:59 Oxygen Flow Rate 0 05/25/25 10:59 Medical Decision Making Patient is a pleasant 24-year-old female, accompanied by friend, presenting chief complaint of left lower quadrant pain. She reports that she never had pain like this before it is quite sharp and has been persistent after starting yesterday. She reports she also had abnormal uterine bleeding that started yesterday that is not in alignment with her normal menses. Patient reports she is not sexually active. Her last typical menses was started on 16 April. No fevers or chills. No previous abdominal surgeries. She reports that she had been previously being worked up for potential endometriosis. Also recently had a ultrasound showing a 3.5 cm left ovarian cyst. States she has had nausea, no vomiting. She has had some diarrhea but no blood in her stool. No change in urinary habits. Denies any history of STIs. On exam, patient appears very uncomfortable, holding her abdomen and writhing. Abdominal exam shows to be fairly diffusely tender but primarily in the left lower quadrant her pain is maximal and patient does have some guarding. She reports some nausea currently. Primarily concern for ovarian torsion at this point. Will obtain repeat transvaginal ultrasound. Will also obtain baseline labs, hCG and give pain medication. Labs reviewed. No leukocytosis. Stable H&H. CMP within normal limits. Urine shows trace blood with the patient. Currently menstruating, this is not overly surprising. Patient was hCG negative. Ultrasound shows normal-appearing uterus and endometrium. Ovarian cyst has decreased somewhat in size no additional ovarian findings, normal blood flow through both ovaries and no free fluid in the adnexa. Discussed the findings with the patient. She reports that she is feeling improved. Agreeable to discharge at this time. No other indication for emergent pathology at this time. She reported she has been seen historically with a specialist in [place]. She reports that she needs to be on a specialized hormone to be able to help control her symptoms was not clear what this was. She is can to try and request those historical documents and that she is able to follow-up here with women's wellness and continue with her gynecologic care. We did discuss a vaginal exam but as patient continues to deny any STI exposures and is due for a Pap smear anyway, would prefer to hold off until being seen by them next week. Return precautions were discussed. We did discuss supportive care. Work note will be given at patient's request. She and I did discuss the other possible causes. As this has been an ongoing issue and she had been previously tentatively diagnosed with endometriosis, I did discuss that this could potentially be worsening but would need to be diagnosed with FACILITIES DIRECTOR and potentially be hormonally mediated. All of her questions and concerns were addressed and patient is in agreement with this plan. Dictation completed using [employer] dictation software. Please excuse any errors or aoc director intelligence officer anomalies that may remain. Quality:SDOH Health Related Social Needs: Health related social needs inadequate housing risk of homeless food insecurity transpo insecurity house/econ circumstance finding work daily activities lonely/isolated Health related social needs details in [place] where pt was working previously PFSH All Active Problems (Updated 05/25/25 @ 14:06 by SHAWN Dickinson) Abdominal pain (Acute) Cyst of left ovary (Acute) Fatty liver (Acute) Nausea vomiting and diarrhea (Acute) Abdominal pain of unknown etiology (Acute) Follow-up exam (Acute) POTS (postural orthostatic tachycardia syndrome) (Acute) Witnessed seizure-like activity (Acute) Hypomagnesemia (Acute) Anxiety (Chronic) Leukopenia (Acute) Leukocytosis (Acute) Anemia (Acute) Seizure-like activity (Acute) Nausea (Acute) Medical History (Updated 05/25/25 @ 14:06 by SHAWN Dickinson) ISAÍAS (generalized anxiety disorder) PTSD (post-traumatic stress disorder) OCD (obsessive compulsive disorder) Psychogenic nonepileptic seizure Social History Smoking/Tobacco Use Status: Never Smoking risk assessment performed?: Yes Alcohol Intake: current Alcohol Intake frequency: holidays/special occasions only Drug use: Daily Substance use type: marijuana Housing: homeless Do you feel safe at home: Yes Do you feel safe in your relationship?: Yes
[2025-05-25] MEDS: diphenhydrAMINE 50 MG/ML VIAL 25 MG IVP (11:56)
[2025-05-25] MEDS: MORPHine 4 MG/ML SYR IVP (11:56)
[2025-05-25] MEDS: Normal Saline 50 ML 100 ML (11:57)
[2025-05-25] MEDS: Metoclopramide 10 MG/2 ML VIAL IVP (11:57)
[2025-05-25 12:10] LABS: Abs Immature Grans 0.02 10^3/uL (0.0-0.06); HCT 38.8 % (36.0-46.0); HGB 12.5 g/dL (11.2-15.7); Immature Grans % 0.4 %; MCH 27.9 pg (27.0-33.0); MCHC 32.2 % (32.0-36.0); MCV 87 fL (80-95); MPV 9.4 fL (8.0-11.0); Platelet Count 203 10^3/uL (130-400); RBC 4.48 10^6/uL (3.93-5.22); RDW 13.3 % (11.7-14.6); RDW-SD 41.9 fL; WBC 5.23 10^3/uL (4.4-10.8)
[2025-05-25 12:29] LABS: ALT 20 U/L (14-59); AST 13 U/L (15-37); Albumin 4.1 g/dL (3.4-5.0); Alkaline Phosphatase 60 U/L (46-116); Anion Gap 7.8 mmol/L (3-11); BUN 13 mg/dL (7-18); Bilirubin, Total 0.6 mg/dL (0.2-1.0); CO2 29.2 mmol/L (21.0-32.0); Calcium 8.8 mg/dL (8.5-10.1); Chloride 104 mmol/L (98-107); Glucose 85 mg/dL (74-106); Lipase 41 U/L (<78); Magnesium 1.8 mg/dL (1.8-2.4); Potassium 3.9 mmol/L (3.5-5.1); Sodium 141 mmol/L (136-145); Total Protein 7.8 g/dL (6.4-8.2)
[2025-05-25 12:48] LABS: Glucose Negative (Negative)
[2025-05-25 12:57] LABS: WBC 0-2 HPF (0-5)
[2025-05-25 12:58] LABS: C & S Indicated? No; RBC 0-2 HPF (0-2)
[2025-05-25 13:10] VITALS: BP 98/51; PULSE 66; RESP 16; O2SAT 100
[2025-05-25 14:17] VITALS: BP 102/56; PULSE 69; RESP 16; O2SAT 100
== END 2025-05-25 14:19 | disposition home or self-care (01) ==
PROVIDERS: Emergency Provider Physician Assistant; PCP Family Medicine
DX: R10.32 Left lower quadrant pain (principal); N83.202 Unspecified ovarian cyst, left side; R11.0 Nausea; Z59.10 Inadequate housing, unspecified; Z59.811 Housing instability, housed, with risk of homelessness; Z59.89 Other problems related to housing and economic circumstances; Z59.41 Food insecurity; Z60.8 Other problems related to social environment; Z59.868 Other specified financial insecurity
CPT/HCPCS: 99283; 99284; 96374; 96375; 81025; 80053; 83690; 76856; 81003; 81015; 83735; 85025; J1200; J2270; J2765

== ENCOUNTER 2025-05-27 19:47 | Emergency (ER) | payer MEDICAID, SELFPAY ==
[2025-05-27] VITALS (37 sets, daily range): BP systolic 92–130; BP diastolic 27–84; PULSE 42–177; RESP 7–31; TEMP 36.8; O2SAT 93–100
--- NOTE | 2025-05-27 19:45 | RT.EKG_ITS ---
APPROVED REPORT Exam: Resting ECG Reason for Exam: seizure Patient Location: E HR:51 bpm ECG Measurements Heart Rate 51 AXIS OR 162 P 49 QRSd 88 QRS 55 QT 443 T 44 QTc 409 Conclusion Sinus bradycardia...rate< 60 No STEMI
[2025-05-27 20:26] LABS: Abs Immature Grans 0.01 10^3/uL (0.0-0.06); HCT 36.1 % (36.0-46.0); HGB 11.9 g/dL (11.2-15.7); Immature Grans % 0.1 %; MCH 28.3 pg (27.0-33.0); MCHC 33.0 % (32.0-36.0); MCV 86 fL (80-95); MPV 9.9 fL (8.0-11.0); Platelet Count 263 10^3/uL (130-400); RBC 4.20 10^6/uL (3.93-5.22); RDW 13.3 % (11.7-14.6); RDW-SD 41.7 fL; WBC 7.65 10^3/uL (4.4-10.8)
[2025-05-27 20:38] LABS: Magnesium 1.8 mg/dL (1.8-2.4)
[2025-05-27] MEDS: Midazolam 5 MG/5 ML VIAL ×2 (20:39→22:27)
[2025-05-27] MEDS: levETIRAcetam 500 MG in Normal Saline 100 ML 400 MG IVPB (20:40)
[2025-05-27] MEDS: Normal Saline 500 ML IV (20:40)
[2025-05-27 20:42] LABS: ALT 20 U/L (14-59); AST 20 U/L (15-37); Albumin 3.6 g/dL (3.4-5.0); Alkaline Phosphatase 58 U/L (46-116); Anion Gap 8.7 mmol/L (3-11); BUN 13 mg/dL (7-18); Bilirubin, Total 0.4 mg/dL (0.2-1.0); CO2 27.3 mmol/L (21.0-32.0); Calcium 8.6 mg/dL (8.5-10.1); Chloride 104 mmol/L (98-107); Glucose 96 mg/dL (74-106); Potassium 3.9 mmol/L (3.5-5.1); Sodium 140 mmol/L (136-145); Total Protein 7.1 g/dL (6.4-8.2)
[2025-05-27 21:15] LABS: Lab Add On Test DONE
[2025-05-27 21:30] LABS: Troponin I 4 ng/L (<or=51)
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
[2025-05-27] MEDS: Ondansetron 4 MG/2 ML VIAL (22:27)
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
[2025-05-28] VITALS (10 sets, daily range): BP systolic 111; BP diastolic 66; PULSE 43–83; O2SAT 97–100
--- NOTE | 2025-05-28 00:11 | NUR.NOTE ---
Nursing Note: Pt ambulated to bathroom and back to ED stretcher with even and steady gait. Urine collected and sent to lab.
[2025-05-28 00:33] LABS: Cannabinoids THC Positive (Negative)
[2025-05-28] MEDS: METOCLOPRAMIDE IVPB (01:26)
[2025-05-28] MEDS: NORMAL SALINE IVPB (01:26)
== END 2025-05-28 16:42 | disposition home or self-care (01) ==
PROVIDERS: Physician Assistant; Emergency Provider Emergency Medicine Emergency Medical Services; PCP Family Medicine
DX: T50.901A Poisoning by unspecified drugs, medicaments and biological substances, accidental (unintentional), initial encounter (principal); R56.9 Unspecified convulsions
CPT/HCPCS: 99284 ×2; 80053; 80307; 93005; 96361; 96365; 96367; 80320; 83735; 84484; 85025; 93010; J1953; J2250; J2405; J2765

== ENCOUNTER 2025-05-28 12:16 | Emergency (ER) | payer MEDICAID, SELFPAY ==
--- NOTE | 2025-05-28 12:39 | W.ED.GENAD ---
Discharge Plan Disposition Patient Disposition: Home Condition: Stable Discharge Details Clinical Impression: Anxiety Primary Care Provider: Glenn Roy ED Provider: Aidan Hobbs Home Meds and New Rx's Prescriptions: Continued metoprolol succinate 25 mg tablet extended release 24 hr 25 mg PO DAILY Qty: 90 1RF albuterol sulfate [Ventolin HFA] 90 mcg/actuation HFA aerosol inhaler 2 puff inhalation Q6H PRN (Reason: shortness of breath or wheezing) Qty: 8.5 0RF levetiracetam [Keppra] 500 mg tablet 500 mg PO BID Qty: 60 0RF Discharge Instructions Additional Instructions: Follow-up with your primary care provider and [facility] services. If you feel more ill or have new symptoms such as thoughts of self-harm return to the emergency department for reevaluation. HPI General Mode of arrival: EMS. Date/Time Provider Initiated Documentation: 05/28/25 12:17. Limitations to Documentation: no limitations. Information obtained by: patient. History of Present Illness 24 year old F presents to the emergency department with the chief complaint of anxious, panic attacks, described as moderate, Patient started experiencing this month(s) (1) and it has been intermittent. No relieving factors improve symptom(s), No exacerbating factors reported . Patient did receive the following treatments prior to arrival, none Related Data Home Medications Medication Instructions Recorded Confirmed levetiracetam 500 mg tablet 500 mg PO BID #60 tabs 05/13/25 05/28/25 (Keppra) albuterol sulfate 90 mcg/actuation 2 puff inhalation Q6H PRN 05/16/25 05/28/25 aerosol inhaler (Ventolin HFA) shortness of breath or wheezing #8.5 grams metoprolol succinate 25 mg 25 mg PO DAILY #90 tabs 05/16/25 05/28/25 tablet,extended release 24 hr Previous Rx's Medication Instructions Recorded levetiracetam 500 mg tablet 500 mg PO BID #60 tabs 05/13/25 (Keppra) albuterol sulfate 90 mcg/actuation 2 puff inhalation Q6H PRN 05/16/25 aerosol inhaler (Ventolin HFA) shortness of breath or wheezing #8.5 grams metoprolol succinate 25 mg 25 mg PO DAILY #90 tabs 05/16/25 tablet,extended release 24 hr Allergies Allergy/AdvReac Type Severity Reaction Status Date / Time haloperidol (From Haldol) Allergy Severe Agitation Verified 05/28/25 12:46 prochlorperazine (From AdvReac Severe Anaphylaxis Verified 05/28/25 12:46 Compazine) gabapentin AdvReac Intermediate Agitation Verified 05/28/25 12:46 lorazepam (From Ativan) AdvReac Intermediate Agitation Verified 05/28/25 12:46 midazolam (From Versed) AdvReac Intermediate Psychosis Verified 05/28/25 12:46 clonazepam (From Klonopin) AdvReac Unknown unknown Verified 05/28/25 12:46 hydromorphone (From Dilaudid) AdvReac Unknown Unknown Verified 05/28/25 12:46 General ALONA: 2 Review of Systems All systems reviewed & are unremarkable except as noted in HPI and below Constitutional Constitutional: Denies chills, Denies fever(s) and Denies weakness Cardiovascular Cardiovascular: Denies chest pain and Denies dyspnea Respiratory Respiratory: Denies cough and Denies dyspnea Gastrointestinal Gastrointestinal: Denies abdominal pain, Denies nausea and Denies vomiting Neurologic Neurologic: Denies weakness Psychiatric Psychiatric: Reports anxiety Medical Decision Making 24-year-old female with a history of bipolar disorder, nonepileptic seizure-like activity who was seen yesterday for episodes of seizure-like activity comes in after she was at [employer]abapt[employer] and apparently started having staring spells and was shaking her arms and legs. No incontinence or tongue biting. She is currently awake and alert appears anxious. She denies any illicit drug use today. Yesterday her mother per the patient gave her methadone which is not hers. She is concerned because she has no mental health providers appearance here and voices. She denies any SI or HI. She is refusing any blood work or imaging which I feel is reasonable given she has a reassuring workup yesterday. I suspect her symptoms are driven by her mental health, will have crisis screener evaluate. Crisis screener had to go to another case before coming here so evaluation was delayed. Patient took 2 mg of diazepam with good effect for anxiety patient is out of the crisis meeting and is cleared to go home. No SI or HI. she will follow-up with PCP and outpatient mental health resources, return precautions given. Differential Diagnosis Differential Diagnosis: Panic attacks, nonepileptic seizure-like activity, POTS Quality:SDOH Health Related Social Needs: Health related social needs inadequate housing risk of homeless food insecurity transpo insecurity house/econ circumstance finding work daily activities lonely/isolated Health related social needs details in [place] where pt was working previously PFSH All Active Problems (Updated 05/28/25 @ 16:19 by Aidan Hobbs MD) Drug ingestion, accidental (Acute) Abdominal pain (Acute) Cyst of left ovary (Acute) Fatty liver (Acute) Nausea vomiting and diarrhea (Acute) Abdominal pain of unknown etiology (Acute) Follow-up exam (Acute) POTS (postural orthostatic tachycardia syndrome) (Acute) Witnessed seizure-like activity (Acute) Hypomagnesemia (Acute) Anxiety (Chronic) Leukopenia (Acute) Leukocytosis (Acute) Anemia (Acute) Seizure-like activity (Acute) Nausea (Acute) Medical History (Updated 05/28/25 @ 16:19 by iAdan Hobbs MD) ISAÍAS (generalized anxiety disorder) PTSD (post-traumatic stress disorder) OCD (obsessive compulsive disorder) Psychogenic nonepileptic seizure Social History Smoking/Tobacco Use Status: Never Smoking risk assessment performed?: Yes Alcohol Intake: current Alcohol Intake frequency: holidays/special occasions only Drug use: Daily Substance use type: marijuana Housing: homeless Do you feel safe at home: Yes Do you feel safe in your relationship?: Yes Additional Social history: lives in senior living provided by [facility]
[2025-05-28 12:42] VITALS: BP 127/81; PULSE 86; RESP 20; O2SAT 97
[2025-05-28] MEDS: diazePAM 2 MG TAB PO (15:23)
[2025-05-28 16:28] VITALS: BP 128/59; PULSE 64; RESP 16; TEMP 36.7; O2SAT 97
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
--- NOTE | 2025-05-29 00:01 | NVR[facility].SBSAF_ITS ---
Date of service: 05/28/25 Time of Service: 14:59 Jacob-Brown Safety Plan Step 1: Warning signs 1.: Talk erratically 2.: Pace back and forth 3.: Space or zone out Step 2: Internal Coping Strategies Things I can do to take my mind off my problems without contacting another person: 1.: Listen to music 2.: 5,4,3,2,1 3.: Coloring or watching TV Step 3: People and Social Settings People and social settings that provide distraction: 1. Name: Boyfriennikia 2. Name: Hal parr 3. Place: [facility] 4. Place: Work Step 4: Assistance People whom I can ask for help during a crisis: 1. Name: Bryant 1. Contact Information: [phone] 2. Name: Felicitas Hernandez 2. Contact Information: [place] 3. Name: Johanna mann 3. Contact Information: [phone] Step 5: Professionals/Agencies Professionals or agencies I can contact during a crisis: 1. Clinician/Agency Name: [facility] 1. 1. Emergency Contact: Bryant Henriquez 2. Clinician/Agency Name: [id number] 2. Phone: [phone] 2. Emergency Contact: [phone] 3. Local Emergency Department: [address] [place] [address] 4. [facility] ([facility]) Mobile Crisis Suicide Prevention Lifeline Phone: [phone] Step 6: Making the Environment Safer Making the environment safer (plan for lethal means safety): 1.: Currently no access to means Jacob Spencer Copyright Jacob-Tj Safety Planning Intervention The Jacob-Brown Safety Plan is copyrighted by Ciera James, PhD & Tushar Spencer, PhD (2020). Individual use of the Jacob-Brown Safety Plan form is permitted. Written permission from the authors is required for any changes to this form or use of this form in the electronic medical record. Additional resources are available from www.suicidesafetyplan.com.
== END 2025-05-28 16:32 | disposition home or self-care (01) ==
PROVIDERS: Emergency Provider Emergency Medicine; PCP Family Medicine
DX: F41.9 Anxiety disorder, unspecified (principal); Z59.811 Housing instability, housed, with risk of homelessness; Z59.82 Transportation insecurity; Z59.41 Food insecurity; Z60.8 Other problems related to social environment
CPT/HCPCS: 99283 ×2; 81025; 00123; 96127

== ENCOUNTER 2025-05-31 11:40 | Emergency (ER) | payer MEDICAID, SELFPAY ==
[2025-05-31 11:41] VITALS: PULSE 64; RESP 18; TEMP 36.6; O2SAT 97
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
[2025-05-31 12:09] VITALS: BP 137/84
[2025-05-31 12:10] VITALS: BP 137/84; PULSE 64; RESP 18; TEMP 36.6; O2SAT 97
[2025-05-31] MEDS: Normal Saline 500 ML IV (12:30)
[2025-05-31] MEDS: METOCLOPRAMIDE 10 MG in Normal Saline 50 ML 200 MG IVPB (12:30)
[2025-05-31 12:43] LABS: Abs Immature Grans 0.03 10^3/uL (0.0-0.06); HCT 38.0 % (36.0-46.0); HGB 12.1 g/dL (11.2-15.7); Immature Grans % 0.5 %; MCH 27.8 pg (27.0-33.0); MCHC 31.8 % (32.0-36.0); MCV 87 fL (80-95); MPV 9.5 fL (8.0-11.0); Platelet Count 189 10^3/uL (130-400); RBC 4.36 10^6/uL (3.93-5.22); RDW 13.4 % (11.7-14.6); RDW-SD 42.8 fL; WBC 5.96 10^3/uL (4.4-10.8)
[2025-05-31 12:57] LABS: Anion Gap 8.9 mmol/L (3-11); BUN 8 mg/dL (7-18); CO2 29.1 mmol/L (21.0-32.0); Calcium 8.9 mg/dL (8.5-10.1); Chloride 105 mmol/L (98-107); Glucose 84 mg/dL (74-106); Magnesium 1.8 mg/dL (1.8-2.4); Potassium 3.8 mmol/L (3.5-5.1); Sodium 143 mmol/L (136-145)
[2025-05-31 13:10] LABS: COVID-19 PCR Negative (Negative); RSV PCR Negative (Negative)
[2025-05-31 13:13] LABS: HCG Qual (Serum) Negative
[2025-05-31] MEDS: Ketorolac 15 MG/ML VIAL 10 MG IVP (13:20)
== END 2025-05-31 13:23 | disposition home or self-care (01) ==
PROVIDERS: Emergency Provider Emergency Medicine; PCP Family Medicine
DX: R51.9 Headache, unspecified; R11.0 Nausea; Z59.811 Housing instability, housed, with risk of homelessness; Z59.82 Transportation insecurity; Z59.89 Other problems related to housing and economic circumstances; Z59.41 Food insecurity; Z60.8 Other problems related to social environment; Z73.9 Problem related to life management difficulty, unspecified; J06.9 Acute upper respiratory infection, unspecified
CPT/HCPCS: 80048; 87637; 96365; 96375; 99284; 83735; 84703; 85025; 99283; J1885; J2765

== ENCOUNTER 2025-06-09 21:04 | Emergency (ER) | payer MEDICAID, SELFPAY ==
[2025-06-09 21:06] VITALS: BP 114/68; PULSE 94; RESP 20; TEMP 37; O2SAT 98
[2025-06-09] MEDS: Acetaminophen 500 MG TAB 1000 MG PO (22:01)
[2025-06-09 22:21] LABS: Abs Immature Grans 0.01 10^3/uL (0.0-0.06); HCT 37.4 % (36.0-46.0); HGB 12.1 g/dL (11.2-15.7); Immature Grans % 0.2 %; MCH 27.4 pg (27.0-33.0); MCHC 32.4 % (32.0-36.0); MCV 85 fL (80-95); MPV 9.5 fL (8.0-11.0); Platelet Count 208 10^3/uL (130-400); RBC 4.42 10^6/uL (3.93-5.22); RDW 13.2 % (11.7-14.6); RDW-SD 40.9 fL; WBC 6.15 10^3/uL (4.4-10.8)
[2025-06-09 22:40] LABS: ALT 13 U/L (10-49); AST 20 U/L (<34); Albumin 4.9 g/dL (3.4-5.0); Alkaline Phosphatase 50 U/L (46-116); Anion Gap 8.1 mmol/L (3-11); BUN 14 mg/dL (9-23); Bilirubin, Total 0.80 mg/dL (0.2-1.2); CO2 28.9 mmol/L (20.0-31.0); Calcium 9.4 mg/dL (8.3-10.6); Chloride 104 mmol/L (98-107); Glucose 96 mg/dL (74-106); Potassium 3.6 mmol/L (3.5-5.1); Sodium 141 mmol/L (136-145); Total Protein 7.8 g/dL (5.7-8.2)
[2025-06-09 23:05] LABS: HCG Qual (Serum) Negative
[2025-06-09] MEDS: Dicyclomine 10 MG CAP PO (23:57)
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
== END 2025-06-10 00:26 | disposition home or self-care (01) ==
PROVIDERS: Emergency Provider General Practice; PCP Family Medicine
DX: R10.31 Right lower quadrant pain (principal); Z59.10 Inadequate housing, unspecified; Z59.82 Transportation insecurity; Z59.89 Other problems related to housing and economic circumstances; Z59.41 Food insecurity
CPT/HCPCS: 99283 ×2; 36415; 80053; 81025; 83605; 84703; 85025

== ENCOUNTER 2025-06-19 22:12 | Inpatient (IN) | payer MEDICAID, SELFPAY ==
[2025-06-19] VITALS (93 sets, daily range): BP systolic 103–127; BP diastolic 62–88; PULSE 48–74; RESP 9–30; O2SAT 98–100
--- NOTE | 2025-06-19 22:00 | RT.EKG_ITS ---
APPROVED REPORT Exam: Resting ECG Reason for Exam: overdose/Metoprolol Patient Location: E HR:59 bpm ECG Measurements Heart Rate 59 AXIS WV 186 P 46 QRSd 79 QRS 71 QT 397 T 59 QTc 395 Conclusion Sinus bradycardia...rate< [address] segment or T wave abnormalities to suggest occlusive VT
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
[2025-06-19 22:31] LABS: Abs Immature Grans 0.04 10^3/uL (0.0-0.06); HCT 36.8 % (36.0-46.0); HGB 12.2 g/dL (11.2-15.7); Immature Grans % 0.4 %; MCH 28.0 pg (27.0-33.0); MCHC 33.2 % (32.0-36.0); MCV 84 fL (80-95); MPV 9.7 fL (8.0-11.0); Platelet Count 208 10^3/uL (130-400); RBC 4.36 10^6/uL (3.93-5.22); RDW 13.1 % (11.7-14.6); RDW-SD 40.0 fL; WBC 10.76 10^3/uL (4.4-10.8)
--- NOTE | 2025-06-19 22:40 | NUR.NOTE ---
@ APPROX 2233 Pt began demonstrating seizure-like activity, w/ small generalized full body twitches and not responding to verbal commands and wincing w/ sternal rub but not responding or localizing. MD Willson at bedside to assess and pt body twitching more pronounced. R nare NPA placed by MD Willson and pt seizure activity resolved, pt promptly awake, coughing on NPA and removed it spontaneously. Answering questions from this RN immediately afterward.
[2025-06-19] MEDS: Normal Saline 1,000 ML 1000 ML IV (22:44)
[2025-06-19 22:47] LABS: Magnesium 1.5 mg/dL (1.6-2.6)
[2025-06-19 22:48] LABS: ALT 25 U/L (10-49); AST 28 U/L (<34); Albumin 4.3 g/dL (3.4-5.0); Alkaline Phosphatase 48 U/L (46-116); Anion Gap 8.7 mmol/L (3-11); BUN 11 mg/dL (9-23); Bilirubin, Total 0.70 mg/dL (0.2-1.2); CO2 27.3 mmol/L (20.0-31.0); Calcium 8.9 mg/dL (8.3-10.6); Chloride 105 mmol/L (98-107); Glucose 103 mg/dL (74-106); Potassium 3.5 mmol/L (3.5-5.1); Sodium 141 mmol/L (136-145); Total Protein 7.0 g/dL (5.7-8.2)
[2025-06-19 22:51] LABS: Acetaminophen < 2 ug/mL (10-20); Salicylate < 3.0 mg/dL (<30.0)
[2025-06-19 23:06] LABS: Glucose Negative (Negative); HCG Qual (Urine) Negative
[2025-06-19 23:14] LABS: C & S Indicated? No; RBC 0-2 HPF (0-2); WBC Negative HPF (0-5)
[2025-06-19 23:19] LABS: BE (Venous) 1 mmol/L (-2-3); HCO3 (Venous) 26 mmol/L (23-28); O2 Sat (Venous) 60 %; TCO2 (Venous) 25 mmol/L (24-29); pCO2 (Venous) 48 mmHg (41-51); pO2 (Venous) 33 mmHg
[2025-06-19 23:22] LABS: Cannabinoids THC Positive (Negative)
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
[2025-06-19] MEDS: Magnesium Gluconate 500 MG TAB 1000 MG PO (23:38)
[2025-06-20] VITALS (83 sets, daily range): BP systolic 70–108; BP diastolic 34–90; PULSE 43–92; RESP 8–31; TEMP 36.4–36.7; O2SAT 94–100
[2025-06-20] MEDS: Normal Saline 1,000 ML 75 ML IV (01:04)
[2025-06-20] MEDS: Midazolam 2 MG/2 ML VIAL 5 MG IM (01:45)
--- NOTE | 2025-06-20 02:03 | CE_ITS ---
Date of service: 06/20/25 Time of Service: 02:03 Event Note: At 1:29 AM I was called by senior warehouse clerk Cherelle Lyons to come to the patient's bedside as she was becoming severely agitated and attempting to leave. I was told that prior to my arrival the patient had requested to have access to her phone. It was explained to the patient that as per policy she could not have her phone, but that she could have access to one of the hospital provided phones if she wished. The patient then began to remove her IVs and get out of bed. During this time staff attempted to deescalate the situation by explaining to the patient she was engaging in unsafe behavior and politely asked her to return to her bed. The patient then tried to leave her room by was prevent by staffs presence at the door. Patient then slide herself to the ground along the wall without hitting her head and she began to pull at her own hair. At which time I had arrived, and immediately sat on the floor in an attempt to de-escalate the situation and meet the patient at eye level to engage her in conversation. Patient immediately became tearful stating please do not yell at me, I do not want to be in trouble. In a very soft and calm voice I reassured the patient that my only goal was to make sure that she is safe. Patient began to become increasingly more agitated and again attempted to leave the room and was stopped by multiple staff members at the door. At that time patient appeared unaware that she was being unsafe with her body and had became a significant risk to both herself and the staff and decision was made to administer chemical restraints with a 5 mg intramuscular dose of Versed. This decision was made given that the patient has been admitted for suicide attempt by overdosing on beta-blockers and Keppra, but is not yet deemed to be medically cleared. Therefore she is unable to make medical decisions for herself or leave the premises. This in combination with her being a danger to staff resulted in administration of 5 mg of IM Versed. Leading up to and while the medication was being administered it was explained to the patient that it was being given to calm her down and to make her safe. Shortly after administration the medication had desired effect and patient was able to calm down and be safely laid back down in the bed and have new IVs placed. Time Spent with Patient Time spent in critical care(minutes): 45 Time Spent Included: Coordination of care, Chart review, Documenting critically ill care, Time at immediate bedside and Discussing critically ill care with other medical staff
[2025-06-20 02:54] LABS: Salicylate < 3.0 mg/dL (<30.0)
[2025-06-20 03:01] LABS: Acetaminophen < 2 ug/mL (10-20)
--- NOTE | 2025-06-20 03:08 | NUR.NOTE ---
Nursing Note: At approx 0130 this mortgage loan underwriter was alerted by ICU staff of issue with pt. Responded to ICU to attempt de-escalation. Pt rapidly failed multiple de-escalation attempts by this mortgage loan underwriter and hospital security, was loudly screaming and had removed her IVs, openly bleeding from sites. Pt was notably lacking any personal safety awareness. was alerted and responded directly to ICU room. Please see Dr. Ferris's event record for further detail, as it does accurately represent the sequence of events.
[2025-06-20] MEDS: Normal Saline 1,000 ML 1000 ML IV (03:54)
--- NOTE | 2025-06-20 04:45 | NUR.NOTE ---
Nursing Note: Patient arrived to ICU, was toileted given a warm blanket and the arrival assessment completed without incident. While this headline writer was explaining the patient safety observer for suicide precautions the patient demanded her belongings (which were labeled with the patients ID number and placed securely in the directors office) and to speak with the house carpenter. This headline writer requested assistance and within minutes Cherelle Lyons arrived to assist with de-escalation by explaining limitations for personal belongings. This headline writer also asked for staff to request the the night hospitalist, Dr. Ferris to the patients bedside. Impulsively the patient sophia from the bed violently removing 2 IVs from the left and right arms, removed cardiac electrodes, the BP cuff and the oxygenation sensor. With blood from the IV sites soaking the patients chito, the curtain, bed linen and the floor hospital staff were unable to redirect the patient nor reassure the patient that she was safe. This headline writer read and agrees with the note written by Squeak Rattle And Leak Repairer Cherelle Lyons and Dr. Ferris.
[2025-06-20 06:32] LABS: HCT 32.5 % (36.0-46.0); HGB 10.6 g/dL (11.2-15.7); MCH 27.6 pg (27.0-33.0); MCHC 32.6 % (32.0-36.0); MCV 85 fL (80-95); MPV 10.4 fL (8.0-11.0); Platelet Count 147 10^3/uL (130-400); RBC 3.84 10^6/uL (3.93-5.22); RDW 13.4 % (11.7-14.6); RDW-SD 40.9 fL; WBC 5.46 10^3/uL (4.4-10.8)
[2025-06-20 06:48] LABS: Anion Gap 5 mmol/L (3-11); BUN 8 mg/dL (9-23); CO2 24.0 mmol/L (20.0-31.0); Calcium 7.8 mg/dL (8.3-10.6); Chloride 112 mmol/L (98-107); Glucose 86 mg/dL (74-106); Potassium 3.6 mmol/L (3.5-5.1); Sodium 141 mmol/L (136-145)
--- NOTE | 2025-06-20 08:39 | CMSP_ITS ---
Date of service: 06/20/25 Time of Service: 08:39 Care Management Safety Plan Status Status: Interim Reason for Wait Reason for Wait: Medical Clearance Safety Plan Safety Plan: CM will respond to ICU to assess patient after patient has been medically cleared and assessed by screener. If screener deems patient meets criteria for psychiatric stabilization CM will facilitate interdepartmental huddle with [facility] screener for safety planning considerations and meet with patient to review [facility] policy and safety plan, establish individual wishes for treatment and ma intain patient rights. In the interim; please note safety plan below to guide patient care while awaiting further assessment in the ED.? SAFETY PLAN: 1. Will remain on suicide precautions and in paper clothes - may wear hospital gown 2. Will remain in room under direct supervision of one-on-one staff at all times provided by AVELINA, CLIENT CARE SPECIALIST chip mixing machine operator. 3. May have paper cups, plates, finger foods as well as a cardboard spoon with which to eat meals. 4. Follow [facility] Management of the Admitted Behavioral Health Patient policy. 5. Comfort bath system only. 6. No personal belongings 7. No visitors. 8. Phone contact limited to hospital phone for legal use only 9. Due to VOLUNTARY status, if patient wishes to leave [facility], staff will contact [facility] Crisis Screener ([phone]) and On-Call Stock Preparation Operator ([phone]) as soon as possible. In the event of elopement, notify [facility] Police ([phone]). ? If deemed appropriate for inpatient psychiatric care, safety plan will be established with patient, and care team, to adhere to patient goals, identify restrictions based on behavioral status, address nutrition, and determine allowed personal belongings, tools for hygiene and personal care. As well plan will determine level of activity including ambulation, level of supervision, visitors, and determine privileges based on level of acuity, behaviors and level of engagement by patient.
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
--- NOTE | 2025-06-20 16:37 | PDOC.CMSAFE ---
Date of service: 06/20/25 Care Management Safety Plan Status Status: Voluntary Reason for Wait Reason for Wait: Inpatient Admission Safety Plan Safety Plan: VOLUNTARY FOR INPATIENT PSYCHIATRIC STABILIZATION.? Patient is appropriate in all interactions since arriving at [facility]; Pt has demonstrated appropriate coping and communication skills, has articulated his or her needs and concerns and is fully engaged during staff interactions. Safety plan has been established with patient, and care team, to adhere to patient goals, identify restrictions based on behavioral status, address nutrition, and determine allowed personal belongings, tools for hygiene and personal care. Determine level of activity including ambulation, level of supervision, visitors, and determine privileges based on behaviors and level of engagement by pt. SAFETY PLAN: 1. Will remain on suicide precautions, in paper clothes 2. Will remain in room under direct supervision of one-on-one staff at all times provided by [employer]; AVELINA, UROLOGY PHYSICIAN traffic safety administrator. 3. May have paper cups, plates, finger foods as well as a cardboard spoon with which to eat meals. 4. Follow [facility] Management of the Admitted Behavioral Health Patient policy. 5. Comfort bath system, shower permitted with escort at RN discretion. 6. Personal belongings-soft items permitted at RN discretion. 7. Visitors-none at this time- hospital lockstitch tunnel elastic operator and her facility service associate - Pastor Etienne ([phone])- may visit 8. Activities: soft cart items approved per RN discretion. 9.? Bathroom privileges in her med-surg room. 10. Phone: limited to cordless hospital phone at RN discretion. Due to VOLUNTARY status, if patient wishes to leave [facility], staff will contact [facility] Crisis Screener ([phone]) and On-Call Civil Engineering Project Designer ([phone]) as soon as possible. In the event of elopement, notify [place] [employer] ([phone]).
--- NOTE | 2025-06-20 16:39 | CHAPLAIN ---
I visited with Tash this afternoon after she finished meeting with a prepared foods team leader from [facility]. Tash said she was hungry and tired, that she hadn't eaten in three days. She asked if her lunch and dinner could be given to her. At lunchtime she decided she wanted to leave AMA and attempted to leave the floor and pulled out her IVs when she was told by security she couldn't leave with IVs in place. Acknowledging that she has met and interacted with many people today, I asked if there was anything she wanted to talk about with me. She said she has been calling out to God at times and feeling like she isn't getting a response. We talked about how sometime we anticipate very clear, direct messages from God, when we may actually be receiving quiet messages through out own insight or the the words of others. Tash was given a hospital phone to use to call her friend and she was interested in doing that. I offered come back tomorrow, but let her know finishing range feeder is available all the time.
[2025-06-20] MEDS: LORazepam 1 MG TAB PO (16:59)
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
[2025-06-21 01:15] VITALS: BP 97/54; PULSE 66; TEMP 36.4
[2025-06-21] MEDS: LORazepam 0.5 MG TAB PO ×3 (02:36→12:39)
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
[2025-06-21 12:33] VITALS: BP 96/60; PULSE 52
[2025-06-21 12:35] VITALS: BP 96/60; RESP 18; TEMP 37; O2SAT 94
--- NOTE | 2025-06-21 13:34 | CMDISCH_ITS ---
Date of service: 06/21/25 Time of Service: 13:34 LACE Index Scoring Tool Questions: Length of Stay (in days): 2 Was the patient admitted via the E.D.?: Yes E.D. Visits: 18 Answers: Total Score: 9 Risk of Readmission: Low Risk Care Management Discharge Plan Reason for Hospitalization: intentional overdose Discharge Plan: Tash was accepted to [facility] for inpatient care today. She was transported via EMS [facility] Health Related Social Needs: Health related social needs inadequate housing risk of homeless personal safety house/econ circumstance lonely/isolated Health related social needs details PT C/O ISSUES W/ F INDING 'AN APPROPRIATE MEDICAL PROVIDER' AND STATES HER CERTIFIED REGISTERED DENTAL ASSISTANT HAS BEEN FIRED AND HAS NOT HAD HELP W/ NEW ONE. Health related social needs details: PT C/O ISSUES W/ FINDING 'AN APPROPRIATE MEDICAL PROVIDER' AND STATES HER CERTIFIED REGISTERED DENTAL ASSISTANT HAS BEEN FIRED AND HAS NOT HAD HELP W/ NEW ONE. MH Services (Omit if N/A) Current MH Services: [facility] Referred to Internal [facility] (ED embedded) cyanide case hardener?: No (has a cyanide case hardener at [facility], Frankie Finnegan) Disposition Disposition: [place] Transport via of: EMS
--- NOTE | 2025-06-21 13:34 | PDOC.CMDIS ---
Date of service: 06/21/25 Time of Service: 13:34 LACE Index Scoring Tool Questions: Length of Stay (in days): 2 Was the patient admitted via the E.D.?: Yes E.D. Visits: 18 Answers: Total Score: 9 Risk of Readmission: Low Risk Care Management Discharge Plan Reason for Hospitalization: intentional overdose Discharge Plan: Tash was accepted to [facility] for inpatient care today. She was transported via EMS [facility] Health Related Social Needs: Health related social needs inadequate housing risk of homeless personal safety house/econ circumstance lonely/isolated Health related social needs details PT C/O ISSUES W/ FINDING 'AN APPROPRIATE MEDICAL PROVIDER' AND STATES HER CUSTOM LEATHER PRODUCTS MAKER HAS BEEN FIRED AND HAS NOT HAD HELP W/ NEW ONE. Health related social needs details: PT C/O ISSUES W/ FINDING 'AN APPROPRIATE MEDICAL PROVIDER' AND STATES HER CUSTOM LEATHER PRODUCTS MAKER HAS BEEN FIRED AND HAS NOT HAD HELP W/ NEW ONE. MH Services (Omit if N/A) Current MH Services: [facility] Referred to Internal [facility] (ED embedded) correctional case manager?: No (has a correctional case manager at [facility], Frankie Finnegan) Disposition Disposition: [place] Transport via of: EMS
--- NOTE | 2025-06-24 03:21 | W.PC.ACHO ---
Registration Status: DIS IN Primary Language: Preferred Language: Slovak ED Information & Data Chief Complaint OD/Poison 06/19/25 22:26 Triage Note Pt BIBEMS s/p intentional 06/19/25 22:11 ingestion of PO metoprolol and keppra of unknown quantities d/t recent break up w/ SO. Per EMS possible sz activity enroute and decreasing LOC Medical / Surgical History (Last Updated 05/02/25 @ 02:34 by Augusto Williamson MD) ISAÍAS (generalized anxiety disorder) PTSD (post-traumatic stress disorder) OCD (obsessive compulsive disorder) Psychogenic nonepileptic seizure Most Recent Vital Signs Temperature 37.0 C 06/21/25 12:35 Temperature Source Temporal Artery Scan 06/21/25 12:35 Pulse 52 L 06/21/25 12:33 Pulse 62 06/20/25 14:32 Respiratory Rate 18 06/21/25 12:35 Respiratory Effort Normal, Non-Labored 06/20/25 01:00 Respiratory Depth Normal 06/20/25 01:00 Respiratory Pattern Normal 06/20/25 01:00 Blood Pressure 96/60 L 06/21/25 12:35 Blood Pressure Mean 72 06/21/25 12:35 Blood Pressure Position Supine 06/20/25 01:00 Pulse Oximetry 94 06/21/25 12:35 Respiratory End-tidal CO2 33 06/20/25 11:01 Oxygen Delivery Method Room Air 06/21/25 12:35 Oxygen Flow Rate 0 06/21/25 12:35 Pain Level 0 06/21/25 13:50 Comment cuff on L arm/pt L side lying 06/20/25 03:37 Allergies haloperidol (From Haldol) Allergy (Severe, Verified 06/19/25 22:38) Agitation pt states med increases seizure activity pt states - hives prochlorperazine (From Compazine) Adverse Reaction (Severe, Verified 06/19/25 22:38) Anaphylaxis gabapentin Adverse Reaction (Intermediate, Verified 06/19/25 22:38) Agitation makes me go crazy lorazepam (From Ativan) Adverse Reaction (Intermediate, Verified 06/19/25 22:38) Agitation pt states it makes me crazy mentally unstable - hallucinations, delusions, sometimes makes me angry midazolam (From Versed) Adverse Reaction (Intermediate, Verified 06/19/25 22:38) Psychosis gives me hallucinations, delusions, and makes me angry Precautions Isolation Seizure precaution 06/19/25 22:22 IV IV Catheter Type [Left Forearm Saline Lock ] IV Catheter Type [Right Peripheral IV Forearm] IV Catheter Type [Left Saline Lock Antecubital] IV Catheter Type [Right Saline Lock Antecubital] IV Catheter Gauge [Left 20 Forearm] IV Catheter Gauge [Right 20 Forearm] IV Catheter Gauge [Left 18 Antecubital] IV Catheter Gauge [Right 18 Antecubital] Sxzon-ya-Ycea Documentation Fingerstick Glucose Start: 06/20/25 11:14 Freq: Status: Discharge Protocol: Activity Type Activity Date Activity User E-sign Co-sign Detail Recorded Client Recorded Date Recorded By Document 06/20/25 11:13 BKG DAEMON(9) [id number] 06/20/25 11:14 BKG DAEMON(10) POC Urine Test Start: 06/19/25 22:23 Freq: .Urine Test Status: Discharge Protocol: Activity Type Activity Date Activity User E-sign Co-sign Detail Recorded Client Recorded Date Recorded By Document 06/19/25 23:12 LB ER01 06/19/25 23:12 LB Intake and Output - 24 Hour Total 06/19/25 22:07 thru 06/21/25 13:16 Intake Total 3200 Output Total 2400 Balance 800 Weight 56.9 kg Intake: IV 3000 Oral 200 Output: Urine 2400 Other: Urine Color Yellow Urine Appearance Clear Urine Odor None Comment p.t asleep Stool Size Moderate Stool Characteristics Soft # Voids 2 Falls Risk Assessment History of Falls No History 06/20/25 01:00 Contributing Factors Unstable 06/20/25 01:00 Ambulatory Aids Independent 06/20/25 01:00 Tubes/Lines With any additional score 06/20/25 01:00 Gait Evaluation No gait disturbance 06/20/25 01:00 Cognition No cognitive impairment 06/20/25 01:00 Fall Total Score 23 06/20/25 01:00 Level of Risk Standard/Low Risk 06/20/25 01:00 Problems (Last Updated 05/02/25 @ 02:34 by Augusto Williamson MD) Suicide attempt by beta lolis overdose (Acute) Bipolar disorder (Acute) POTS (postural orthostatic tachycardia syndrome) (Acute) Seizure-like activity (Acute) Notes 06/20/25 04:45 Nursing Notes by Amanda Venegas Nursing Note: Patient arrived to ICU, was toileted given a warm blanket and the arrival assessment completed without incident. While this check writer was explaining the patient safety observer for suicide precautions the patient demanded her belongings (which were labeled with the patients ID number and placed securely in the directors office) and to speak with the live in housekeeper nanny. This check writer requested assistance and within minutes Cherelle Lyons arrived to assist with de-escalation by explaining limitations for personal belongings. This check writer also asked for staff to request the the night hospitalist, Dr. Ferris to the patients bedside. Impulsively the patient sophia from the bed violently removing 2 IVs from the left and right arms, removed cardiac electrodes, the BP cuff and the oxygenation sensor. With blood from the IV sites soaking the patients chito, the curtain, bed linen and the floor hospital staff were unable to redirect the patient nor reassure the patient that she was safe. This check writer read and agrees with the note written by Box Person Cherelle Lyons and Dr. Ferris. Initialized on 06/20/25 04:45 - END OF NOTE 06/20/25 03:08 Nursing Notes by Cherelle Lyons Nursing Note: At approx 0130 this check writer was alerted by ICU staff of issue with pt. Responded to ICU to attempt de-escalation. Pt rapidly failed multiple de-escalation attempts by this check writer and hospital security, was loudly screaming and had removed her IVs, openly bleeding from sites. Pt was notably lacking any personal safety awareness. was alerted and responded directly to ICU room. Please see Dr. Ferris's event record for further detail, as it does accurately represent the sequence of events. Initialized on 06/20/25 03:08 - END OF NOTE 06/19/25 22:40 Nursing Notes by Rosalinda Montgomery @ APPROX [id number] Pt began demonstrating seizure-like activity, w/ small generalized full body twitches and not responding to verbal commands and wincing w/ sternal rub but not responding or localizing. MD Willson at bedside to assess and pt body twitching more pronounced. R nare NPA placed by MD Willson and pt seizure activity resolved, pt promptly awake, coughing on NPA and removed it spontaneously. Answering questions from this RN immediately afterward. Initialized on 06/19/25 22:40 - END OF NOTE Attestation Statement: By documenting the first initial, last name, and credentials of the reporting nurse below, both parties acknowledge that all relevant information regarding the patient handoff has been communicated, and that all questions have been addressed to ensure continuity and safety of care. Additional Patient Information/Comments: Report Received From: Pablito Montgomery RN all questions answered: yes
== END 2025-06-21 13:38 | DRG 918 ==
LOC: ER 23:37 → ICU 06-20 03:07
PROVIDERS: Admitting Provider Family Medicine; Emergency Provider Student in an Organized Health Care Education/Training Program; PCP Family Medicine; Responsible Provider Family Medicine; Visit Provider Family Medicine
DX: T44.7X2A Poisoning by beta-adrenoreceptor antagonists, intentional self-harm, initial encounter (principal); T42.6X2A Poisoning by other antiepileptic and sedative-hypnotic drugs, intentional self-harm, initial encounter; R00.1 Bradycardia, unspecified; F31.9 Bipolar disorder, unspecified; R56.9 Unspecified convulsions; Z79.899 Other long term (current) drug therapy; G90.A Postural orthostatic tachycardia syndrome [POTS]; Z91.52 Personal history of nonsuicidal self-harm; M54.50 Low back pain, unspecified; R51.9 Headache, unspecified; K76.0 Fatty (change of) liver, not elsewhere classified; D64.9 Anemia, unspecified; F41.1 Generalized anxiety disorder; F43.10 Post-traumatic stress disorder, unspecified; R45.1 Restlessness and agitation
CPT/HCPCS: 00123; 36415; 80048; 80053; 80307; 81025; 82805; 85027; 93005; 96127; 99291; 80320; 80329; 81003; 81015; 83605; 83735; 85025; 93010; 99223; 99233; 99238; J2250